=== PATIENT | female | born 1940 | race Caucasian/White ===

== ENCOUNTER 2022-12-31 14:52 | Outpatient (REF) | payer MEDICARE, SELFPAY ==
--- NOTE | ~2022-12-31 | XR_ITS ---
EXAMINATION: XR SHOULDER, RIGHT CLINICAL INFORMATION: Reason for Exam M25.511 - Pain in right shoulder COMPARISON: None TECHNIQUE: Three views of the shoulder. FINDINGS: No acute fracture or dislocation. Loss of subacromial joint space which can be seen in the setting of rotator cuff pathology. Dense nonspecific soft tissue calcifications in the arm measuring up to 1.5 cm. Moderate degenerative changes of the common clavicular and glenohumeral joints with loss of joint space.. A 2 cm calcification in the subacromial joint space may reflect a loose body. XR/XR shoulder RT min 2V IMPRESSION: 1. Loss of subacromial joint space which can be seen in the setting of rotator cuff pathology. 2. Moderate degenerative changes of the shoulder with a 2 cm calcification in the subacromial joint space may reflect a loose body. 3. No acute fracture or dislocation.
[2022-12-31 17:21] LABS: MANUAL DIFF FLAG NO
[2022-12-31 17:59] LABS: Basophils Percent Auto 0.5 % (0-2); Eosinophils Percent Auto 0.5 % (0-4); Hematocrit 40.6 % (37.0-47.0); Hemoglobin 13.2 g/dl (12.0-16.0); Imm Gran Abs Auto 0.02 X10*3/uL (0.00-0.03); Imm Gran Pct Auto 0.3 % (0.0-0.4); Lymphocytes Absolute Auto 0.9 X10*3/uL (1.2-4.9); Lymphocytes Percent Auto 14.4 % (20-40); Mean Corpuscular HGB Conc 32.5 g/dl (31.0-35.0); Mean Corpuscular Hemoglobin 31.7 pg (27.0-33.0); Mean Corpuscular Volume 97.6 fL (80.0-98.0); Mean Platelet Volume 11.6 fL (9.4-12.3); Monocytes Absolute Auto 0.4 X10*3/uL (0.1-1.2); Monocytes Percent Auto 6.7 % (2-11); Neutrophils Percent Auto 77.6 % (45-73); Platelet Count 301 X10*3/uL (160-400); Red Blood Count 4.16 X10*6/uL (4.20-5.50); Red Cell Distribution Width 14.1 % (11.0-16.0); White Blood Count 6.5 X10*3/uL (4.8-10.8)
[2022-12-31 18:34] LABS: Alanine Aminotransferase 27 U/L (0-31); Albumin Level 4.7 g/dL (3.5-5.0); Alkaline Phosphatase 49 U/L (39-117); Anion Gap 15 (12-20); Aspartate Amino Transferase 27 U/L (5-31); Bilirubin Total 0.7 mg/dL (0.0-1.0); Blood Urea Nitrogen 23 mg/dL (9-16); C Reactive Protein < 0.10 mg/dL (< or = 0.50); Calcium 10.2 mg/dL (8.4-10.2); Carbon Dioxide 28 mmol/L (22-29); Chloride 104 mmol/L (96-108); Estimated Glomerular Filt Rate > 60; Glucose Random 91 mg/dL (60-115); Potassium 3.9 mmol/L (3.3-5.1); Sodium 143 mmol/L (135-145); Total Protein 6.8 g/dL (6.5-8.0)
[2022-12-31 18:36] LABS: Erythrocyte Sedimentation Rate 13 MM/HR (0-20)
== END 2022-12-31 14:53 | disposition home or self-care (01) ==
LOC: HO.XRAY 14:52
PROVIDERS: PCP Physician Assistant Medical; Visit Provider Nurse Practitioner Family
DX: M34.9 Systemic sclerosis, unspecified (principal); M25.511 Pain in right shoulder; I73.00 Raynaud's syndrome without gangrene; M25.50 Pain in unspecified joint; M79.10 Myalgia, unspecified site; Z79.899 Other long term (current) drug therapy; Z79.52 Long term (current) use of systemic steroids
CPT/HCPCS: 36415; 73030; 80053; 85025; 85652; 86140; 99202

== ENCOUNTER → 2023-01-24 13:09 | Outpatient (BNVA) | payer MEDICARE, SELFPAY | PROVIDERS: PCP Physician Assistant Medical; Visit Provider Nurse Practitioner Family | DX: M34.9 Systemic sclerosis, unspecified (principal); I73.00 Raynaud's syndrome without gangrene; M25.511 Pain in right shoulder; Z79.52 Long term (current) use of systemic steroids; Z79.899 Other long term (current) drug therapy | CPT/HCPCS: 99212 ==

== ENCOUNTER → 2023-01-25 12:35 | Outpatient (REF) | payer MEDICARE, SELFPAY ==
--- NOTE | 2023-01-25 12:38 | CA_ITS ---
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 The visually estimated ejection fraction is between 65-70%. - Normal right ventricular cavity size and systolic function. - The left atrium is likely dilated. The right atrium is normal in size. - Aortic sclerosis without stenosis. - Tricuspid regurgitation envelope is inadequate for calculation of right ventricular systolic pressure. Normal right atrial pressure. Findings Left Ventricle Normal left ventricular size and systolic function. The visually estimated ejection fraction is between 65-70%. There is no evidence of regional wall motion abnormalities. Diastolic function is indeterminate on the basis of available data. There is mild septal asymmetric hypertrophy. Left ventricular filling pressures are indeterminate. Right Ventricle Normal right ventricular cavity size and systolic function. Atria The left atrium is likely dilated. The right atrium is normal in size. Aortic Valve There is mild calcification of the aortic valve. There is no aortic valve regurgitation. Aortic sclerosis without stenosis. Mitral Valve There is severe mitral annular calcification. There is mild mitral valve regurgitation. There is no mitral valve stenosis. Pulmonic Valve Normal pulmonic valve structure and function. There is trace pulmonic valve regurgitation. Tricuspid Valve Normal tricuspid valve structure and function. There is trace tricuspid valve regurgitation. Tricuspid regurgitation envelope is inadequate for calculation of right ventricular systolic pressure. Normal right atrial pressure. Great Vessels All visible segments of the aorta are normal in size. The visualized portions of the pulmonary artery and branches are normal. Venous The inferior vena cava is normal in size and collapses greater than 50% with inspiration. Pericardium/Pleural There is no evidence of pericardial effusion. Prior Study Comparison No prior study available for comparison. Measurements 2D Linear Measurements IVSd: 1.19 0.6-0.9/0.6-1.0 cm LVIDd: 4.26 3.9-5.3/4.2-5.9 cm LVIDd Index: 2.78 2.4-3.2/2.2-3.1 cm/m2 LVIDs: 2.55 2.0-3.6 cm LVPWd: 0.69 0.7-1.1 cm LA Diam: 3.50 2.7-3.8/3.0-4.0 cm LAIDs Index: 2.29 1.5-2.3 cm/m2 LV Mass: 160.33 67-162/88-224 g LV Mass Index: 104.79 43-95/49-115 g/m2 LVOT Diam: 1.80 3.0+(-)1.3 cm 2D Systolic Function EF 4C: 74.60 >55% EF 2C: 71.70 >55% EF BiP: 72.50 >55% Mitral Valve MV Pk E: 1.11 MV PK A: 1.11 MV Decel Time: 186.00 E/A: 1.00 E'Lateral: 6.31 E'Medial: 6.42 E/E' Med: 17.30 E/E' Lat: 17.60 PHT: 54.00 MVA PHT: 4.07 Decel [place]: 5.99 Aortic Valve AoV Pk Olu: 1.90 AoV Mn Oul: 1.27 AoV VTI: 0.47 AoV Pk Grad: 14.00 Aov Mn Grad: 8.00 PEDRITO Cont.VTI: 1.59 LVOT LVOT Pk Olu: 1.16 LVOT Mn Olu: 0.82 LVOT VTI: 0.30 LVOT Pk Grad: 5.00 LVOT Mn Grad: 3.00 LVOT Diam: 1.80 LVOT Area: 2.54 Diastolic Function MV Pk E: 1.11 MV Pk A: 1.11 E/A: 1.00 E'Medial: 6.42 E/E' Med: 17.30 E' Laterial: 6.31 E/E' Lat: 17.60 Right Ventricle TAPSE (mm): 20.70 TVS' Olu: 8.05 Tricuspid Valve RA Press: 8.00 Great Vessels Aorta Sinus of Valsalva: 2.80 2.0-3.5 cm Ao Asc: 3.10 2.1-3.4 cm Ao Arch: 3.00 Ao Desc: 1.50 Pulmonary Valve PV Pk Olu: 0.84 Peak PV Grad: 3.00 Updated in Other Vendor System with Status of Final Woo Guerrero MD electronically signed on 01/27/2023 11:31:34 AM with status of Final
== END ==
LOC: HO.CARD 12:35
PROVIDERS: PCP Physician Assistant Medical; Visit Provider Nurse Practitioner Family
DX: M34.9 Systemic sclerosis, unspecified (principal)
CPT/HCPCS: 93306

== ENCOUNTER 2023-04-15 13:31 | Outpatient (AMB) | payer MEDICARE, SELFPAY ==
[2023-04-15 13:34] VITALS: BP 122/64; PULSE 68; TEMP 36.7; BMI 25.5
--- NOTE | 2023-04-15 13:34 | A.OFFVIS_ITS ---
Intake Vital Signs 04/15/23 13:34 Height 5 ft Weight 130 lb 8.218 oz BMI 25.5 BP 122/64 Blood Pressure Location Rt brachial Position Sitting Pulse 68 Pulse Source Palpation Temp 98.1 F Temp Source Skin Intake Visit Reasons: Limited Scleroderma Shipping Receiving Clerk Required: No Accompanied by: Self / Same As Patient Allergies itraconazole [From Sporanox] Allergy (Intermediate, Verified 04/15/23 13:37) hives sulfamethoxazole [From Bactrim] Allergy (Unknown, Verified 04/15/23 13:37) Thrush trimethoprim [From Bactrim] Allergy (Unknown, Verified 04/15/23 13:37) Unknown HPI HPI Comments History of Present Illness Details The patient returns for evaluation of her rheumatic disease. This has been called undifferentiated connective tissue disease but recently she has had calcified nodules removed from the tips of fingers in the left hand. This was consistent with cutaneous calcinosis so with the Raynaud's symptoms, sclerodactyly, and positive anticentromere antibody this seems most consistent with CREST syndrome. She complains mostly today of right shoulder, right knee, and bilateral hip pain. She says walking is limited because of hip pain, right greater than left. She has a planned visit with a doctor who does injections, I would presume they are trochanteric bursa injections that might help her with her walking. She also gets pain and injections in the left knee. She recently had an injection in the left knee in March but it is symptomatic again so it did not really work very well. She gets also occasional injections in the right shoulder and thinks she needs another one there as well. She remains on the methotrexate but we had to reduce the dose to 12.5 mg weekly with folic acid 1 mg daily and hydroxychloroquine 300 mg daily. The prednisone has been reduced to 2 mg daily. She is on monthly ibandronate orally for osteopenia. 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 Negative for appetite change, weight change, fever, chills, malaise Eyes Details: Negative for vision change, dry eyes,headaches and dizziness ENT Details: Some oral dryness. Negative for hearing change, tinnitus, oral ulcer, nose bleeds . Card Details: Negative chest pain, edema and syncope Resp Details: Negative for SOB, cough and wheezing GI Details: Negative indigestion/heartburn, nausea, dysphagia, abdominal pain, bowel changes, diarrhea, constipation and bloody stool. Skin/Breast Details: Raynaud's symptoms not all that bothersome. No real change in the tight skin in the fingertips. No cutaneous ulcerations. The removal of the calcified nodules from the left 3rd and 4th finger was uneventful with good healing. Negative for itching, rash, hives, sun sensitivity, and skin cancer Endo Details: Negative for polyuria and polydypsia Pollo/Lymph Details: Negative for excessive bruising or bleeding. Physical Exam Vital Signs: Last Vital Signs Temp 98.1 F 04/15/23 13:34 Pulse 68 04/15/23 13:34 BP 122/64 04/15/23 13:34 BMI result Body Mass Index 25.5 APPEARANCE: Patient in no acute distress EYES no redness, pupils equal and reactive to light, eyelids normal EARS: External ear normal, canal clear and tympanic membrane normal. NOSE/SINUS: Airflow through both nares, no nasal discharge, no bleeding THROAT: Oral mucosa moist, no ulcerations NECK: No thyromegaly or masses, no adenopathy, trachea midline. HEART: Regulrar rhythm, S1-S2 heard, no murmurs, rubs or gallops. LUNG: Clear to percussion and auscultation ABD: Normal bowel sounds, no organomegaly, masses or tenderness. EXTREMITIES: No edema, no calf tenderness, normal peripheral pulses. NEURO: Oriented and alert x3. No focal weakness. Reflexes symmetric. Gait normal. SKIN: No inflammatory or neoplastic lesions. Normal color and turgor JOINT EXAM: ?? NEURO:? Oriented and alert x3.? No focal weakness.? Gait antalgic, uses a cane or a walker. She has difficulty standing up from a chair mostly due to hip and knee pain. SKIN: Many scattered telangectasia on face. Few on fingers.? Some tightness of skin distal to the MCPs but no ulcerations. There is some nodularity in the tip of the 2nd and 3rd fingers of the right hand suggesting some cutaneous ca lcifications. The site on the other hand where the tips of the fingers were operate on seem to have healed well. JOINT EXAM: Cervical Spine: Full range of motion without pain; no tenderness. Thoracic Spine: Kyphotic.? No tenderness on palpation. Lumbar Spine: Alignment normal.? Full range of motion without pain, no tenderness. Hands: LEFT:? left thumb subluxed lateral at the MCP. ? Slight thickening without tenderness at the 1st 3 MCPs and the 2nd and 3rd PIP's.? Mild bony enlargement without tenderness at the 4th and 5th PIP joints. No sensory loss or thenar atrophy. ? RIGHT: Full range of motion. Slight thickening at the thumb MCP without tenderness. There is mild bony enlargement at the 3rd through 5th PIP and the 5th D IP joints without tenderness. Slight flexion deformity at the 5th DIP and in the PIP'is. Wrists:? Normal pain-free range of motion without tenderness, swelling, increased warmth or erythema. Elbows: Normal pain-free range of motion without tenderness, swelling, increased warmth or erythema. Shoulders:??LEFT: Full range of motion without pain. No tenderness, weakness, swelling, increased warmth or erythema. ? RIGHT: Pain with 90 degrees of flexion at 90 degrees of abduction or with more than 20 degrees of rotation. There is slight AC joint tenderness and moderate tenderness anteriorly and posteriorly in the shoulder without swelling. There may be some abductor weakness. No adenopathy. degrees. Hips: Snod-sm-wkyfkzaf buttock and lateral hip pain with extremes of normal internal or external rotation. No groin pain with motion. Hip bursa:? Moderate right and mild left trochanteric tenderness. Knees:?? LEFT: Mild to moderate pain with more than 45 degrees flexion or extension. There is a small effusion evident with mild medial tenderness. There is mild patellofemoral crepitus and some trace popliteal tenderness. No redness or warmth. ? RIGHT: Slight pain with extremes of flexion or extension. There is mild crepitus with mild medial and lateral tenderness but no effusion, redness, or warmth. Ankles: Normal pain-free range of motion without tenderness, swelling, increased warmth or erythema. Feet: No tenderness. Results Reviewed Results Reviewed: Laboratory Tests 12/31/22 12/31/22 12/31/22 17:18 17:18 17:18 WBC 6.5 Hgb 13.2 ESR 13 Creatinine 0.77 AST 27 ALT 27 C-Reactive Protein < 0.10 Labs from [facility] reference labs: 04/02/2023: Hemoglobin 11.7, white count 5.8, ESR 6, creatinine 0.6, SGOT 23, SGPT 23, CRP less than 0.3 [place] [id number] XRay Report Signed Patient: Basilia Miramontes MR#: [id number] : 1940 Acct:[id number] Age/Sex: 82 / F ADM Date: 12/31/[address]: Madiha Barnes NP Ordering Physician: Madiha Barnes NP Date of Service: 12/31/22 Procedure(s): XR shoulder RT min 2V Accession Number(s): [id number] cc: Madiha Barnes NP~ EXAMINATION: XR SHOULDER, RIGHT CLINICAL INFORMATION: Reason for Exam M25.511 - Pain in right shoulder COMPARISON: None? TECHNIQUE: Three views of the shoulder. FINDINGS: No acute fracture or dislocation. Loss of subacromial joint space which can be seen in the setting of rotator cuff pathology. Dense nonspecific soft tissue calcifications in the arm measuring up to 1.5 cm. Moderate degenerative changes of the common clavicular and glenohumeral joints with loss of joint space.. A 2 cm calcification in the subacromial joint space may reflect a loose body. XR/XR shoulder RT min 2V IMPRESSION: 1.? Loss of subacromial joint space which can be seen in the setting of rotator cuff pathology. 2.? Moderate degenerative changes of the shoulder with a 2 cm calcification in the subacromial joint space may reflect a loose body. 3.? No acute fracture or dislocation. ? Dictated By: Conchita Lema MD Assessment & Plan Assessment & Plan (1) FDC use of drug: Code(s): Z79.899 - Other long wall mining machine tender (current) drug therapy (2) Osteopenia: Code(s): M85.80 - Other specified disorders of bone density and structure, unspecified site (3) Limited scleroderma: Code(s): M34.9 - Systemic sclerosis, unspecified (4) Hip pain, bilateral: Code(s): M25.551 - Pain in right hip; M25.552 - Pain in left hip (5) Undifferentiated connective tissue disease: Comment: hx of mild sclerodactyly; Positive DIAMANTE centromere, Rheumatoid factor positive, C CP negative. 01/2023-Cutaneous calcifications removed from the fingertips of the left hand. History of synovitis in hands - methotrexate 7 tabs weekly, 1mg folic acid daily, 3mg prednisone daily and plaquenil 300mg po daily. Previously on leflunomide discontinued around 06/2022 due to weight loss. Code(s): M35.9 - Systemic involvement of connective tissue, unspecified (6) Osteoarthritis of right glenohumeral joint: Code(s): M19.011 - Primary osteoarthritis, right shoulder (7) CREST (calcinosis, Raynaud's phenomenon, esophageal dysfunction, sclerodactyly, telangiectasia): Comment: hx of mild sclerodactyly; Positive DIAMANTE centromere, Rheumatoid factor positive, CCP negative. 01/2023-Cutaneous calcifications removed from the fingertips of the left hand. History of synovitis in hands - methotrexate 7 tabs weekly, 1mg folic acid daily, 3mg prednisone daily and plaquenil 300mg po daily. Previously on leflunomide discontinued around 06/2022 due to weight loss. Code(s): M34.1 - CR(E)ST syndrome Plan The patient has some findings of CREST syndrome: Calcinosis, Raynaud's, sclerodactyly and telangiectasias. The anticentromere antibody is positive. She also has findings mostly of osteoarthritis involving the hands and the left knee. The cause of her hip pain is unclear. It could be from hip joint OA but she has fairly good range of motion in the hips. More likely it is referred pain from the lumbar spine OA or some trochanteric bursitis. We will see how the planned injection works to improve her walking. I will get some hip films to try to clarify whether she might have some hip joint pathology. There is a question as to how much of her disease is reversible and due to active inflammation versus secondary and primary osteoarthritis at this point. We had cut back on her methotrexate because of LFT abnormalities. I am not sure she has enough synovitis here to push for more aggressive treatment with a biologic. If the back pain and hip pain improve with the corticosteroid injection and the left knee remains a problem she may need a knee replacement at this point. She should remain on the ibandronate for the osteoporosis. A follow-up in 2 months is recommended with lab work before that visit. Orders: Orders XR hip LT min 2V Today M25.551 - Pain in right hip, M25.552 - Pain in left hip XR hip RT min 2V Today M25.551 - Pain in right hip, M25.552 - Pain in left hip Alanine Aminotransferase Today M35.9 - Systemic involvement of connective tissue, unspecified, Z79.899 - Other long wall mining machine tender (current) drug therapy Aspartate Amino Transferase Today M35.9 - Systemic involvement of connective tissue, unspecified, Z79.899 - Other long wall mining machine tender (current) drug therapy Creatinine Today M35.9 - Systemic involvement of connective tissue, unspecified, Z79.899 - Other senior living (current) drug therapy C Reactive Protein Today M35.9 - Systemic involvement of connective tissue, unspecified Complete Blood Count Auto Diff Today M35.9 - Systemic involvement of connective tissue, unspecified, Z79.899 - Other senior living (current) drug therapy Erythrocyte Sedimentation Rate Today M35.9 - Systemic involvement of connective tissue, unspecified Coding Level of Care Code Est Pt Level 4 (17689) Diagnoses terminologist use of drug Z79.899 Osteopenia M85.80 Limited scleroderma M34.9 Hip pain, bilateral M25.551; M25.552 Undifferentiated connective tissue disease M35.9 Osteoarthritis of right glenohumeral joint M19.011 CREST (calcinosis, Raynaud's phenomenon, esophageal dysfunction, sclerodactyly, telangiectasia) M34.1
== END 2023-04-15 14:28 | disposition home or self-care (01) ==
PROVIDERS: PCP Physician Assistant Medical; Visit Provider Internal Medicine Rheumatology
DX: M34.9 Systemic sclerosis, unspecified (principal); M34.1 CR(E)ST syndrome; Z79.899 Other long term (current) drug therapy; M85.80 Other specified disorders of bone density and structure, unspecified site; M25.551 Pain in right hip; M25.552 Pain in left hip; M19.011 Primary osteoarthritis, right shoulder; M35.9 Systemic involvement of connective tissue, unspecified
CPT/HCPCS: 99214

== ENCOUNTER 2023-04-15 13:31 | Outpatient (REF) | payer MEDICARE, SELFPAY ==
--- NOTE | ~2023-04-15 | XR_ITS ---
EXAMINATION: XR HIP, RIGHT CLINICAL INFORMATION: Pain. COMPARISON: None available. TECHNIQUE: AP and frog-leg lateral views of the right hip. FINDINGS: There is mild bony demineralization. Bony alignment is normal. The right acetabular joint space is well-maintained. Loose bodies are questioned within the joint space. No fracture or dislocation is seen. The right femoral head is smooth. The right sacroiliac joint and the pubic symphysis are intact. Multiple enthesophytes are noted. There is no foreign body. XR/XR hip LT min 2V IMPRESSION: 1. No unusual degenerative change of the right hip is seen. 2. There is no fracture or dislocation. 3. Loose bodies are questioned within the right hip joint space. EXAMINATION: XR HIP, LEFT CLINICAL INFORMATION: Pain. COMPARISON: None available. TECHNIQUE: AP and frog-leg lateral views of the left hip. FINDINGS: There is mild bony demineralization. Bony alignment is normal. The left acetabular joint space is well-maintained. There is mild subchondral sclerosis and peripheral osteophyte formation of the left acetabular roof. As a contralateral side, a loose body is questioned within the joint space. No fracture or dislocation is seen. The left femoral head is smooth. The left sacroiliac joint is intact. There are enthesophytes of the iliac spine and the greater tuberosity proximal left humerus. No foreign body is seen. IMPRESSION: 1. There is very mild osteoarthritic change of the left hip. 2. There is no fracture or dislocation. 3. A loose body is questioned within the left hip joint space.
--- NOTE | ~2023-04-15 | XR_ITS ---
EXAMINATION: XR HIP, RIGHT CLINICAL INFORMATION: Pain. COMPARISON: None available. TECHNIQUE: AP and frog-leg lateral views of the right hip. FINDINGS: There is mild bony demineralization. Bony alignment is normal. The right acetabular joint space is well-maintained. Loose bodies are questioned within the joint space. No fracture or dislocation is seen. The right femoral head is smooth. The right sacroiliac joint and the pubic symphysis are intact. Multiple enthesophytes are noted. There is no foreign body. XR/XR hip RT min 2V IMPRESSION: 1. No unusual degenerative change of the right hip is seen. 2. There is no fracture or dislocation. 3. Loose bodies are questioned within the right hip joint space. EXAMINATION: XR HIP, LEFT CLINICAL INFORMATION: Pain. COMPARISON: None available. TECHNIQUE: AP and frog-leg lateral views of the left hip. FINDINGS: There is mild bony demineralization. Bony alignment is normal. The left acetabular joint space is well-maintained. There is mild subchondral sclerosis and peripheral osteophyte formation of the left acetabular roof. As a contralateral side, a loose body is questioned within the joint space. No fracture or dislocation is seen. The left femoral head is smooth. The left sacroiliac joint is intact. There are enthesophytes of the iliac spine and the greater tuberosity proximal left humerus. No foreign body is seen. IMPRESSION: 1. There is very mild osteoarthritic change of the left hip. 2. There is no fracture or dislocation. 3. A loose body is questioned within the left hip joint space.
== END 2023-04-15 13:32 | disposition home or self-care (01) ==
LOC: HO.XRAY 13:31
PROVIDERS: Visit Provider Internal Medicine Rheumatology
DX: M85.80 Other specified disorders of bone density and structure, unspecified site (principal); M34.9 Systemic sclerosis, unspecified; M25.551 Pain in right hip; M25.552 Pain in left hip; M35.9 Systemic involvement of connective tissue, unspecified; M19.011 Primary osteoarthritis, right shoulder; Z79.899 Other long term (current) drug therapy
CPT/HCPCS: 73502; 99212

== ENCOUNTER 2023-07-01 14:12 | Outpatient (AMB) | payer MEDICARE, SELFPAY ==
[2023-07-01 14:37] VITALS: BP 110/74; PULSE 60; RESP 14; TEMP 36.3; BMI 25.1
--- NOTE | 2023-07-01 14:37 | MHC.OFFVIS ---
Intake Vital Signs 07/01/23 14:37 Height 5 ft Weight 128 lb 11.999 oz BMI 25.1 BP 110/74 Blood Pressure Location Rt brachial Position Sitting Respiration 14 Pulse 60 Pulse Source Palpation Temp 97.3 F Temp Source Skin Intake Visit Reasons: UCTD Intake Note: Patient presents today to follow up on UCTD. c/o low back pain, muscle soreness, joint pain, leg weakness, feels like she is going to fall, trouble staying asleep due to pain, difficulty standing up [employer] Required: No Accompanied by: Self / Same As Patient Allergies itraconazole [From Sporanox] Allergy (Intermediate, Verified 07/01/23 14:45) hives sulfamethoxazole [From Bactrim] Allergy (Unknown, Verified 07/01/23 14:45) Thrush trimethoprim [From Bactrim] Allergy (Unknown, Verified 07/01/23 14:45) Unknown Medication List - Last Reconciled 07/01/23 by Leoabrdo Ventura MD acetaminophen ER (Tylenol Arthritis Pain) 650 mg PO Q12H PRN amlodipine 5 mg PO DAILY ammonium lactate 12% 1 appl topical DAILY atorvastatin 40 mg PO DAILY calcium carbonate-vitamin D3 600 mg-10 mcg (400 unit) (Calcium 600 + D(3)) 1 tab PO BID cholecalciferol (vitamin D3) 25 mcg PO DAILY fluticasone propionate 50 mcg/actuation (Allergy Relief (fluticasone)) 1 spray intranasal BID folic acid 1 mg PO DAILY gabapentin 100 mg PO BID hydrochlorothiazide 25 mg PO DAILY hydroxychloroquine (Plaquenil) 300 mg PO DAILY ibandronate 150 mg PO .monthly ketoconazole 2% 1 appl topical DAILY latanoprost 0.005% 1 drp ophthalmic (eye) DAILY lisinopril 40 mg PO DAILY methotrexate sodium 17.5 mg PO QWEEK metoprolol succinate ER 12.5 mg PO DAILY omega 2-nud-sbs-fish oil 1,000 mg (120 mg-180 mg) (Fish Oil) 1 cap PO DAILY omega 6-esv-txb-fish oil 1,000 mg (120 mg-180 mg) (Fish Oil) 1 cap PO DAILY omeprazole 20 mg PO DAILY polyethylene glycol 3350 (Miralax) 17 grams PO DAILY prednisone 2 mg PO DAILY vitamin B complex (B Complex-Vitamin B12 tablet) 1 tab PO DAILY HPI HPI Comments History of Present Illness Details 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 She reports some increase in overall muscle pains over the past 2 months. This seems to involve neck, shoulders, hips, lower back and knees. We had reduced her prednisone from 3 mg daily to 2 mg daily at the end of March. She remains on hydroxychloroquine 300 mg daily methotrexate 12.5 mg daily. She had lab work done in [place] on June 17: Transaminases were normal, creatinine 0.6, CRP 0.5, white count 5.6, hemoglobin 11.6, ESR 5. She had an injection in the right shoulder that did not help much. She does not have any headache, jaw claudication or visual disturbance. 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 Negative for appetite change, weight change, fever, chills, malaise Eyes Details: Negative for vision change, dry eyes,headaches and dizziness ENT Details: Negative for hearing change, tinnitus, oral ulcer, nose bleeds and oral dryness. Card Details: Negative chest pain, edema and syncope Resp Details: Negative for SOB, cough and wheezing GI Details: Negative indigestion/heartburn, nausea, abdominal pain, bowel changes, diarrhea, constipation and bloody stool. Endo Details: Negative for polyuria and polydypsia Pollo/Lymph Details: Negative for excessive bruising or bleeding. Physical Exam Vital Signs: Last Vital Signs Temp 97.3 F 07/01/23 14:37 Pulse 60 07/01/23 14:37 Resp 14 07/01/23 14:37 BP 110/74 07/01/23 14:37 BMI result Body Mass Index 25.1 APPEARANCE: Patient in no acute distress EYES no redness, pupils equal and reactive to light, eyelids normal there. No temporal artery tenderness, redness or swelling. EXTREMITIES: No edema, no calf tenderness, normal peripheral pulses. JOINT EXAM: SKIN: Many scattered telangectasia on face. Few on fingers.? Some tightness of skin distal to the MCPs but no ulcerations. There is some nodularity in the tip of the 2nd and 3rd fingers of the right hand suggesting some cutaneous calcifications. The site on the other hand where the tips of the fingers were operate on seem to have healed well. JOINT EXAM: Cervical Spine: Full range of motion without pain; no tenderness. Thoracic Spine: Kyphotic.? No tenderness on palpation. Lumbar Spine: Alignment normal.? Full range of motion without pain, no tenderness. Hands: LEFT:? left thumb subluxed lateral at the MCP. ? Slight thickening without tenderness at the 1st 3 MCPs and the 2nd and 3rd PIP's.? Mild bony enlargement without tenderness at the 4th and 5th PIP joints. No sensory loss or thenar atrophy. ? RIGHT: Full range of motion. Slight thickening at the thumb MCP without tenderness. There is mild bony enlargement at the 3rd through 5th PIP and the 5th D IP joints without tenderness. Slight flexion deformity at the 5th DIP and in the PIP'is. Wrists:? Normal pain-free range of motion without tenderness, swelling, increased warmth or erythema. Elbows: Normal pain-free range of motion without tenderness, swelling, increased warmth or erythema. Shoulders:??LEFT: Full range of motion without pain. No tenderness, weakness, swelling, increased warmth or erythema. ? RIGHT: Pain with 90 degrees of flexion at 90 degrees of abduction or with more than 20 degrees of rotation. There is slight AC joint tenderness and moderate tenderness anteriorly and posteriorly in the shoulder without swelling. There may be some abductor weakness. No adenopathy. degrees. Hips: [id number] buttock and lateral hip pain with extremes of normal internal or external rotation. No groin pain with motion. Hip bursa:? Moderate right and mild left trochanteric tenderness. Knees:?? LEFT: Mild to moderate pain with more than 45 degrees flexion or extension. There is a small effusion evident with mild medial tenderness. There is mild patellofemoral crepitus and some trace popliteal tenderness. No redness or warmth. ? RIGHT: Slight pain with extremes of flexion or extension. There is mild crepitus with mild medial and lateral tenderness but no effusion, redness, or warmth. Ankles: Normal pain-free range of motion without tenderness, swelling, increased warmth or erythema. Feet: No tenderness. ?? Results Reviewed Results Reviewed: [address] [place] [address] XRay Report Signed Patient: Basilia Miramontes #: [id number] : 1940 Acct:[id number] Age/Sex: 82 / F ADM Date: 04/15/[address]: Leobardo Ventura MD Ordering Physician: Leobardo Ventura MD Date of Service: 04/15/23 Procedure(s): XR hip RT min 2V Accession Number(s): [id number] cc: Leobardo Ventura MD~ EXAMINATION: XR HIP, RIGHT CLINICAL INFORMATION: Pain. COMPARISON: None available. TECHNIQUE: AP and frog-leg lateral views of the right hip. FINDINGS: There is mild bony demineralization. Bony alignment is normal. The right acetabular joint space is well-maintained. Loose bodies are questioned within the joint space. No fracture or dislocation is seen. The right femoral head is smooth. The right sacroiliac joint and the pubic symphysis are intact. Multiple enthesophytes are noted. There is no foreign body. XR/XR hip RT min 2V IMPRESSION: 1. No unusual degenerative change of the right hip is seen. 2. There is no fracture or dislocation. 3. Loose bodies are questioned within the right hip joint space. EXAMINATION: XR HIP, LEFT CLINICAL INFORMATION: Pain. COMPARISON: None available. TECHNIQUE: AP and frog-leg lateral views of the left hip. FINDINGS: There is mild bony demineralization. Bony alignment is normal. The left acetabular joint space is well-maintained. There is mild subchondral sclerosis and peripheral osteophyte formation of the left acetabular roof. As a contralateral side, a loose body is questioned within the joint space. No fracture or dislocation is seen. The left femoral head is smooth. The left sacroiliac joint is intact. There are enthesophytes of the iliac spine and the greater tuberosity proximal left humerus. No foreign body is seen. IMPRESSION: 1. There is very mild osteoarthritic change of the left hip. 2. There is no fracture or dislocation. 3. A loose body is questioned within the left hip joint space. Dictated By: Nazario Saab MD Signed By: <Electronically signed by Nazario Saab MD in OV> 04/18/231921 D/ 1544 See recent labs noted in HPI Assessment & Plan Assessment & Plan (1) Osteoarthritis of right glenohumeral joint: Code(s): M19.011 - Primary osteoarthritis, right shoulder (2) continuous churn buttermaker use of drug: Code(s): Z79.899 - Other jail (current) drug therapy (3) CREST (calcinosis, Raynaud's phenomenon, esophageal dysfunction, sclerodactyly, telangiectasia): Comment: hx of mild sclerodactyly; Positive DIAMANTE centromere, Rheumatoid factor positive, CCP negative. 01/2023-Cutaneous calcifications removed from the fingertips of the left hand. History of synovitis in hands - methotrexate 7 tabs weekly, 1mg folic acid daily, 3mg prednisone daily and plaquenil 300mg po daily. Previously on leflunomide discontinued around 06/2022 due to weight loss. Code(s): M34.1 - CR(E)ST syndrome Plan At this point she has had some increase in morning stiffness and muscle pains consistent with PMR. I do not see small joint peripheral synovitis today. The skin findings of crest seems stable. However the CRP and sed rate remain normal. She does recall similar symptoms at the onset of her rheumatic disease so I think it is likely that she has some element of PMR. We will increase her prednisone up to 4 mg b.i.d. for 3 days, 4 mg in the morning and 2 mg in the evening for 3 days, and then cut down to 4 mg daily where she had been comfortable before. She will call us if that does not work out. She will continue with the methotrexate and hydroxychloroquine as above. Lab work is ordered before next visit in about 6 weeks. Medications: Changed From prednisone 2 mg PO DAILY To prednisone 4 tab twice a day for 3 days, 4 tab in AM and 2 tab in PM for 3 days then 4 tab once daily 138 tabs 3RF Coding Level of Care Code Est Pt Level 3 (71738) Diagnoses Osteoarthritis of right glenohumeral joint M19.011 continuous churn buttermaker use of drug Z79.899 CREST (calcinosis, Raynaud's phenomenon, esophageal dysfunction, sclerodactyly, telangiectasia) M34.1
== END 2023-07-01 15:41 | disposition home or self-care (01) ==
PROVIDERS: PCP Physician Assistant Medical; Visit Provider Internal Medicine Rheumatology
DX: M19.011 Primary osteoarthritis, right shoulder (principal); Z79.899 Other long term (current) drug therapy; M34.1 CR(E)ST syndrome
CPT/HCPCS: 99213

== ENCOUNTER → 2023-07-01 14:12 | Outpatient (BNVA) | payer MEDICARE, SELFPAY | PROVIDERS: PCP Physician Assistant Medical; Visit Provider Internal Medicine Rheumatology | DX: M34.1 CR(E)ST syndrome (principal); M19.011 Primary osteoarthritis, right shoulder; Z79.899 Other long term (current) drug therapy | CPT/HCPCS: 99212 ==

== ENCOUNTER 2023-07-31 11:09 | Outpatient (AMB) | payer MEDICARE, SELFPAY ==
--- NOTE | 2023-07-31 11:24 | MHC.OFFVIS ---
Intake Vital Signs 07/31/23 11:25 Height 5 ft Weight 118 lb 6.212 oz BMI 23.1 BP 136/66 Blood Pressure Location Rt brachial Position Sitting Pulse 68 Pulse Source Pulse Oximeter Intake Visit Reasons: crest/pmr Intake Note: Patient presents today to follow up on Crest/PMR. Last seen by Dr. Ventura on 07/01/23. Drafter Electrical Required: No Accompanied by: Spouse Allergies itraconazole [From Sporanox] Allergy (Intermediate, Verified 07/31/23 11:25) hives sulfamethoxazole [From Bactrim] Allergy (Unknown, Verified 07/31/23 11:25) Thrush trimethoprim [From Bactrim] Allergy (Unknown, Verified 07/31/23 11:25) Unknown Medication List - Last Reconciled 07/31/23 by Leobardo Ventura MD acetaminophen ER (Tylenol Arthritis Pain) 650 mg PO Q12H PRN amlodipine 5 mg PO DAILY ammonium lactate 12% 1 appl topical DAILY atorvastatin 40 mg PO DAILY calcium carbonate-vitamin D3 600 mg-10 mcg (400 unit) (Calcium 600 + D(3)) 1 tab PO BID fluticasone propionate 50 mcg/actuation (Allergy Relief (fluticasone)) 1 spray intranasal BID folic acid 1 mg PO DAILY gabapentin 100 mg PO BID hydrochlorothiazide 25 mg PO DAILY hydroxychloroquine (Plaquenil) 300 mg PO DAILY ibandronate 150 mg PO .monthly ketoconazole 2% 1 appl topical DAILY lisinopril 40 mg PO DAILY methotrexate sodium 12.5 mg PO QWEEK metoprolol succinate ER 12.5 mg PO DAILY omega 0-xya-zoj-fish oil 1,000 mg (120 mg-180 mg) (Fish Oil) 1 cap PO DAILY omeprazole 20 mg PO DAILY prednisone 4 mg PO DAILY vitamin B complex (B Complex-Vitamin B12 tablet) 1 tab PO DAILY HPI HPI Comments History of Present Illness Details The patient presents with her nephew. She continues to have pain in the right shoulder, lower back, hips and left knee. We had tried to treat this as a PMR flare up with increased prednisone but there was no improvement. She felt weaker and had more pain and presented to the [facility] ER on the . I was able to look at some of the notes there. They felt she had weakness and pain. They did a lumbar CT scan showing multiple levels of osteoarthritis and DJD. Her sed rate and CRP were normal. LFTs and CBC were normal. She has remained on hydroxychloroquine 300 mg daily, methotrexate 12.5 mg daily, folic acid 1 mg daily and takes folic acid 1 mg daily. She has an appointment next week to get her left knee looked at; she has a machine umbrella tipper who occasionally injects it. However difficulty walking stems not only from knee pain but also some pain in the left buttock and left leg. There is also numbness in both feet, more prominent on the left. She has no headache, jaw claudication or visual disturbance. She also has features of CREST syndrome but those seem to be stable. [facility] Medical History (Updated 07/31/23 @ 12:09 by Leobardo Ventura MD) Constipation Cataract Vitamin D deficiency Anxiety Varicose veins of bilateral lower extremities with other complications Carpal tunnel syndrome Glaucoma snf systemic steroid user DJD (degenerative joint disease) Undifferentiated connective tissue disease Atrophic vulva Allergic rhinitis Essential hypertension Hypercholesteremia Colonic polyp Surgical History H/O hernia repair H/O total hysterectomy History of colonoscopy History of carpal tunnel surgery Family History Mother Hypertension Diabetes Malignant lymphoma Father Myocardial infarct Hypertension Brother Hypertension Alcohol intake: never Patient Tobacco Use Status: Never used Tobacco Review of Systems Const Details: Low stamina with walking. Negative for appetite change, weight change, fever, chills, malaise Eyes Details: Negative for vision change, dry eyes,headaches and dizziness ENT Details: Negative for hearing change, tinnitus, oral ulcer, nose bleeds and oral dryness. Card Details: Negative chest pain, edema and syncope Resp Details: Negative for SOB, cough and wheezing GI Details: Negative indigestion/heartburn, nausea, abdominal pain, bowel changes, diarrhea, constipation and bloody stool. Details: Occasional leakage of urine. Negative for dysuria, hematuria, nocturia, decreased force/flow and genital discharge Skin/Breast Details: Negative for itching, rash, hives, Raynaud's symptoms, sun sensitivity, and skin cancer Neuro Details: Left leg weakness, numbness in the feet, more prominent on the left. Negative for epilepsy, palsy, stroke, changes in speech, Psych Details: Negative for anxiety, depression and stress Endo Details: Negative for polyuria and polydypsia Pollo/Lymph Details: Negative for excessive bruising or bleeding. Physical Exam Vital Signs: Last Vital Signs Pulse 68 07/31/23 11:25 BP 136/66 07/31/23 11:25 BMI result Body Mass Index 23.1 APPEARANCE: Patient in no acute distress EYES no redness, pupils equal and reactive to light, eyelids normal there. No temporal artery tenderness, redness or swelling. EXTREMITIES: No edema, no calf tenderness, normal peripheral pulses. NEURO: Oriented and alert. She does have some weakness in the left hip flexors, knee extension, and plantar flexion. There is decreased ankle jerk on the left. Other reflexes are 2+ in the knee and the right ankle. There is decreased sensation over the left foot in the distal tibial region on the left. There is slight decreased sensation in the toes of the right foot. She can barely walk but requires assistance in weight-bearing. JOINT EXAM: SKIN: Many scattered telangectasia on face. Few on fingers.? Some tightness of skin distal to the MCPs but no ulcerations. There is some nodularity in the tip of the 2nd and 3rd fingers of the right hand suggesting some cutaneous calcifications. The site on the other hand where the tips of the fingers were operate on seem to have healed well. JOINT EXAM: Cervical Spine: Full range of motion without pain; no tenderness. Thoracic Spine: Kyphotic.? No tenderness on palpation. Lumbar Spine: Alignment normal.? Full range of motion without pain, no tenderness. Hands: LEFT:? left thumb subluxed lateral at the MCP. ? Slight thickening without tenderness at the 1st 3 MCPs and the 2nd and 3rd PIP's.? Mild bony enlargement without tenderness at the 4th and 5th PIP joints. No sensory loss or thenar atrophy. ? RIGHT: Full range of motion. Slight thickening at the thumb MCP without tenderness. There is mild bony enlargement at the 3rd through 5th PIP and the 5th D IP joints without tenderness. Slight flexion deformity at the 5th DIP and in the PIP'is. Wrists:? Normal pain-free range of motion without tenderness, swelling, increased warmth or erythema. Elbows: Normal pain-free range of motion without tenderness, swelling, increased warmth or erythema. Shoulders:??LEFT: Full range of motion without pain. No tenderness, weakness, swelling, increased warmth or erythema. ? RIGHT: Pain with 90 degrees of flexion at 90 degrees of abduction or with more than 20 degrees of rotation. There is slight AC joint tenderness and moderate tenderness anteriorly and posteriorly in the shoulder without swelling. There may be some abductor weakness. No adenopathy. degrees. Hips: Mvja-qz-amadnvcw buttock and lateral hip pain with extremes of normal internal or external rotation. No groin pain with motion. Hip bursa:? Moderate right and mild left trochanteric tenderness. Knees:?? LEFT: Mild to moderate pain with more than 45 degrees flexion or extension. There is a small effusion evident with mild lateral and medial tenderness. There is mild patellofemoral crepitus and some trace popliteal tenderness. No redness or warmth. ? RIGHT: Slight pain with extremes of flexion or extension. There is mild crepitus with mild medial and lateral tenderness but no effusion, redness, or warmth. Ankles: Normal pain-free range of motion without tenderness, swelling, increased warmth or erythema. Feet: No tenderness. ?? Results Reviewed Results Reviewed: Data from July 26 visit to [facility] ER: White count 5.8, hemoglobin 11.7, ESR 12, CRP less than 0.3, alkaline phosphatase 59, AST 24, ALT 25, 07/26/23 RESULT: CT Lumbar Spine W/O Contrast CT Lumbar Spine W/O Contrast Hx of Present Illness: bilat leg pain and numbness x few months, getting worse, joint pain in hips and knees; Reason: Other:; Spine fracture, lumbar, traumatic; Clinical Question(s): Fracture Dislocation CLINICAL QUESTION: Fracture/Dislocation TECHNIQUE: Thin section axial images were acquired through the lumbar spine. Bone and soft tissue algorithms were reconstructed along with coronal and sagittal reformats. Weight-based protocol using automatic tube modulation was used to optimize exposure parameters. CTDIvol Body: 16.70 mGy, DLP Body: 494 mGy*cm. COMPARISON: None FINDINGS: Cut And Print Machine Operator View Findings, Lines and Tubes: None. Spine: There is diffuse osteopenia. There is no acute fracture. There is rotary scoliotic curvature of the lumbar spine which is apex levoconvex at the L3-L4 level. There are calcifications at the lower thoracic spine in the canal, T11-T12. This results in severe canal narrowing at this level. Degenerative changes result in severe left foraminal narrowing at L2-L3. Broad-based posterior disc bulge at L4-L5 results in moderate canal narrowing at this level. In combination with disc osteophyte complex there is also mild bilateral neural foraminal narrowing at this level. Soft tissues: Partially seen soft tissue show cholelithiasis. Moderate colonic stool burden. Distal colonic diverticula. Imaged small bowel loops are nondistended. There is severe calcified eccentric aortoiliac atherosclerosis. IMPRESSION: No acute fracture of the lumbar spine. Osteophytes and calcifications result in severe canal narrowing at T11-T12. This is above the level of the conus. Please correlate for symptoms - and acuity or chronicity of symptoms and consider further evaluation with MR. Incidentally seen cholelithiasis. WSN: [id number] Ordering Physician: Adela Servin Reason For Exam Spine fracture, lumbar, traumatic;Other: Signature Line Dictated By: Raquel Allison MD Dictated Date/Time: 07/27/23 2:11 pm [place] [id number] XRay Report Signed Patient: Basilia Miramontes MR#: [id number] : 1940 Acct:[id number] Age/Sex: 82 / F ADM Date: 12/31/[address]: Madiha Barnes NP Ordering Physician: Madiha Barnes NP Date of Service: 12/31/22 Procedure(s): XR shoulder RT min 2V Accession Number(s): [id number] cc: Madiha Barnes NP~ EXAMINATION: XR SHOULDER, RIGHT CLINICAL INFORMATION: Reason for Exam M25.511 - Pain in right shoulder COMPARISON: None TECHNIQUE: Three views of the shoulder. FINDINGS: No acute fracture or dislocation. Loss of subacromial joint space which can be seen in the setting of rotator cuff pathology. Dense nonspecific soft tissue calcifications in the arm measuring up to 1.5 cm. Moderate degenerative changes of the common clavicular and glenohumeral joints with loss of joint space.. A 2 cm calcification in the subacromial joint space may reflect a loose body. XR/XR shoulder RT min 2V IMPRESSION: 1. Loss of subacromial joint space which can be seen in the setting of rotator cuff pathology. 2. Moderate degenerative changes of the shoulder with a 2 cm calcification in the subacromial joint space may reflect a loose body. 3. No acute fracture or dislocation. Dictated By: Conchita Lema MD Signed By: <Electronically signed by Conchita Lema MD in [place]> 01/11/23 1541 Assessment & Plan Assessment & Plan (1) Osteoarthritis of right glenohumeral joint: Code(s): M19.011 - Primary osteoarthritis, right shoulder (2) CREST (calcinosis, Raynaud's phenomenon, esophageal dysfunction, sclerodactyly, telangiectasia): Comment: hx of mild sclerodactyly; Positive DIAMANTE centromere, Rheumatoid factor positive, CCP negative. 01/2023-Cutaneous calcifications removed from the fingertips of the left hand. History of synovitis in hands - methotrexate 7 tabs weekly, 1mg folic acid daily, 3mg prednisone daily and plaquenil 300mg po daily. Previously on leflunomide discontinued around 06/2022 due to weight loss. Code(s): M34.1 - CR(E)ST syndrome (3) snf use of drug: Code(s): Z79.899 - Other candle making supervisor (current) drug therapy (4) Lumbar radiculopathy: Code(s): M54.16 - Radiculopathy, lumbar region Plan The course of the increased prednisone did not result in any improvement in her weakness or pain. The acute phase reactants before and after were normal. This suggests that her problem is not at this point due to inflammatory arthritis such as PMR. The leg weakness suggests nerve damage from the entrapment or radiculopathy. The recent CT scan did indicate significant osteoarthritis. I think we need to get MRI to see if there is a reversible problem here that could improve her strength in her leg. She may require a neurosurgical evaluation but we need to get an MRI first. She lives in [facility] so doing the MRI here would be difficult. We will see if we can get it scheduled at [facility] in [place]. I told her to go ahead and get the left knee injected for the OA when she sees the machine umbrella tipper next week. He may be able to facilitate the MRI up in [place]. The right shoulder pain with motion is consistent with documented glenohumeral osteoarthritis. Her CREST syndrome seems stable for now. So for now she will stay with the hydroxychloroquine, methotrexate and 4 mg daily prednisone. Apparently she was taking 200 mg b.i.d. on the hydroxychloroquine. I told her the dose should be lower given her weight. We will taper to 300 mg daily for now. Follow-up in 2 months is recommended but hopefully by then we will get more data from her MRI. Orders: Orders MR lumbar spine wo con Today M54.16 - Radiculopathy, lumbar region, R29.898 - Other symptoms and signs involving the musculoskeletal system Medications: New prednisone 4 mg (4 x 1 mg) PO DAILY 120 tabs 2RF Coding Level of Care Code Est Pt Level 4 (92565) Diagnoses Osteoarthritis of right glenohumeral joint M19.011 CREST (calcinosis, Raynaud's phenomenon, esophageal dysfunction, sclerodactyly, telangiectasia) M34.1 manager portable use of drug Z79.899 Lumbar radiculopathy M54.16
[2023-07-31 11:25] VITALS: BP 136/66; PULSE 68; BMI 23.1
== END 2023-07-31 12:17 | disposition home or self-care (01) ==
LOC: HO.RHE 11:09
PROVIDERS: PCP Physician Assistant Medical; Visit Provider Internal Medicine Rheumatology
DX: M19.011 Primary osteoarthritis, right shoulder (principal); M34.1 CR(E)ST syndrome; Z79.899 Other long term (current) drug therapy; M54.16 Radiculopathy, lumbar region
CPT/HCPCS: 99214

== ENCOUNTER → 2023-07-31 11:09 | Outpatient (BNVA) | payer MEDICARE, SELFPAY | PROVIDERS: PCP Physician Assistant Medical; Visit Provider Internal Medicine Rheumatology | DX: M19.011 Primary osteoarthritis, right shoulder (principal); M34.1 CR(E)ST syndrome; M54.16 Radiculopathy, lumbar region; R29.898 Other symptoms and signs involving the musculoskeletal system; Z79.899 Other long term (current) drug therapy | CPT/HCPCS: 99212 ==

== ENCOUNTER 2023-08-09 14:20 | Outpatient (AMB) | payer MEDICARE, SELFPAY ==
--- NOTE | 2023-08-09 15:00 | HO.SPINEOV ---
Intake Intake Visit Reasons: left leg weakness & numbness Intake Note: Ms. Miramontes is here today c/o left leg weakness/numbness. 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 Ventura Thank you for referring Mrs Miramontes to our office today. She is a very nice 82-year-old female who has a history of crest syndrome, who has had four months of progressive numbness from her lower abdomen down to her toes with weakness of her legs and gait imbalance. She has also had urinary urgency with urgency incontinence. The symptoms began rather subtle but have steadily progressed now to her every week or 2 that goes by she is getting noticeably worse. She was in the emergency room a few weeks back and had a CT scan showing stenosis at T11-12 with calcifications. She underwent an MRI ultimately showing severe spinal cord compression at T11-12 with degenerative spondylolisthesis. She was sent to us for an urgent referral. 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 She has been on long-term prednisone, hydroxychloroquine and methotrexate for this. History of osteoporosis, hypertension, high cholesterol, hysterectomy, hernia repair, breast cyst removal, carpal tunnel surgery in her left hand twice Social hx: She does not smoke or use any significant alcohol Medications: Amlodipine, atorvastatin, folic acid, gabapentin, hydrochlorothiazide, hydroxychloroquine, ibandronate, lisinopril, methotrexate, metoprolol, omeprazole, prednisone Allergies: Bactrim, Itraconazole Physical exam: She is in a wheelchair here in the office today, she is able to stand up of the wheelchair with assistance but is very slow and unsteady to take more than a stepper 2. Cranial nerves are grossly intact. Her upper extremity strength is limited by a torn rotator cuff on her right arm so there is some limited strength there, left upper extremity strength is normal. Lower extremity strength testing reveals she has 2/5 strength in the left iliopsoas, 4-5 strength in the left quadriceps, 5/5 strength distally. She has 4/5 strength in the right iliopsoas. The right quadriceps and distal right lower extremity are full strength. There is sensory loss to the T12 dermatome. She has hyperreflexia in the lower extremities. Upper extremities have 3+ reflexes, no Rebolledo's sign. Imaging review: Patient has lumbar MRI done at [place] July 2023 showing multilevel degenerative disc disease of the lumbar spine, at T11-T12 there is a a degenerative listhesis with posterior ligamentous hypertrophy causing severe spinal cord compression. Impression: 82-year-old female with history of crest syndrome, scleroderma, long-term prednisone and osteoporosis presents with progressive paraparesis worse on the left with sensory changes and loss of sensation to light touch from T12 down to her feet. She has spinal cord compression at T11-12 with what appears to be degenerative listhesis and some ligamentous hypertrophy or possibly calcification in the posterior elements. I reviewed her case with Dr. Faustin, likely she is going to need instrumented fusion and stabilization with an interbody cage. I am going to get a stat thoracic spine CT and thoracic spine MRI and see her back early next week for definitive surgical planning, and have her meet with Dr. Faustin. I reviewed the patient's imaging with her and her son, they understand the urgency to the situation and I expect we will with booking her surgery sometime in the next few weeks as she has had significant progressive worsening over the last month or so. I asked her to hold off taking her methotrexate in light of upcoming surgeries. Thank you for allowing us to care for your patient. 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
== END 2023-08-09 15:55 | disposition home or self-care (01) ==
PROVIDERS: PCP Physician Assistant Medical; Referring Provider Internal Medicine Rheumatology; Visit Provider Physician Assistant
DX: M47.10 Other spondylosis with myelopathy, site unspecified (principal)
CPT/HCPCS: 99205

== ENCOUNTER → 2023-08-09 14:20 | Outpatient (BNVA) | payer MEDICARE, SELFPAY | PROVIDERS: PCP Physician Assistant Medical; Visit Provider Physician Assistant | DX: M47.10 Other spondylosis with myelopathy, site unspecified (principal) | CPT/HCPCS: 99202 ==

== ENCOUNTER 2023-08-13 14:29 | Outpatient (AMB) | payer MEDICARE, SELFPAY ==
--- NOTE | 2023-08-13 14:50 | HO.SPINEOV ---
Intake Intake Visit Reasons: Discuss surgery Intake Note: Ms. Miramontes is here today to discuss the results of her MRI and surgical options. 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 It confirms what we thought, that she has the severe spinal cord compression at T11-12 as seen on the [place] MRI of her lumbar spine. The CT shows that there is the spondylolisthesis and severely calcified masslike collections coming from the posterior elements extending into the spinal canal causing severe compression. We think because of her overlapping diagnosis of CREST that this may be related to the possible calcinosis component of that disorder. She does have some of it higher up in the midthoracic levels but there was nothing compressing the spinal cord. Dr. Faustin and I met with her and discussed at length the option of a T11-12 trans Kambin oblique lateral lumbar interbody fusion, with T11-12 pedicle screws and posterior fusion. We will reserve the right during surgery to extend the fusion up to the T10 level and down to the L1 level if we feel that the purchase of the screws in the T11-12 bone area is not adequate. At the time of surgery we will also address the large calcified collections that are compressing spinal cord by doing a left sided T11-12 approach to decompress the spinal cord. The patient will hold off on taking her methotrexate this week to give us some time to let her immune system come cloth bleaching range back tender to baseline. She will continue her prednisone but we have told her to double her dose up to 8 mg daily to see if it will help decrease the swelling around spinal cord slightly. The patient understands that the goal of surgery is not to bring her back to her premorbid independent function, but to prevent her from becoming wheelchair bound. We do expect to see some improvement but it is very difficult to determine exactly how much that will be. Only time will tell. Pt was given risk and benefits of surgery including but not limited to infection, hematoma , nerve injury,durotomy, weakness,bowel/bladder injury, persistent pain, hardware failure and persistent neurological deficits as well as the option to continue with conservative treatment and patient wishes to proceed with surgery. Pt is aware they should stop their motrin, aspirin 7 days prior to surgery. All questions were answered to the best of our ability. If there is anything about this patients medical history that we have overlooked or concerns you have about us proceeding with surgery we would appreciate any input you can offer. 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
== END 2023-08-13 15:57 | disposition home or self-care (01) ==
PROVIDERS: PCP Physician Assistant Medical; Visit Provider Physician Assistant
DX: M47.10 Other spondylosis with myelopathy, site unspecified (principal)
CPT/HCPCS: 99213

== ENCOUNTER → 2023-08-13 14:29 | Outpatient (BNVA) | payer MEDICARE, SELFPAY | PROVIDERS: PCP Physician Assistant Medical; Visit Provider Physician Assistant | DX: M47.10 Other spondylosis with myelopathy, site unspecified (principal) | CPT/HCPCS: 99212 ==

== ENCOUNTER 2023-08-20 06:08 | Inpatient (IN) | payer MEDICARE, SELFPAY ==
[2023-08-15 14:19] VITALS: BMI 23.0
--- NOTE | ~2023-08-20 | FL_ITS ---
EXAMINATION: XR FLUOROSCOPY WITH IMAGES CLINICAL INFORMATION: T11-T12 Trans-Kambin lumbar interbody fusion. COMPARISON: None available. TECHNIQUE: Fluoroscopy Supervised By: Dr. Christopher Faustin. Fluoroscopy Time: 1.9 minutes. Cumulative Dose: 62.6 mGy. DAP: 10.19207 Gycm2. Images: 13. FINDINGS: Fluoroscopy guidance provided T11-T12 interbody fusion. There are bilateral posterior rods and transpedicular screws and interbody fusion hardware at T11-T12. FL/FL guidance in OR IMPRESSION: Fluoroscopic guidance for T11-T12 intervertebral body fusion.
[2023-08-20 07:18] VITALS: BP 149/61; PULSE 63; RESP 18; TEMP 37; O2SAT 97
--- NOTE | 2023-08-20 07:23 | MHC.SHP ---
Pre-Procedural Eval Section A Date of Service: 08/21/23 Section B Chief Complaint: s/p T11-T12 transkambin with possible expansion Allergies: Allergies Allergy/AdvReac Type Severity Reaction Status Date / Time itraconazole [From Sporanox] Allergy Intermediate hives Verified 08/20/23 07:21 sulfamethoxazole Allergy Intermediate Thrush Verified 08/20/23 07:21 [From Bactrim] trimethoprim [From Bactrim] Allergy Intermediate thrush Verified 08/20/23 07:21 Review of Systems Sugical H&P ROS: Negative: Constitution, Cardiovascular, Respiratory, Neurological, Psychiatric, Hem-Onc, Allergic/Immunologic, Gastrointestinal, Genitourinary, Musculoskeletal, Integumentary, Endocrine and Eyes/Ears/Nose/Throat Exam Surgical H&P Exam: Not Evaluated: HEENT, Not Evaluated: Heart, Not Evaluated: Lungs, Not Evaluated: Extremities, Not Evaluated: Abdomen, Not Evaluated: Skin and Not Evaluated: Neurological Plan Diagnosis/Plan: Unchanged I have reviewed the history and physical and performed a pertinent physical examination on my patient. No changes have occurred unless specified. plan remains the same, T11-12 transkambin left-sided with posterior instrumentation Time Spent With Patient Time: Total time managing care of this patient today __10__ minutes.
--- NOTE | 2023-08-20 08:00 | HO.NEURO.PN ---
Neurosurgery Operative Note Date of Service: 08/20/23 Narrative: Neurosurgery H/P: HPI: This is an 82-year-old female who presented to the office a few weeks back with rapidly progressing numbness of her legs with primarily left-sided weakness. She had been diagnosed by Dr. Ventura with spinal cord compression at T11-12 seen on lumbar MRI. When we saw her she was barely able to stand up out of a chair and was starting to lose function of her legs and to some degree her bladder. We ordered new imaging in terms of a thoracic CT and a dedicated thoracic MRI, confirmed spinal cord compression at the T11-12 area and booked her for surgery with an extensive interbody fusion as well as posterior pedicle screws and decompression of the affected T11-12 area. We had her tentatively on the schedule for surgery today, but due to unforeseen circumstances with neuro monitor were unable to operate. The patient over the last week has been experiencing increased weakness and increased bladder dysfunction. We have coordinated with neuro monitoring to be able to do the surgery tomorrow, but we do not feel comfortable sending her home in light of her fall risk with her weakness and her rapidly progressing neurological deficits. We are going to admit her to the hospital in anticipation of surgery tomorrow, she will be NPO, we will start her on IV steroids to help with some of the swelling in her spinal cord. 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 She has been on long-term prednisone, hydroxychloroquine and methotrexate for this. History of osteoporosis, hypertension, high cholesterol, hysterectomy, hernia repair, breast cyst removal, carpal tunnel surgery in her left hand twice Social hx: She does not smoke or use any significant alcohol Medications: Amlodipine, atorvastatin, folic acid, gabapentin, hydrochlorothiazide, hydroxychloroquine, ibandronate, lisinopril, methotrexate, metoprolol, omeprazole, prednisone Allergies: Bactrim, Itraconazole Physical exam: She is able to stand up of the wheelchair with assistance but is very slow and unsteady to take more than a step. Cranial nerves are grossly intact. Her upper extremity strength is limited by a torn rotator cuff on her right arm so there is some limited strength there, left upper extremity strength is normal. Lower extremity strength testing reveals she has 2/5 strength in the left iliopsoas, 2/5 strength in the left quadriceps, 4/5 strength in left tibialis and 5/5 left gastrocnemis. She has 4/5 strength in the right iliopsoas. The right quadriceps and distal right lower extremity are full strength. There is sensory loss to the T12 dermatome. She has hyperreflexia in the lower extremities. Upper extremities have 3+ reflexes, no Rebolledo's sign. Imaging review: The patient has MRI done at [facility] last week showing severe spinal cord compression at T11-12 with degenerative spondylolisthesis and what looks like calcifications along the edges of the facets all causing severe central canal stenosis. Assessment/plan: This is an 82-year-old with rapidly progressing paraparesis and bladder dysfunction in the setting of severe spinal cord compression at T11-12 with cord signal change and edema. The patient was supposed to have surgery today, but due to unforeseen circumstances with neural monitoring we were unable to operate on her. Because of her rapidly progressing deficits, we do not feel comfortable sending her home as she has a significant fall risk, and we would like to start her on IV steroids to help with some of the spinal cord swelling in anticipation of surgery tomorrow. Dr. Faustin has seen the patient at bedside in the holding area with me and agrees with the plan as outlined above.
--- NOTE | 2023-08-20 08:55 | PC.NURSE ---
IV inserted by Marisol Peña RN
--- NOTE | 2023-08-20 09:22 | PC.NURSE ---
Read physician's documentation regarding postponement of today's procedure. Patient transported to floor. report given to keiko waldron.
[2023-08-20 09:48] VITALS: BMI 24.8
[2023-08-20 09:59] LABS: Glucose, Whole Blood 102 mg/dL (60-115)
[2023-08-20] MEDS: dexAMETHasone sod phosphate 4 MG/ML VIAL 2 MG IVPUSH ×2 (10:20→20:53)
[2023-08-20] MEDS: Famotidine 20 MG TABLET PO ×2 (10:20→20:53)
--- NOTE | 2023-08-20 10:28 | PHA.MEDREC ---
Pharmacy Consult ? Medication Reconciliation Pharmacy has completed the medication reconciliation. Spoke to patient and confirmed medication list.
[2023-08-20 10:59] VITALS: BP 160/70; PULSE 61; RESP 18; TEMP 36.6; O2SAT 98
[2023-08-20] MEDS: Hydroxychloroquine Sulfate 200 MG TABLET 300 MG PO (11:48)
[2023-08-20] MEDS: lisinopriL 40 MG TABLET PO (11:48)
[2023-08-20] MEDS: Folic Acid 1 MG TABLET PO (11:49)
[2023-08-20] MEDS: hydroCHLOROthiazide 25 MG TABLET PO (11:49)
[2023-08-20] MEDS: Multivitamin TABLET 1 TAB PO (11:50)
[2023-08-20] MEDS: Gabapentin 100 MG CAPSULE PO ×2 (11:50→20:53)
[2023-08-20] MEDS: Atorvastatin Calcium 40 MG TABLET PO (11:50)
[2023-08-20 15:12] VITALS: BP 134/66; PULSE 64; RESP 17; TEMP 36.2; O2SAT 97
[2023-08-20 19:25] VITALS: BP 139/65; PULSE 71; RESP 19; TEMP 36.6; O2SAT 97
[2023-08-20] MEDS: Calcium + Vitamin D 250 MG TABLET PO (21:05)
[2023-08-20] MEDS: Fluticasone Propionate Nasal 16 GM SPRAY 1 SPRAY NOSTRIL-B (21:07)
[2023-08-20 21:44] LABS: Glucose, Whole Blood 129 mg/dL (60-115)
[2023-08-20] MEDS: Melatonin 3 MG TABLET 2 MG PO (22:11)
[2023-08-21] VITALS (15 sets, daily range): BP systolic 102–160; BP diastolic 50–76; PULSE 55–73; RESP 14–20; TEMP 36–36.7; O2SAT 93–100
[2023-08-21] MEDS: 0.9 % Sodium Chloride 1,000 ML 75 ML IVCONT ×2 (00:50→17:31)
[2023-08-21 07:34] LABS: Glucose, Whole Blood 115 mg/dL (60-115)
[2023-08-21] MEDS: dexAMETHasone sod phosphate 4 MG/ML VIAL 2 MG IVPUSH (08:55)
[2023-08-21] MEDS: Omeprazole 20 MG CAPSULE.DR PO (08:56)
[2023-08-21] MEDS: amLODIPine Besylate 5 MG TABLET PO (08:56)
[2023-08-21] MEDS: Metoprolol Succinate ER 12.5 MG HALFTAB.ER.24H PO (08:56)
[2023-08-21] MEDS: Fluticasone Propionate Nasal 16 GM SPRAY 1 SPRAY NOSTRIL-B (08:56)
--- NOTE | 2023-08-21 09:35 | P.CONAN_ITS ---
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 (Acute) Raynauds disease (Acute) Limited scleroderma (Acute) Osteopenia (Acute) Past Medical History Medical History Constipation Cataract Vitamin D deficiency Anxiety Varicose veins of bilateral lower extremities with other complications Carpal tunnel syndrome Glaucoma care 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 DJD (degenerative joint disease) Undifferentiated connective tissue disease Atrophic vulva Allergic rhinitis Essential hypertension Hypercholesteremia Colonic polyp Family History Family History Mother Hypertension Diabetes Malignant lymphoma Father Myocardial infarct Hypertension Brother Hypertension Family history of problems with anesthesia: No Surgical History Surgical History H/O hernia repair H/O total hysterectomy History of colonoscopy History of carpal tunnel surgery History of Problems with Anesthesia: No Social History Social History Household Members: None Housing: House Are you a primary field care coordinator to a significant other at home: No Do you presently have visiting nurse or other home services: No Alcohol intake: never Patient Tobacco Use Status: Never used Tobacco Use of substances other than those prescribed or required for medical reasons: No Currently Displaying Signs/Symptoms of Drug Intoxication Withdrawal: No Any prior treatment program specific to substance use: No Have you been hit, kicked, punched, or otherwise hurt by someone within the past year? If so, by whom?: No Do you feel safe in your current relationship?: No Current Relationship Is there a partner from a previous relationship who is making you feel unsafe now?: No Are you made to feel afraid or neglected: No Are you DNR?: Yes Advance Directives Information Provided: No (as above noted) Advance Directives on File: No Do you have thoughts of harming others: None Do you have a plan to hurt others: No Plan Recently lost weight without trying: No Eating poorly because of decreased appetite: No Nutrition Risks: No Nutritional Risk Patient : No : No Poor oral hygiene: No Meds Allergies Allergy/AdvReac Type Severity Reaction Status Date / Time itraconazole [From Sporanox] Allergy Intermediate hives Verified 08/20/23 07:21 sulfamethoxazole Allergy Intermediate Thrush Verified 08/20/23 07:21 [From Bactrim] trimethoprim [From Bactrim] Allergy Intermediate thrush Verified 08/20/23 07:21 Active Medications: Current Medications Acetaminophen (Acetaminophen 325 Mg Tablet) 650 mg PO Q12H PRN PRN Reason: Pain Amlodipine Besylate (Amlodipine Besylate 5 Mg Tablet) 5 mg PO DAILY [facility]; Protocol Last Admin: 08/21/23 08:56 Dose: 5 mg Atorvastatin Calcium (Atorvastatin Calcium 40 Mg Tablet) 40 mg PO DAILY [facility] Last Admin: 08/21/23 08:45 Dose: Not Given Calcium Carbonate/Cholecalciferol (Calcium + Vitamin D 250 Mg Tablet) 250 mg PO BID [facility] Last Admin: 08/21/23 08:49 Dose: Not Given Dexamethasone Sodium Phosphate (Dexamethasone Sod Phosphate 4 Mg/Ml Vial) 2 mg IVPUSH BID [facility] Last Admin: 08/21/23 08:55 Dose: 2 mg Famotidine (Famotidine 20 Mg Tablet) 20 mg PO BID [facility] Last Admin: 08/21/23 08:56 Dose: Not Given Fluticasone Propionate (Fluticasone Propionate Nasal 16 Gm [place]) 1 spray NOSTRIL-B BID [facility] Last Admin: 08/21/23 08:56 Dose: 1 spray Folic Acid (Folic Acid 1 Mg Tablet) 1 mg PO DAILY [facility] Last Admin: 08/21/23 08:49 Dose: Not Given Gabapentin (Gabapentin 100 Mg Capsule) 100 mg PO BID [facility] Last Admin: 08/21/23 08:49 Dose: Not Given Gabapentin (Gabapentin 300 Mg Capsule) 300 mg PO PREOP ONE Stop: 08/21/23 09:46 Hydrochlorothiazide (Hydrochlorothiazide 25 Mg Tablet) 25 mg PO DAILY [facility]; Protocol Last Admin: 08/21/23 08:49 Dose: Not Given Hydroxychloroquine Sulfate (Hydroxychloroquine Sulfate 200 Mg Tablet) 300 mg PO DAILY [facility] Last Admin: 08/21/23 08:50 Dose: Not Given Sodium Chloride (Ns) 1,000 mls @ 75 mls/hr IVCONT .[id number] [facility] Last Admin: 08/21/23 00:50 Dose: 75 mls/hr Cefazolin Sodium/Dextrose (Ancef) 2 gm in 50 mls @ 100 mls/hr IV PREOP ONE Stop: 08/21/23 10:29 Acetaminophen (Ofirmev) 1,000 mg in 100 mls @ 400 mls/hr IV PREOP ONE Stop: 08/21/23 09:59 Lisinopril (Lisinopril 40 Mg Tablet) 40 mg PO DAILY [facility]; Protocol Last Admin: 08/21/23 08:50 Dose: Not Given Methocarbamol (Methocarbamol 750 Mg Tablet) 750 mg PO PREOP ONE Stop: 08/21/23 09:46 Metoprolol Succinate (Metoprolol Succinate Er 12.5 Mg Halftab.Er.24h) 12.5 mg PO DAILY [facility]; Protocol Last Admin: 08/21/23 08:56 Dose: 12.5 mg Multivitamins/Vitamin C (Multivitamin Tablet) 1 tab PO DAILY [facility] Last Admin: 08/21/23 08:50 Dose: Not Given Omeprazole (Omeprazole 20 Mg Capsule.Dr) 20 mg PO DAILY@0630 [facility] Last Admin: 08/21/23 08:56 Dose: 20 mg Ondansetron HCl (Ondansetron Hcl 4 Mg/2 Ml Vial) 4 mg IVPUSH Q6H PRN PRN Reason: Nausea and Vomiting Home Medications Medication Instructions Recorded Confirmed Last Taken Type acetaminophen 650 mg 650 mg PO Q12H PRN Pain 08/20/22 08/15/23 Unknown History tablet,extended release (Tylenol Arthritis Pain) atorvastatin 40 mg tablet 40 mg PO DAILY 08/20/22 08/20/23 08/19/23 History calcium carbonate 600 mg-vitamin 1 tab PO BID 08/20/22 08/20/23 08/19/23 History D3 10 mcg (400 unit) tablet (Calcium 600 + D(3)) fluticasone propionate 50 1 spray intranasal BID 08/20/22 08/20/23 08/19/23 History mcg/actuation nasal spray,suspension (Allergy Relief (fluticasone)) folic acid 1 mg tablet 1 mg PO DAILY 08/20/22 08/20/23 08/19/23 History gabapentin 100 mg capsule 100 mg PO BID 08/20/22 08/20/23 08/19/23 History hydrochlorothiazide 25 mg tablet 25 mg PO DAILY 08/20/22 08/20/23 08/19/23 History ibandronate 150 mg tablet 150 mg PO .monthly 08/20/22 08/15/23 Unknown History lisinopril 40 mg tablet 40 mg PO DAILY 08/20/22 08/20/23 08/19/23 History omeprazole 20 mg capsule,delayed 20 mg PO DAILY 08/20/22 08/15/23 08/20/23 History release vitamin B complex (B 1 tab PO DAILY 08/20/22 08/20/23 08/19/23 History Complex-Vitamin B12 tablet) metoprolol succinate 25 mg 12.5 mg PO DAILY 12/31/22 08/15/23 08/20/23 History tablet,extended release 24 hr hydroxychloroquine 200 mg tablet 300 mg PO DAILY 01/24/23 08/20/23 08/19/23 History (Plaquenil) amlodipine 5 mg tablet 5 mg PO DAILY 04/15/23 08/15/23 08/20/23 History omega 5-yhp-vbp-fish oil 1,000 mg 1 cap PO DAILY 07/01/23 08/20/23 08/19/23 History (120 mg-180 mg) capsule (Fish Oil) methotrexate sodium 2.5 mg tablet 12.5 mg PO QWEEK 07/31/23 08/20/23 Unknown History prednisone 1 mg tablet 8 mg PO QAM 08/15/23 08/15/23 08/20/23 History Exam Height,Weight and Vital Signs: Height 5 ft Weight 57.5 kg Last Vital Signs Temp 96.8 F 08/21/23 07:55 Pulse 58 08/21/23 07:55 Resp 18 08/21/23 07:55 BP 128/60 08/21/23 07:55 Pulse Ox 97 08/21/23 07:55 O2 Del Method Room Air 08/21/23 07:55 Pertinent Lab Results Pertinent Lab Results: Laboratory Tests 08/20/23 08/20/23 08/21/23 09:53 21:41 07:14 POC Glucose 102 129 H 115 Airway Mallampati Class: II TM Dist: >3cm Neck ROM: Full Loose/Missing/Broken Teeth: No Heart: [id number] Lungs: cta b/l Assessment and Plan Assessment Anesthesia Assessment: Anesthesia Plan Discussed and Chart Reviewed Final Anesthetic Review Family History of Problems with Anesthesia: No History of Problems with Anesthesia: No NPO: Yes ASA Class: III Final Preanesthetic Review: No Changes in Pt Med Stat, Meds/Allgs Chart Reviewed, Consent Obtained/Reviewed and Anes Risks/Benef Reviewed Patient Risk: Intermediate Procedure Risk: Intermediate Assessment/Block/Sedation in SS: Assess/Block/Sedation-SS Anesthetic Plan Anesthetic Plan: GA and Agree w/ Assess. and Plan Disposition: Standard PACU
[2023-08-21 09:58] LABS: Glucose, Whole Blood 89 mg/dL (60-115)
--- NOTE | 2023-08-21 10:40 | PC.NURSE ---
Per Morro Singleton, do not give preop methocarbamol, gabapentin, or acetaminophen.
--- NOTE | 2023-08-21 14:56 | P.OP_ITS ---
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; T11-T12 anterolisthesis; para paresis Postprocedure diagnosis: 1) same as above Procedure: 1) T11-T12 oblique lateral thoracic interbody fusion with discectomy, preparation of the endplates and placement of a titanium bullet cage packed with allograft, anterior to the transverse process in modified prone position, with intraoperative biplanar fluoroscopy imaging and electrophysiological monitoring 2) T11-T12 bilateral laminotomy with removal of T11-T12 intraspinal extradural mass with use of microscope 3) T11-T12 posterior minimally invasive pedicle screw placement and posterior lateral instrumentation and fusion with intraoperative biplanar fluoroscopic imaging and electrophysiological monitoring 3 [] injection of 0.75 Marcaine in paravertebral tissue for postop management Consent Informed Consent was obtained for this operation. I have explained the nature, purpose and benefits of the operation. I have discussed the risks and benefit of the operation including possible complications or adverse events with patient/family. Alternative(s) were discussed with the patient with their relative benefits and risks as well as the consequences of not accepting the operation were included in obtaining consent. Surgeon: ADILENE DURAN MD, PHD Procedure Assisted By: PRECIOUS Son Description of Procedure: This is a complex surgery on the lumbar spine and an economist research assistant as needed for safety of the surgery for setup of instrumentation, retraction and closing. History: this 82-year-old female presented with progressive paraparesis. Imaging shows a large intraspinal, extradural mass compressing the spinal cord and in associated T11-T12 anterolisthesis. The patient was offered an oblique thoracic lateral interbody fusion followed by removal of in intraspinal extra dural mass and a posterior lateral instrumented fusion T11-T12. The procedure and complications were explained and the patient was consented. Procedure: The patient was brought to the operating room and endotracheally intubated. The patient was positioned on the Sonido spine table in a modified prone position for ease of access from the right side.. 2C arms were installed for fluoroscopy. Prepping and draping was done followed by timeout. The landmarks, including spinal processes, transverse processes, disc space, endplates and pedicles are identified and marked. The following steps are taken for each specified level: T11-T12 level: Cage size 9 mm high and 27mm long titanium . The patient was turned using the rotation of the surgical table so a near direct anterior lateral approach to the thoracic spine could be achieved. A small incision was then made between the 11 and 12 rib and then using biplanar fluoro scopy visualization, under electrophysiological monitoring and stimulation, we introduced an electrophysiological probe through the retro thoracic space into the desired disc anterior to the transverse process and then passed it into the disc space after finding a silent window. The sleeve was retained and the probe was removed, then the K wire was passed sequentially into the disc space. A dilating tube was then passed along the same route. Following this, a working channel, a working channel was then passed sequentially into the disc space. The working channel was manually held in position while a series of disc cleaning tools were passed through the channel to remove the affected disc under clear and direct biplanar fluoroscopic visualization, decompress the nerve roots and equal corticated vertebral endplates at this segment. Arthrodesis of the intervertebral space via a retrothoracic exposure was achieved through Kambin's [place]by and lateral extraforaminal space. Allograft was added into the anterior disc space. The working channel was then removed. A titanium interbody cage tightly packed with allograft was then inserted into the midportion of the intervertebral disc space over a K-wire under biplanar fluoroscopic visualization and intraoperative neuro monitoring. The inter pedicular and intradiscal space was significantly enlarged and disc height was restored to worked normal anatomy there for releasing pressure on the nerve roots visual largely the spinal canal and lateral recess as well as foramen were bilateral decompressed and all bones were confined to the borders of the disc space . Then attention was turned to the removal of the intraspinal extradural mass. A 1 inch midline incision was made followed by release of the paravertebral muscles to expose the T 11 T12 laminae. a retractor was inserted. The interspinous ligament between 1 T11 and T12 was removed followed by partial removal of the the 11 and T12 spinous processi. A bilateral T11 and T12 laminotomy was done. The flavum ligament was opened inferior from the mass and the normal dura was exposed. immediately superiorly from the dura an indentation started due to a compressive white colored mass. I extended the laminotomy until normal dura was seen superiorly from the mass. Then I peeled it away until a small layer of tissue was still present compressing the dura. The mass was firmly attached to the dura. Carefully, I created a plane between the dura and the mass after which with piecemeal resection I was able to remove the majority of the mass to decompress the spinal cord. Unfortunately, a small durotomy occurred on the left side, which was treated with DuraGen and Duraseal. Several pieces of tumor were sent for pathology. The final part of the procedure was insertion of the pedicle screws.The following steps are then taken for each specified level: T11-T12 levels: Four screws with a diameter of 6.5 x 40 mm. The posterolateral fusion is initiated after the patient is rotated to a true prone position. The entry point to the pedicle is identified in the AP and lateral views and then the skin incision is injected with local anesthetic. We entered the pedicle with the pediguard tap after which a K-wire was introduced into the vertebral body. Additionally, I used a small periosteal decorticator along the screws to refresh the surface of the bone and facet and I put some amount of allograft for additional stability for the posterolateral fusion. Over the K-wire we insert pedicle screws bilaterally. After the screws were placed, we put the senait in place and under fluoroscopic imaging, we locked the senait in place and removed the screw tops. in the midline and paramedian incisions were closed with a in 0 Vicryl for the fascia and subcutaneous and 3-0 nylon running stitch for the skin. The incision on the lateral part of the thorax was closed with 3-0 Vicryl and Steri-Strips. . All sponge and needle counts were correct. The patient was extubated and transported in a stable condition to the recovery room. 2-0 Vicryl This procedure was done with the aid of a physician economist research assistant as a qualified resident was not available. Anesthesia: General Estimated Blood Loss (ml): 15 mL Specimen: None Duration of Surgery: 3 hours Postoperative Plan: Admit to inpatient
--- NOTE | 2023-08-21 15:12 | HO.NEUROPN_ITS ---
Neurosurgery Operative Note Date of Service: 08/21/23 Narrative: POD: 0 Procedure: T11-12 Transkambin with left side approach laminotomy and intraspinus extradural tumor resection Basilia is a pleasant 82-year-old female who had a T11-12 transkabin fusion completed today with posterior pedicle screw fixation and extradural tumor section. She tolerated the procedure well. She had an incidental durotomy while resecting the tumor found at T11-12. She was already slated to remain in the hospital today post fusion, but will be transferred to telemetry instead due to her age, incidental durotomy and concurrent CREST syndrome. She has a sloan in, diet orders changed to regular. Afebrile, vital signs stable. Patient is alert and oriented. No new neurological deficits noticed postoperatively. Patient has full movement of LEs seen pre-operatively. Plan: At this time we believe she requires additional monitoring via telemetry rather than simply returning to 3-S tonight. This was discussed with attending neurosurgeon and anesthesiologist who are in agreement with this plan. Morro Faustin MD,PhD [facility]
[2023-08-21] MEDS: fentaNYL citrate/PF 100 MCG/2 ML VIAL 50 MCG IVPUSH ×2 (15:25→16:15)
[2023-08-21 17:12] LABS: Glucose, Whole Blood 90 mg/dL (60-115)
[2023-08-21] MEDS: HYDROmorphone HCl 1 MG/ML SYRINGE IVPUSH ×3 (17:28→23:40)
[2023-08-21] MEDS: ceFAZolin Sodium/Dextrose,Iso 2 GM/50 ML PIGGYBACK IV ×2 (17:41→23:36)
--- NOTE | 2023-08-21 18:15 | PC.NURSE ---
Patient arrived to unit in bed via PACU approximately 1700. Oriented to room, call goins and staff. A&Ox4 speech clear. Pt reports 10/10 pain on arrival to back laying on left side in bed. Dressings to back larger dressing almost nearly saturated with sanguineous drainage, smaller dressing with small amount staining. Pt assisted to lay on back repositioned for comfort. Denies headache, dizziness or vision changes pupils PERRL 2B. KERN to command 4/5, except LLE 3/5. Pt reports numbness/tingling to bilat legs ongoing baseline although sensation weaker to left lower. Strong plantar/dorsi flexion to right, left weak. LSCTA denies SOB or CP arrives on 2L oxygen via nasal cannula satting high 90's. NSR on tele. BS+X4 abdomen soft non-tender denies nausea/vomiting. Hyde cath in place with cath secure with clear yellow urine. Medicated with prn Dilaudid 1mg IV push for pain on arrival refusing oral meds at this time d/t pain. Pt offered food unable to eat d/t pain at this time. IV fluids infusing per order, IV cefazolin given per order. Compression boots in place. IS at bedside. Bed in lowest locked position alarm for safety call goins within reach. Will continue to monitor and report changes
[2023-08-21] MEDS: ondansetron HCL 4 MG/2 ML VIAL IVPUSH (19:42)
[2023-08-21 20:06] LABS: Glucose, Whole Blood 112 mg/dL (60-115)
--- NOTE | 2023-08-21 21:39 | PC.NURSE ---
At approx 2130 patients dressings to the mid back changed. Large dressing saturated in serous sangeous fluid, small dressing with minimal drainage. Cleansed with NS, patted dry. Sutures in place to the 3 large incisions, serous sangeous fluids leaking from sutures. . Dry sterile gauze with tegaderm placed. Pt laying flat per orders. Hyde cath in place. CyU draining. PRN Dilaudid as ordered. Nausea with vomiting x1. PRN Zofran with effect.
[2023-08-21] MEDS: Acetaminophen 325 MG TABLET 975 MG PO (23:38)
[2023-08-22] VITALS (7 sets, daily range): BP systolic 119–139; BP diastolic 52–88; PULSE 57–64; RESP 15–24; TEMP 36.4–37.2; O2SAT 92–98
[2023-08-22] MEDS: HYDROmorphone HCl 1 MG/ML SYRINGE IVPUSH ×4 (03:36→20:19)
[2023-08-22] MEDS: ceFAZolin Sodium/Dextrose,Iso 2 GM/50 ML PIGGYBACK IV (03:36)
[2023-08-22] MEDS: 0.9 % Sodium Chloride 1,000 ML 75 ML IVCONT ×2 (03:40→17:38)
[2023-08-22] MEDS: Acetaminophen 325 MG TABLET 975 MG PO ×3 (05:41→17:36)
[2023-08-22] MEDS: Omeprazole 20 MG CAPSULE.DR PO (05:41)
[2023-08-22] MEDS: oxyCODONE HCl Immed Release 5 MG TABLET PO (05:46)
[2023-08-22 08:01] LABS: Glucose, Whole Blood 82 mg/dL (60-115)
[2023-08-22] MEDS: Fluticasone Propionate Nasal 16 GM SPRAY 1 SPRAY NOSTRIL-B ×2 (08:48→20:21)
[2023-08-22] MEDS: Atorvastatin Calcium 40 MG TABLET PO (08:50)
[2023-08-22] MEDS: amLODIPine Besylate 5 MG TABLET PO (08:50)
[2023-08-22] MEDS: Metoprolol Succinate ER 12.5 MG HALFTAB.ER.24H PO (08:50)
[2023-08-22] MEDS: Docusate Sodium 100 MG CAPSULE PO ×2 (08:50→20:20)
[2023-08-22] MEDS: Calcium + Vitamin D 250 MG TABLET PO ×2 (08:50→20:20)
[2023-08-22] MEDS: predniSONE 1 MG TABLET 4 MG PO (08:50)
[2023-08-22] MEDS: Gabapentin 300 MG CAPSULE PO ×3 (08:50→20:20)
[2023-08-22] MEDS: Hydroxychloroquine Sulfate 200 MG TABLET 300 MG PO (08:51)
[2023-08-22] MEDS: Famotidine 20 MG TABLET PO ×2 (08:51→20:20)
[2023-08-22] MEDS: Folic Acid 1 MG TABLET PO (08:52)
[2023-08-22] MEDS: lisinopriL 40 MG TABLET PO (08:52)
--- NOTE | 2023-08-22 09:43 | MHC.CM.PN ---
IMM 08/22/23 Pt lives alone and does not have home healths services, CM asked if she wanted a referral for senior services (to [facility] in [place]), she declined. Her nephew lives next door, and helps her with whatever she needs. She said that she thinks she will go to outpt PT when at home, she has been there before to [facility] in [place]. Nephew will transport her home upon DC. She completed a HCP here, naming her brother, awaiting his phone # to complete form. CM will follow and assist with DC planning.
--- NOTE | 2023-08-22 09:51 | HO.NEURO.PN ---
Neurosurgery Operative Note Date of Service: 08/22/23 Narrative: Postop day 1. Status post T11-12 interbody fusion with pedicle screws and decompression of T11-12 calcified ligament, incidental durotomy Patient reports significant back pain, her legs still feel numb but otherwise no significant changes. She has not been out of bed, she has been on flat bed rest overnight. She has not eaten, she did try some liquids. She vomited this morning once. No abdominal pain otherwise. She has a Hyde catheter in place. Afebrile, vital signs stable Physical exam: The patient is lying in bed, no acute distress, she has some pain related to movement, strength in the right leg appears to be full, still has some mild strength loss in the tibialis, quadriceps and iliopsoas on the left, I would rate these as 4-5 which is a significant improvement compared to her preop. Back dressing is clean and dry with no signs of CSF leak. Impression: Postop day 1. Status post T11-12 interbody fusion with pedicle screws and decompression of T11-12 calcified ligament, incidental durotomy. She has back pain, her legs are still numb however on exam she appears to be stronger. She has no headache in her wound is dry. We will let her sit up and get out of bed with physical therapy. If she develops headache or any leakage from her wound we will put her flat in bed again. We will DC her Hyde catheter. We will transfer her to the floor she has been hemodynamically stable. Continue prednisone 4 mg p.o. daily and we can start to decrease this over the next few days. Patient seen at bedside with Dr. Faustin who agrees with the plan as outlined above.
--- NOTE | 2023-08-22 11:48 | HO.POSTANES ---
Post Anesthesia Evaluation Post Anesthesia Evaluation Date of Service: 08/22/23 Vital Signs: Vital Signs Temp Pulse Resp BP Pulse Ox O2 Del Method O2 Flow Rate 08/22/23 11:43 97.5 F 64 20 119/70 98 Nasal Cannula 3 08/22/23 07:51 98.8 F 60 18 122/52 L 98 Nasal Cannula 2 08/22/23 03:46 96 Nasal Cannula 1 08/22/23 03:31 98.2 F 57 18 139/62 98 Nasal Cannula 1 Anesthesia: General Endotracheal-GETA Mental Status: Awake Pain Control: Satisfactory (Difficult to control) Nausea/Vomiting: Mild Hydration: Adequate Anesthesia-Related Issues: No Anes. Related Issues
[2023-08-22 11:53] LABS: Glucose, Whole Blood 92 mg/dL (60-115)
[2023-08-22 15:57] LABS: Glucose, Whole Blood 95 mg/dL (60-115)
[2023-08-22 20:29] LABS: Glucose, Whole Blood 122 mg/dL (60-115)
[2023-08-23] MEDS: Acetaminophen 325 MG TABLET 975 MG PO ×3 (01:18→14:44)
[2023-08-23] MEDS: HYDROmorphone HCl 1 MG/ML SYRINGE IVPUSH ×2 (01:33→08:37)
[2023-08-23 04:00] VITALS: BP 115/58; PULSE 62; RESP 17; TEMP 37.2; O2SAT 93
[2023-08-23] MEDS: Omeprazole 20 MG CAPSULE.DR PO (05:25)
[2023-08-23] MEDS: 0.9 % Sodium Chloride 1,000 ML 75 ML IVCONT (05:27)
[2023-08-23 07:50] VITALS: BP 163/89; PULSE 92; RESP 60; TEMP 36.4; O2SAT 96
[2023-08-23 07:58] LABS: Glucose, Whole Blood 83 mg/dL (60-115)
[2023-08-23] MEDS: ondansetron HCL 4 MG/2 ML VIAL IVPUSH (08:36)
[2023-08-23] MEDS: Folic Acid 1 MG TABLET PO (08:37)
[2023-08-23] MEDS: Calcium + Vitamin D 250 MG TABLET PO (08:37)
[2023-08-23] MEDS: amLODIPine Besylate 5 MG TABLET PO (08:37)
[2023-08-23] MEDS: Famotidine 20 MG TABLET PO (08:38)
[2023-08-23] MEDS: Atorvastatin Calcium 40 MG TABLET PO (08:38)
[2023-08-23] MEDS: Metoprolol Succinate ER 12.5 MG HALFTAB.ER.24H PO (08:38)
[2023-08-23] MEDS: Fluticasone Propionate Nasal 16 GM SPRAY 1 SPRAY NOSTRIL-B (08:38)
[2023-08-23] MEDS: Gabapentin 300 MG CAPSULE PO ×2 (08:38→14:44)
[2023-08-23] MEDS: lisinopriL 40 MG TABLET PO (08:38)
[2023-08-23] MEDS: Hydroxychloroquine Sulfate 200 MG TABLET 300 MG PO (08:38)
[2023-08-23] MEDS: predniSONE 1 MG TABLET 4 MG PO (08:38)
[2023-08-23] MEDS: Docusate Sodium 100 MG CAPSULE PO (08:38)
--- NOTE | 2023-08-23 09:01 | HO.NEURO.PN ---
Neurosurgery Operative Note Date of Service: 08/23/23 Narrative: POD: 2 Procedure: Status post T11-12 interbody fusion with pedicle screws and decompression of T11-12 calcified ligament, incidental durotomy Basilia was seen this morning sitting upright in bed on telemetry 4. Patient reports continued moderate back pain, her legs still feel intermittently numb but otherwise no other significant changes. She has not been out of bed. She has been eating and tolerating p.o. fluids. Her Hyde catheter has remained in. Afebrile, vital signs stable Physical exam: The patient is lying in bed, no acute distress. She has full / equal strength of bilateral lower extremities, which is significant improvement from our previous exam with her. Some sensational deficits continue to be elicited lower extremities. Back dressing is clean and dry with no signs of CSF leak. Impression / Plan: Postop day 2. Status post T11-12 interbody fusion with pedicle screws and decompression of T11-12 calcified ligament, incidental durotomy. She has back pain, her legs are still intermittently numb however on exam she appears to be stronger, most notably her left lower extremity appeared to be as strong as her right today. She has no headache or lightheadedness and her wound is dry. She will be seen by physical therapy today, and her head of bed restrictions are removed. All of her IV medications were DC'd as she is tolerating p.o. fine. Her Hyde catheter is also been discontinued, if she is unable to ambulate to the bathroom with the assistance of her nurse than a bedside commode is sufficient for the time being. We would like her transferred to rehab [facility] today pending PT evaluation. I will fill out a paper prescription for oxycodone 5 mg and provided to her nurse to be given to her upon transfer. The attending neurosurgeon Dr. Faustin understands and agrees to this plan. Morro Faustin MD,PhD [facility]
--- NOTE | 2023-08-23 09:20 | PM.DS ---
DS: Providers Provider Date of Service: 08/23/23 Date of admission: 08/20/23 06:08 Primary care physician: Tristian Cerda MD DS: Summary Time Attestation Discharge coordination time: Less than 30 minutes Quality: Safe Use of Opioids Does Pt have an Active Cancer Diagnosis on the Problem List?: No Quality: Stroke Does the patient have a stroke diagnosis?: No Physical Exam Vital Signs: Vital Signs: Last Vital Signs Temp 97.5 F 08/23/23 07:50 Pulse 92 08/23/23 07:50 Resp 60 H 08/23/23 07:50 BP 163/89 H 08/23/23 07:50 Pulse Ox 96 08/23/23 07:50 O2 Del Method Nasal Cannula 08/23/23 07:50 O2 Flow Rate 2 08/23/23 07:50 BMI result Body Mass Index 24.8 DS: Data Data Completed and Pending Pending studies at discharge: Pending at discharge 08/21/23 13:17 Surgical [PTH] Routine Labs on day of discharge: Laboratory Results - last 24 hr 08/22/23 08/22/23 08/22/23 11:48 15:48 20:23 POC Glucose 92 95 122 H 08/23/23 07:54 POC Glucose 83 Discharge Plan Discharge Anticipated Discharge Date/Time: 08/23/23 09:20 Patient Disposition: Xfer Inpatient Rehab Fac Discharge Diagnosis: s/p T11-12 fusion Referrals: Tristian Cerda MD [Primary Care Provider] - 1 Week Discharge Medications: Continued vitamin B complex [B Complex-Vitamin B12] Tablet 1 tab PO DAILY atorvastatin 40 mg tablet 40 mg PO DAILY calcium carbonate-vitamin D3 [Calcium 600 + D(3)] 600 mg-10 mcg (400 unit) tablet 1 tab PO BID fluticasone propionate [Allergy Relief (fluticasone)] 50 mcg/actuation spray,suspension 1 spray intranasal BID Rx Instructions: administer into each nostril folic acid 1 mg tablet 1 mg PO DAILY gabapentin 100 mg capsule 100 mg PO BID hydrochlorothiazide 25 mg tablet 25 mg PO DAILY ibandronate 150 mg tablet 150 mg PO .monthly lisinopril 40 mg tablet 40 mg PO DAILY omeprazole 20 mg capsule,delayed release(DR/EC) 20 mg PO DAILY acetaminophen [Tylenol Arthritis Pain] 650 mg tablet extended release 650 mg PO Q12H PRN (Reason: Pain) metoprolol succinate 25 mg tablet extended release 24 hr 12.5 mg PO DAILY prednisone 1 mg tablet 8 mg PO QAM amlodipine 5 mg tablet 5 mg PO DAILY Held methotrexate sodium 2.5 mg tablet 12.5 mg PO QWEEK Hold Instructions: Resume on 09/23/23. discuss at postop appt hydroxychloroquine [Plaquenil] 200 mg tablet 300 mg PO DAILY Hold Instructions: Resume on 09/23/23. discuss at postop appt omega 9-[id number]-fish oil [Fish Oil] 1,000 mg (120 mg-180 mg) capsule 1 cap PO DAILY Hold Instructions: Resume on 09/23/23. discuss at postop appt Discharge Orders: Discharge Order (Routine); Ordered 08/23/23 Ordered By: Morro Singleton Diet: Advance to usual diet Activity on Discharge: As tolerated Stand Alone Forms: Patient Portal Discharge page Activity Restrictions/Additional Instructions: After your spinal surgery we ask you to observe the following restrictions/guidelines: Activity: With lumbar fusion surgery it is normal to have days in the first couple of weeks where you have increased leg pain. This usually lasts 1-2 days and self resolves with the continuation of medication. Attempt to stay mobile and continue activity as tolerated. It is normal to feel some discomfort as you increase your activity, but that will improve with time. We ask you avoid heavy lifting or activities that cause pain. As a general rule, 8lbs is a safe limit for lifting right after surgery. Walk as much as you feel comfortable but not to exhaustion. You will feel extra tired the first few days after surgery. Stay well hydrated. It is OK to walk up and down stairs You may return to driving when you are off narcotics (such as vicodin, oxycodone, dilaudid, etc), and you are back to normal functional capacity. If you have any concerns please check with office before driving. Return to work is specific to each patient and each surgery, so please speak with your doctor/PA at first follow up. Please bring paperwork such as FMLA at that time if you need it filled out. Medications: It is recommended that you take Tylenol 500 mg every 4 hours for the 1st week postoperatively, alongside ibuprofen 600 mg every 8 hours. We will give you a short supply of narcotics after surgery (usually one weeks worth). Please use this for breakthrough pain that is refractory to the Tylenol / ibuprofen. If you need more please call the office but do not use more than prescribed. You will need to give our office 48 hours notice if you need narcotics refilled and we do not fill narcotics on weekends or evenings. If you are on a narcotic, it is a good idea to take a stool softener such as colace or senna to avoid constipation If you take blood thinner such as aspirin, Plavix, Coumadin, Effient, Eliquis etc for conditions such as Afib, DVT, Pulmonary embolus, coronary disease, stents etc please speak with your surgeon about specific details as to when you can resume these medications. You can resume NSAIDs on post op day 1 (eg: Motrin, Naproxen, etc). Follow up: Please call the office, , after surgery to arrange a 3 week follow up for wound check. Wound Care: You may remove your dressing on the first day after surgery. You may leave open to air. Please do not remove the steri strips underneath. they will fall off on their own in one week. IT IS NORMAL FOR THE WOUND TO OOZE OR BE BLOODY FOR A FEW DAYS AFTER SURGERY. IF THIS HAPPENS JUST PLACE NEW DRESSING OVER IT TO AVOID STAINING CLOTHES. You may shower on post op day # 1 We ask that you do not let the water soak the wound. If it does get wet, just towel dry lightly. Please do not scrub your incision or place any type of chemical/ointment on the wound. No tub baths, pools or jacuzzis for one month. If you have any leaking or redness from your wound, or fevers, please call office Care Plan Goals: Return to normal activity as tolerated. Health Concerns: Follow-up with outpatient provider regarding CREST Plan of Treatment: Follow-up in clinic in 7-10 days for suture removal. Assessment: POD: 2 Procedure: Status post T11-12 interbody fusion with pedicle screws and decompression of T11-12 calcified ligament, incidental durotomy Basilia was seen this morning sitting upright in bed on telemetry 4. Patient reports continued moderate back pain, her legs still feel intermittently numb but otherwise no other significant changes. She has not been out of bed. She has been eating and tolerating p.o. fluids. Her Hyde catheter has remained in. Afebrile, vital signs stable Physical exam: The patient is lying in bed, no acute distress. She has full / equal strength of bilateral lower extremities, which is significant improvement from our previous exam with her. Some sensational deficits continue to be elicited lower extremities. Back dressing is clean and dry with no signs of CSF leak. Impression / Plan: Postop day 2. Status post T11-12 interbody fusion with pedicle screws and decompression of T11-12 calcified ligament, incidental durotomy. She has back pain, her legs are still intermittently numb however on exam she appears to be stronger, most notably her left lower extremity appeared to be as strong as her right today. She has no headache or lightheadedness and her wound is dry. She will be seen by physical therapy today, and her head of bed restrictions are removed. All of her IV medications were DC'd as she is tolerating p.o. fine. Her Hyde catheter is also been discontinued, if she is unable to ambulate to the bathroom with the assistance of her nurse than a bedside commode is sufficient for the time being. We would like her transferred to rehab [facility] today pending PT evaluation. I will fill out a paper prescription for oxycodone 5 mg and provided to her nurse to be given to her upon transfer. The attending neurosurgeon Dr. Faustin understands and agrees to this plan. Morro Faustin MD,PhD [facility]
[2023-08-23 10:44] VITALS: BP 163/89; PULSE 92; O2SAT 96
[2023-08-23 11:27] VITALS: BP 110/55; PULSE 61; RESP 20; TEMP 36.3; O2SAT 95
[2023-08-23 11:36] LABS: Glucose, Whole Blood 104 mg/dL (60-115)
--- NOTE | 2023-08-23 12:39 | MHC.CM.PN ---
Pt has been medically cleared for DC, she will transfer to [facility] for acute rehab today via ambulance, family informed.
== END 2023-08-23 15:14 | DRG 30 ==
LOC: HO.SSSA 06:13 → HO.S3 08:37 → HO.IMC 08-21 16:06
PROVIDERS: Admitting Provider Neurological Surgery; PCP Internal Medicine Nephrology; Visit Provider Neurological Surgery
PROC: 0RG60A0 Fusion of Thoracic Vertebral Joint with Interbody Fusion Device, Anterior Approach, Anterior Column, Open Approach (ICD-10-PCS; principal; 2023-08-21 10:30)
PROC: 0RG60A0 Fusion of Thoracic Vertebral Joint with Interbody Fusion Device, Anterior Approach, Anterior Column, Open Approach (ICD-10-PCS; 2023-08-21 10:30)
DX: G95.29 Other cord compression (principal); G82.20 Paraplegia, unspecified; M35.9 Systemic involvement of connective tissue, unspecified; Z79.51 Long term (current) use of inhaled steroids; Z79.52 Long term (current) use of systemic steroids; Z79.631 Long term (current) use of antimetabolite agent; Z79.899 Other long term (current) drug therapy
CPT/HCPCS: 82947; 88305; 97162; 99024; C1713; C1758; J0131; J0690; J1100; J1170; J2250; J2405; J2704; J3010; L8699; Q4100

== ENCOUNTER → 2023-08-20 06:08 | Outpatient (BNV) | payer MEDICARE, SELFPAY | PROVIDERS: Admitting Provider Neurological Surgery; PCP Internal Medicine Nephrology; Visit Provider Physician Assistant | DX: M43.14 Spondylolisthesis, thoracic region (principal); G95.20 Unspecified cord compression | CPT/HCPCS: 20930; 22556; 22612; 22614; 22840; 22853; 63064; 63266; 99499 ==

== ENCOUNTER 2023-09-11 13:38 | Outpatient (AMB) | payer MEDICARE, SELFPAY ==
--- NOTE | 2023-09-11 13:50 | MHC.OFFVIS ---
Intake Intake Visit Reasons: Suture Removal Intake Note: Ms. Miramontes is here today for her 1st post-op visit. 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 DJD (degenerative joint disease) Undifferentiated connective tissue disease Atrophic vulva Allergic rhinitis Essential hypertension Hypercholesteremia Colonic polyp Surgical History H/O breast surgery H/O hernia repair H/O total hysterectomy History of colonoscopy History of carpal tunnel surgery Family History Mother Hypertension Diabetes Malignant lymphoma Father Myocardial infarct Hypertension Brother Hypertension Social History Household Members: None Housing: House Are you a primary career manager to a significant other at home: No Do you presently have visiting nurse or other home services: No Alcohol intake: never Patient Tobacco Use Status: Never used Tobacco Assessment & Plan Assessment & Plan (1) 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 Basilia comes in today for her 1st postoperative visit. She reports she is very satisfied with the surgery and feels much better than she did preoperatively. The patient reports she is up walking around with the assistance of her walker and is completing the majority of her ADLs. She has returned home, and is no longer at the acute inpatient rehab center. She is still having at-home physical therapy. She continues to report similar numbness/tingling in her thighs that she had prior to surgery, however feels that her weakness is somewhat improved. She will need additional time to heal before she can be properly reassessed. No new neurological deficits. Patient is able to ambulate well, rises from a seated position without difficulty. Incision sites are closed, well healing, with no signs of drainage. Bandage placed over them was removed, and the patient was advised to keep the area open air. We will follow-up with the patient in 6 weeks for her 2nd postoperative visit. At that time we will get x-rays to review with the patient. 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
== END 2023-09-11 14:17 | disposition home or self-care (01) ==
PROVIDERS: PCP Internal Medicine Nephrology; Visit Provider Physician Assistant
DX: M47.10 Other spondylosis with myelopathy, site unspecified (principal)
CPT/HCPCS: 99024

== ENCOUNTER → 2023-09-11 13:38 | Outpatient (BNVA) | payer MEDICARE, SELFPAY | PROVIDERS: PCP Internal Medicine Nephrology; Visit Provider Physician Assistant | DX: M47.10 Other spondylosis with myelopathy, site unspecified (principal) | CPT/HCPCS: 99212 ==

== ENCOUNTER 2023-10-24 13:55 | Outpatient (AMB) | payer MEDICARE, SELFPAY ==
--- NOTE | 2023-10-24 14:24 | MHC.OFFVIS ---
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 DJD (degenerative joint disease) Undifferentiated connective tissue disease Atrophic vulva Allergic rhinitis Essential hypertension Hypercholesteremia Colonic polyp Surgical History H/O breast surgery H/O hernia repair H/O total hysterectomy History of colonoscopy History of carpal tunnel surgery Family History Mother Hypertension Diabetes Malignant lymphoma Father Myocardial infarct Hypertension Brother Hypertension Social History Household Members: None Housing: House Are you a primary critical care specialist to a significant other at home: No Do you presently have visiting nurse or other home services: No Alcohol intake: never Patient Tobacco Use Status: Never used Tobacco Assessment & Plan Assessment & Plan (1) 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 She has noticed improvement in her walking and in her ability to mobilize at home. She is still dealing with proximal leg weakness and numbness but it is better than before surgery. Her bladder is working better than it was before surgery. She continues to work with therapy. On my exam she is still demonstrating about a 3/5 left iliopsoas weakness with some mild quadriceps weakness as well. Diminished sensation along the upper thighs well. Her wounds are well healed in her x-rays look great today. I encouraged her to continue with therapy, and to be patient as we know it can take 1-2 years for complete healing of a spinal cord injury. I would like to see her back in a few months with a set of x-rays. 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
== END 2023-10-24 15:06 | disposition home or self-care (01) ==
PROVIDERS: PCP Internal Medicine Nephrology; Visit Provider Physician Assistant
DX: M47.10 Other spondylosis with myelopathy, site unspecified (principal)
CPT/HCPCS: 99024

== ENCOUNTER 2023-10-24 13:55 | Outpatient (REF) | payer MEDICARE, SELFPAY ==
--- NOTE | ~2023-10-24 | XR_ITS ---
EXAMINATION: XR THORACIC SPINE XR LUMBAR SPINE CLINICAL INFORMATION: T11-T12 Trans-Kambin lumbar interbody fusion. Spondylosis with myelopathy please include T11-T12. COMPARISON: Bilateral hip images of 04/15/2023. Fluoroscopy images of 08/21/2023. TECHNIQUE: 2 views of the thoracic spine. 2 views of the lumbar spine. FINDINGS: THORACIC SPINE: Advanced degenerative changes and calcifications on very limited images of the upper cervical spine should be evaluated with dedicated views of the cervical spine. The bones are diffusely demineralized. Mild S-shaped thoracolumbar scoliosis. Redemonstration of bilateral posterior rods and transpedicular screws with interbody fusion hardware at T11-T12. Advanced multilevel degenerative changes in the thoracic spine. Hardware appears intact. LUMBAR SPINE: Degenerative changes in the bilateral sacroiliac joints. The bones are diffusely demineralized. Levoscoliosis of the lumbar spine. Advanced multilevel degenerative changes in the lumbar spine with loss of disc space height most notable at L2-L3. Grade 1 retrolisthesis of L3 on L4 with moderate loss of disc space height. Grade 1 anterolisthesis of L4 on L5. Facet arthritis in lower lumbar spine. Advanced atherosclerotic aortoiliac calcifications. XR/XR lumbar spine 4V min IMPRESSION: 1. Redemonstration of bilateral posterior rods and transpedicular screws with interbody fusion hardware at T11-T12. Hardware appears intact. 2. Advanced multilevel degenerative changes in the thoracic and lumbar spine. 3. Advanced degenerative changes and calcifications on very limited images of the lumbar cervical spine should be evaluated with dedicated views of the cervical spine.
--- NOTE | ~2023-10-24 | XR_ITS ---
EXAMINATION: XR THORACIC SPINE XR LUMBAR SPINE CLINICAL INFORMATION: T11-T12 Trans-Kambin lumbar interbody fusion. Spondylosis with myelopathy please include T11-T12. COMPARISON: Bilateral hip images of 04/15/2023. Fluoroscopy images of 08/21/2023. TECHNIQUE: 2 views of the thoracic spine. 2 views of the lumbar spine. FINDINGS: THORACIC SPINE: Advanced degenerative changes and calcifications on very limited images of the upper cervical spine should be evaluated with dedicated views of the cervical spine. The bones are diffusely demineralized. Mild S-shaped thoracolumbar scoliosis. Redemonstration of bilateral posterior rods and transpedicular screws with interbody fusion hardware at T11-T12. Advanced multilevel degenerative changes in the thoracic spine. Hardware appears intact. LUMBAR SPINE: Degenerative changes in the bilateral sacroiliac joints. The bones are diffusely demineralized. Levoscoliosis of the lumbar spine. Advanced multilevel degenerative changes in the lumbar spine with loss of disc space height most notable at L2-L3. Grade 1 retrolisthesis of L3 on L4 with moderate loss of disc space height. Grade 1 anterolisthesis of L4 on L5. Facet arthritis in lower lumbar spine. Advanced atherosclerotic aortoiliac calcifications. XR/XR thoracic spine 3V IMPRESSION: 1. Redemonstration of bilateral posterior rods and transpedicular screws with interbody fusion hardware at T11-T12. Hardware appears intact. 2. Advanced multilevel degenerative changes in the thoracic and lumbar spine. 3. Advanced degenerative changes and calcifications on very limited images of the lumbar cervical spine should be evaluated with dedicated views of the cervical spine.
== END 2023-10-24 13:56 | disposition home or self-care (01) ==
LOC: HO.HOSX 13:55
PROVIDERS: PCP Internal Medicine Nephrology; Visit Provider Physician Assistant
DX: M47.14 Other spondylosis with myelopathy, thoracic region (principal)
CPT/HCPCS: 72072; 72110; 99212

== ENCOUNTER 2023-11-21 14:54 | Outpatient (AMB) | payer MEDICARE, SELFPAY ==
--- NOTE | 2023-11-21 15:05 | MHC.OFFVIS ---
Intake Vital Signs 11/21/23 15:22 Height 5 ft Weight 127 lb 3.307 oz BMI 24.8 BP 122/68 Blood Pressure Location Lt brachial Position Sitting Intake Visit Reasons: crest/lumbar DDD/OA with Dr. Downey Intake Note: Patient last seen 07/31/23 presents today for follow up and MRI results. Has been holding MTX since back surgery [facility] Dr Faustin, would like to discuss further. Can Filler Required: No Accompanied by: Nephew Allergies itraconazole [From Sporanox] Allergy (Intermediate, Verified 11/21/23 15:26) hives sulfamethoxazole [From Bactrim] Allergy (Intermediate, Verified 11/21/23 15:26) Thrush trimethoprim [From Bactrim] Allergy (Intermediate, Verified 11/21/23 15:26) thrush Medication List - Last Reconciled 11/21/23 by Martha Downey MD acetaminophen ER (Tylenol Arthritis Pain) 650 mg PO Q12H PRN amlodipine 5 mg PO DAILY atorvastatin 40 mg PO DAILY calcium carbonate-vitamin D3 600 mg-10 mcg (400 unit) (Calcium 600 + D(3)) 1 tab PO BID fluticasone propionate 50 mcg/actuation (Allergy Relief (fluticasone)) 1 spray intranasal BID folic acid 1 mg PO DAILY gabapentin 100 mg PO BID hydrochlorothiazide 25 mg PO DAILY hydroxychloroquine (Plaquenil) 300 mg PO DAILY ibandronate 150 mg PO .monthly lisinopril 40 mg PO DAILY metoprolol succinate ER 12.5 mg PO DAILY omega 2-jpg-mts-fish oil 1,000 mg (120 mg-180 mg) (Fish Oil) 1 cap PO DAILY omeprazole 20 mg PO DAILY prednisone 3 mg PO QAM vitamin B complex (B Complex-Vitamin B12 tablet) 1 tab PO DAILY HPI HPI Comments History of Present Illness Details 82-year-old female with crest returns for follow-up. She is s/p thoracic spine surgery by Dr. Faustin in August. She states that she has some improvement with regards to her leg strength. However she continues to have bilateral hip flexor weakness and bilateral lower extremity tingling and numbness. She continues to work with home PT. she can stand but can not walk. She denies any swollen joint except for her known left knee arthritis. She is going to see her service attendant soon for a steroid injection. She denies any skin rashes. She denies any weight loss. She remains on hydroxychloroquine 400 mg daily remains on prednisone 4 mg daily. She has not been on methotrexate since the surgery back in August. most recent history by Dr. Ventura 07/2023 The patient presents with her nephew. She continues to have pain in the right shoulder, lower back, hips and left knee. We had tried to treat this as a PMR flare up with increased prednisone but there was no improvement. She felt weaker and had more pain and presented to the [facility] ER on the . I was able to look at some of the notes there. They felt she had weakness and pain. They did a lumbar CT scan showing multiple levels of osteoarthritis and DJD. Her sed rate and CRP were normal. LFTs and CBC were normal. She has remained on hydroxychloroquine 300 mg daily, methotrexate 12.5 mg daily, folic acid 1 mg daily and takes folic acid 1 mg daily. She has an appointment next week to get her left knee looked at; she has a service attendant who occasionally injects it. However difficulty walking stems not only from knee pain but also some pain in the left buttock and left leg. There is also numbness in both feet, more prominent on the left. She has no headache, jaw claudication or visual disturbance. She also has features of CREST syndrome but those seem to be stable. 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 DJD (degenerative joint disease) Undifferentiated connective tissue disease Atrophic vulva Allergic rhinitis Essential hypertension Hypercholesteremia Colonic polyp Surgical History H/O breast surgery H/O hernia repair H/O total hysterectomy History of colonoscopy History of carpal tunnel surgery Family History Mother Hypertension Diabetes Malignant lymphoma Father Myocardial infarct Hypertension Brother Hypertension Social History Household Members: None Housing: House Are you a primary assistant child care teacher to a significant other at home: No Do you presently have visiting nurse or other home services: No Alcohol intake: never Patient Tobacco Use Status: Never used Tobacco Review of Systems Const Reports weakness Musc Reports joint swelling, Reports muscle weakness and Reports numbness Skin/Breast Denies rash Neuro Reports numbness and Reports weakness Physical Exam Vital Signs: Last Vital Signs BP 122/68 11/21/23 15:22 BMI result Body Mass Index 24.8 Const General: cooperative, healthy appearing and comfortable Nutritional Appearance: average body habitus Orientation/consciousness: patient oriented x3 Limitations: ambulation with walker HEENT Head: Yes normocephalic and Yes atraumatic Mouth: moist mucous membranes Resp Effort & Inspection: normal respiratory effort and able to speak in complete sentences Auscultation: clear to auscultation bilaterally Cardio Rate: regular rate Rhythm: regular rhythm Skin Other: Multiple telangiectasia Neuro General: patient oriented x3 Extrem Other: Bilateral sclerodactyly Very minimal skin thickening Normal nailfold capillaroscopy No active synovitis Right foot bunion Deformity of left knee and mild warmth and swelling Significantly reduced right shoulder abduction due to (known significant rotator cuff tendinopathy and muscle atrophy) Proximal Muscle strength left upper extremity 5/5 Neck flexion and extension normal Right hip flexors 4+ / 5, left hip flexors 4/5 Normal dorsiflexion and plantar flexion of both feet Bilateral reduced sensation from the thighs down Assessment & Plan Assessment & Plan (1) CREST (calcinosis, Raynaud's phenomenon, esophageal dysfunction, sclerodactyly, telangiectasia): Comment: hx of mild sclerodactyly; Positive DIAMANTE centromere, Rheumatoid factor positive, CCP negative. 01/2023-Raynaud's, telangiectasias, esophageal dysmotility, Cutaneous calcifications removed from the fingertips of the left hand. History of synovitis in hands - methotrexate 7 tabs weekly, 1mg folic acid daily, 3mg prednisone daily and plaquenil 400mg po daily. Previously on leflunomide discontinued around 06/2022 due to weight loss. Code(s): M34.1 - CR(E)ST syndrome Plan: This is an 82-year-old female with crest syndrome who presents as a new patient for me. She used to follow-up with Dr. Ventura. I do not see any active synovitis on exam. She has been off her methotrexate for 3-4 months now. Can discontinue methotrexate now. Reduce hydroxychloroquine to 300 mg daily. Reduce prednisone to 3 mg daily. Will continue to monitor patient clinically. It seems her main problem at this point is bilateral lower extremity weakness and numbness. According to patient she did not have much improvement since after her thoracic spine surgery. According to patient's nephew however she seems to have a little more strength. Will check bilateral lower extremity EMG/NCV. Check muscle enzymes and inflammatory markers. 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 Will check bilateral lower extremity EMG/NCV Plan I spent 66 minutes reviewing patient's chart, evaluating patient, ordering diagnostic workup, counseling patient and documenting in the chart Orders: Orders Comprehensive Met. Panel Today M34.1 - CR(E)ST syndrome C Reactive Protein Today M34.1 - CR(E)ST syndrome Aldolase Today M34.1 - CR(E)ST syndrome Lactate Dehydrogenase Today M34.1 - CR(E)ST syndrome Complete Blood Count Auto Diff Today M34.1 - CR(E)ST syndrome Creatine Kinase Total Today M34.1 - CR(E)ST syndrome Erythrocyte Sedimentation Rate Today M34.1 - CR(E)ST syndrome Gamma Glutamyl Transpeptidase Today R79.89 - Other specified abnormal findings of blood chemistry NE electromyogram (EMG) Today M6.81 - Muscle weakness (generalized) Medications: Changed From prednisone 4 mg (4 x 1 mg) PO QAM 120 tabs 1RF To prednisone 3 mg PO QAM Coding Level of Care Code Est Pt Level 5 (70777) Diagnoses CREST (calcinosis, Raynaud's phenomenon, esophageal dysfunction, sclerodactyly, telangiectasia) M34.1 custodial use of drug Z79.899 Muscle weakness of lower extremity M62.81
[2023-11-21 15:22] VITALS: BP 122/68; BMI 24.8
== END 2023-11-21 16:24 | disposition home or self-care (01) ==
PROVIDERS: PCP Physician Assistant Medical; Visit Provider Student in an Organized Health Care Education/Training Program
DX: M34.1 CR(E)ST syndrome (principal); Z79.899 Other long term (current) drug therapy
CPT/HCPCS: 99215

== ENCOUNTER → 2023-11-21 14:54 | Outpatient (BNVA) | payer MEDICARE, SELFPAY | PROVIDERS: PCP Physician Assistant Medical; Visit Provider Student in an Organized Health Care Education/Training Program | DX: M34.1 CR(E)ST syndrome (principal); M51.36 Other intervertebral disc degeneration, lumbar region; Z79.899 Other long term (current) drug therapy | CPT/HCPCS: 99212 ==

== ENCOUNTER 2023-12-13 13:27 | Outpatient (REF) | payer MEDICARE, SELFPAY ==
--- NOTE | 2023-12-13 13:32 | EMG_ITS ---
Chief complaint: 81-year-old. Status post T11-12 minimally invasive interbody fusion with decompression for removal of calcified deposits in the posterior elements causing severe spinal cord compression and paraparesis 08/21/2023. History of crest. Hip/leg weakness noted prior to surgery and unfortunately has not improved since. Left hip flexors noted to be worse than the right. No footdrop. No atrophy noted. Reason for referral: Evaluate for myopathy, radiculopathy, neuropathy Referred by: Dr. Downey Procedure done: Bilateral lower extremity NCS/EMG Precautions and/or limitations: Advanced age The limb temperature was monitored continuously and remained between 32-36 degrees C during the performance of the NCS. Nerve Conduction Studies Anti Sensory Summary Table ?Stim Site NR Onset (ms) Norm Onset (ms) Peak (ms) Norm Peak (ms) O-P Amp (?V) Norm O-P Amp Site1 Site2 Delta-0 (ms) Dist (cm) Olu (m/s) Norm Olu (m/s) Left Sural Anti Sensory (Lat Mall) Calf ? 2.4 3.3 <4.0 0.3 >5.0 Calf Lat Mall 2.4 14.0 58 Right Sural Anti Sensory (Lat Mall) Calf ? 1.9 2.2 <4.0 2.6 >5.0 Calf Lat Mall 1.9 14.0 74 Motor Summary Table ?Stim Site NR Onset (ms) Norm Onset (ms) O-P Amp (mV) Norm O-P Amp iAmp (mV) Amp (1st) (%) Site1 Site2 Delta-0 (ms) Dist (cm) Olu (m/s) Norm Olu (m/s) Left Peroneal Motor (Ext Dig Brev) Ankle ? 6.6 <4.0 2.3 >2.5 3.0 100.0 Ankle Ext Dig Brev 6.6 0.0 B Fib ? 13.5 1.9 2.5 82.6 B Fib Ankle 6.9 28.0 41 >40 Poplt ? 15.0 2.1 2.8 91.3 Poplt B Fib 1.5 4.5 30 >40 Right Peroneal Motor (Ext Dig Brev) Ankle ? 5.9 <4.0 3.8 >2.5 4.9 100.0 Ankle Ext Dig Brev 5.9 0.0 B Fib ? 11.9 3.2 4.3 84.2 B Fib Ankle 6.0 28.0 47 >40 Poplt ? 13.1 3.0 3.6 78.9 Poplt B Fib 1.2 5.0 42 >40 Left Tibial Motor (Abd Manzo Brev) Ankle ? 7.7 <5 3.8 >2.5 4.9 100.0 Ankle Abd Manzo Brev 7.7 0.0 Knee ? 16.9 2.4 3.2 63.2 Knee Ankle 9.2 34.0 37 >40 Right Tibial Motor (Abd Manzo Brev) Ankle ? 5.7 <5 2.8 >2.5 4.1 100.0 Ankle Abd Manzo Brev 5.7 0.0 Knee ? 15.6 2.1 3.1 75.0 Knee Ankle 9.9 36.0 36 >40 EMG ?Side Muscle Nerve Root Ins Act Fibs Psw Amp Dur Poly Recrt Int Pat Comment Right AbdHallucis MedPlantar S1-2 Nml Nml Nml Nml Nml 0 Nml Complete Right AntTibialis Dp Br Peron L4-5 Nml Nml Nml Incr Incr 1+ Nml Complete Right PostTibialis Tibial L5, S1 Nml Nml Nml Nml Nml 0 Nml Complete Right MedGastroc Tibial S1-2 Nml Nml Nml Incr Incr 1+ Nml Complete Right VastusMed Femoral L2-4 Nml Nml Nml Nml Nml 0 Nml Complete Left AbdHallucis MedPlantar S1-2 Nml Nml Nml Nml Nml 0 Nml Complete Left AntTibialis Dp Br Peron L4-5 Nml Nml Nml Incr Incr 1+ Nml Complete Left PostTibialis Tibial L5, S1 Nml Nml Nml Nml Nml 0 Nml Complete Left MedGastroc Tibial S1-2 Nml Nml Nml Nml Nml 0 Nml Complete Left VastusMed Femoral L2-4 Nml Nml Nml Nml Nml 0 Nml Complete Paraspinal EMG ?Side Muscle Nerve Root Ins Act Fibs Psw Comment Right Lumbar Upper Rami Nml Nml Nml Right Lumbar Mid Rami Incr 1+ 1+ Right Lumbar Lower Rami Nml Nml Nml Left Lumbar Upper Rami Nml Nml Nml Left Lumbar Mid Rami Nml Nml Nml Left Lumbar Lower Rami Nml Nml Nml FINDINGS: Right peroneal nerve showed prolonged distal latency, normal amplitude and normal conduction velocity. Left peroneal nerve showed prolonged distal latency, small amplitude and slow conduction velocity across fibular neck. Bilateral tibial nerves showed prolonged distal latency, small amplitude and normal conduction velocity. Bilateral sural nerves were present, normal peak latencies, but small amplitudes. All other nerves tested were within normal. Concentric needle EMG was performed in selected muscles of the bilateral lower extremities and lumbar paraspinals. Study revealed signs of electric abnormalities as shown in the table below. Right medial gastrocnemius, right tibialis anterior, left tibialis anterior showed increased amplitude, duration and polyphasia. Right mid lumbar paraspinals showed increased insertional activity, PSWs and fibrillations. No myopathic looking units seen. IMPRESSION: 1. This is an abnormal study. 2. There is electrodiagnostic findings suggestive for bilateral L4-5 chronic radiculopathy. 3. Small sural amplitudes could be attributed to advanced age. Therefore there was no electrodiagnostic evidence for peripheral neuropathy or lumbar plexopathy. Thank you for your kind referral. Niya Herrera MD, CARMINE Board Certified, [place] Board [employer] and Rehabilitation (ABPMR) Board Certified, [place] Board of Electrodiagnostic Medicine (ABEM) CODIN [id number] x 2 MTDD
[2023-12-13 14:07] LABS: MANUAL DIFF FLAG NO
[2023-12-13 14:59] LABS: Basophils Percent Auto 0.2 % (0-2); Eosinophils Percent Auto 0.5 % (0-4); Hematocrit 39.1 % (37.0-47.0); Hemoglobin 12.9 g/dl (12.0-16.0); Imm Gran Abs Auto 0.01 X10*3/uL (0.00-0.03); Imm Gran Pct Auto 0.2 % (0.0-0.4); Lymphocytes Absolute Auto 0.9 X10*3/uL (1.2-4.9); Mean Corpuscular Hemoglobin 31.1 pg (27.0-33.0); Mean Corpuscular Volume 94.2 fL (80.0-98.0); Mean Platelet Volume 11.2 fL (9.4-12.3); Monocytes Absolute Auto 0.4 X10*3/uL (0.1-1.2); Monocytes Percent Auto 5.9 % (2-11); Neutrophils Absolute Auto 4.6 x10*3/uL (2.0-8.3); Neutrophils Percent Auto 78.2 % (45-73); Platelet Count 203 X10*3/uL (160-400); Red Blood Count 4.15 X10*6/uL (4.20-5.50); Red Cell Distribution Width 13.9 % (11.0-16.0); White Blood Count 5.9 X10*3/uL (4.8-10.8)
[2023-12-13 15:44] LABS: Alanine Aminotransferase 19 U/L (0-31); Albumin Level 4.2 g/dL (3.5-5.0); Alkaline Phosphatase 66 U/L (39-117); Anion Gap 11 (12-20); Aspartate Amino Transferase 20 U/L (5-31); Bilirubin Total 0.4 mg/dL (0.0-1.0); Blood Urea Nitrogen 15 mg/dL (9-16); C Reactive Protein < 0.10 mg/dL (< or = 0.50); Carbon Dioxide 29 mmol/L (22-29); Chloride 105 mmol/L (96-108); Estimated Glomerular Filt Rate > 60; Gamma Glutamyl Transpeptidase 26 U/L (7-33); Glucose Random 87 mg/dL (60-115); Lactate Dehydrogenase 196 U/L (122-220); Potassium 4.2 mmol/L (3.3-5.1); Sodium 141 mmol/L (135-145); Total Protein 6.8 g/dL (6.5-8.0)
[2023-12-13 16:12] LABS: Erythrocyte Sedimentation Rate 17 MM/HR (0-20)
[2023-12-19 14:25] LABS: Aldolase 4.1 U/L (<=8.1)
== END 2023-12-13 13:28 | disposition home or self-care (01) ==
LOC: HO.NEURO 13:27
PROVIDERS: Visit Provider Student in an Organized Health Care Education/Training Program
DX: M34.1 CR(E)ST syndrome (principal); R79.89 Other specified abnormal findings of blood chemistry; M62.81 Muscle weakness (generalized)
CPT/HCPCS: 36415; 80053; 82085; 82550; 82977; 83615; 85025; 85652; 86140; 95886; 95909

== ENCOUNTER → 2023-12-13 13:32 | Outpatient (BNV) | payer MEDICARE, SELFPAY | PROVIDERS: Visit Provider Physical Medicine & Rehabilitation | DX: M54.16 Radiculopathy, lumbar region (principal) | CPT/HCPCS: 95886; 95909 ==

== ENCOUNTER 2023-12-20 06:22 | Outpatient (REF) | payer MEDICARE, SELFPAY | END 2023-12-20 06:23 | disposition home or self-care (01) | LOC: HO.HOSX 06:22 | PROVIDERS: Visit Provider Physician Assistant | DX: Z13.89 Encounter for screening for other disorder (principal) ==

== ENCOUNTER 2023-12-25 12:04 | Outpatient (REF) | payer MEDICARE, SELFPAY | END 2023-12-25 12:05 | disposition home or self-care (01) | LOC: HO.HOSX 12:04 | PROVIDERS: Visit Provider Physician Assistant | DX: Z13.89 Encounter for screening for other disorder (principal) ==

== ENCOUNTER 2023-12-26 13:48 | Outpatient (AMB) | payer MEDICARE, SELFPAY ==
--- NOTE | 2023-12-26 14:27 | A.SPINEOV_ITS ---
Intake Visit Reasons: 2 months f/up with xrays Intake Note: Ms. Miramontes is here today for a 2 month f/u with x-rays Photographic Printer Required: No Allergies itraconazole [From Sporanox] Allergy (Intermediate, Verified 11/21/23 15:26) hives sulfamethoxazole [From Bactrim] Allergy (Intermediate, Verified 11/21/23 15:26) Thrush trimethoprim [From Bactrim] Allergy (Intermediate, Verified 11/21/23 15:26) thrush Assessment & Plan Assessment & Plan (1) S/P spinal fusion: Code(s): Z98.1 - Arthrodesis status Category: Surgical Plan Mrs. Miramontes is 5 months out from her T11-12 minimally invasive interbody fusion with decompression for removal of calcified deposits in the posterior elements causing severe spinal cord compression and paraparesis. She continues to no gradual improvement at home with both mobility and balance. She states she is able to stand up and prepare food in the kitchen with the support of her counter tops. Unfortunately, her bladder control has remained large this same as when she was previously evaluated by [facility]. She does feel as though she has some increase in strength in her left lower extremity, but states it is modest at best. On exam she has what I would call 4/5 strength in her left iliopsoas which is a notable improvement from her 3/5 strength that was recorded by [facility] during their last visit. I reviewed her x-ray imaging which show stable placement of fusion construct at T11-12, and did unchanged scoliotic curvature noted in the lumbar spine when compared to previous imaging. Overall I believe she is healing very well, given her functional status preoperatively. I think the tincture of times the best remedy for continued healing at this time. I would like to see her back in 6 months to evaluate her continued progress. Morro Faustin MD,PhD [facility] Orders: Orders XR thoracic spine 3V 12/25/23 Z98.1 - Arthrodesis status
== END 2023-12-26 14:51 | disposition home or self-care (01) ==
PROVIDERS: PCP Physician Assistant Medical; Visit Provider Physician Assistant
DX: Z98.1 Arthrodesis status (principal)
CPT/HCPCS: 99212

== ENCOUNTER → 2023-12-26 13:48 | Outpatient (BNVA) | payer MEDICARE, SELFPAY | PROVIDERS: PCP Physician Assistant Medical; Visit Provider Physician Assistant | DX: Z98.1 Arthrodesis status (principal) ==

== ENCOUNTER 2023-12-26 13:49 | Outpatient (REF) | payer MEDICARE, SELFPAY ==
--- NOTE | ~2023-12-26 | XR_ITS ---
EXAMINATION: XR LUMBOSACRAL SPINE CLINICAL INFORMATION: Arthrodesis status COMPARISON: Lumbar spine 10/24/2023 TECHNIQUE: AP and lateral standing views of the lumbar spine FINDINGS: The AP view is slightly degraded by motion. The bones are diffusely demineralized. There is levoscoliosis of the lumbar spine. There are 5 nonrib-bearing lumbar-type vertebral bodies. The height of lumbar vertebral bodies is well-maintained there is mild anterior wedge compression of the T12 vertebral body. Advanced multilevel degenerative changes in the lower spine with loss of disc space height is most notable at L2-L3. Grade 1 retrolisthesis of L3 on L4 with moderate loss of disc space height. Grade 1 anterolisthesis of L4 on L5. There is multilevel degenerative facet joint disease. Again seen is bilateral posterior rods and transpedicular screws with interbody fusion hardware at T11-T12. There is no evidence of hardware complication. XR/XR lumbar spine 4V min IMPRESSION: 1. Again seen is bilateral posterior rods and transpedicular screws with interbody fusion at T11-T12. No evidence of hardware complication. 2. Multilevel degenerative disc and degenerative facet joint disease.
== END 2023-12-26 13:50 | disposition home or self-care (01) ==
LOC: HO.HOSX 13:49
PROVIDERS: Visit Provider Physician Assistant
DX: Z13.89 Encounter for screening for other disorder (principal)
CPT/HCPCS: 72110

== ENCOUNTER 2023-12-26 13:52 | Outpatient (REF) | payer MEDICARE, SELFPAY ==
--- NOTE | ~2023-12-26 | XR_ITS ---
EXAMINATION: XR THORACOLUMBAR SPINE CLINICAL INFORMATION: Arthrodesis status COMPARISON: Thoracic spine 10/24/2023 TECHNIQUE: AP and lateral views of the thoracic spine. FINDINGS: The bones are diffusely demineralized. There is mild S-shaped scoliosis of the thoracolumbar spine. Redemonstration of bilateral posterior rods and transpedicular screws with interbody fusion hardware at T11-T12. Advanced multilevel degenerative changes in the thoracic spine. Hardware appears intact. XR/XR thoracic spine 2V IMPRESSION: Redemonstration of bilateral posterior rods and transpedicular screws with interbody fusion hardware at T11-T12. Hardware appears intact.
== END 2023-12-26 13:53 | disposition home or self-care (01) ==
LOC: HO.HOSX 13:52
PROVIDERS: Visit Provider Physician Assistant
DX: Z98.1 Arthrodesis status (principal)
CPT/HCPCS: 72070; 72110; 99212

== ENCOUNTER 2024-01-22 12:51 | Outpatient (AMB) | payer MEDICARE, SELFPAY ==
--- NOTE | 2024-01-22 13:00 | A.OFFVIS_ITS ---
Vital Signs 01/22/24 13:01 Height 5 ft Intake Visit Reasons: CREST Intake Note: Patient last seen 11/21/23 presents today for follow up and test results. Export Specialist Required: No Accompanied by: Nephew Allergies itraconazole [From Sporanox] Allergy (Intermediate, Verified 01/22/24 13:12) hives sulfamethoxazole [From Bactrim] Allergy (Intermediate, Verified 01/22/24 13:12) Thrush trimethoprim [From Bactrim] Allergy (Intermediate, Verified 01/22/24 13:12) thrush Medication List - Last Reconciled 01/22/24 by Martha Downey MD acetaminophen ER (Tylenol Arthritis Pain) 650 mg PO Q12H PRN amlodipine 5 mg PO DAILY calcium carbonate-vitamin D3 600 mg-10 mcg (400 unit) (Calcium 600 + D(3)) 1 tab PO BID fluticasone propionate 50 mcg/actuation (Allergy Relief (fluticasone)) 1 spray intranasal BID gabapentin 100 mg PO BID hydrochlorothiazide 25 mg PO DAILY hydroxychloroquine (Plaquenil) 300 mg PO DAILY ibandronate 150 mg PO .monthly lisinopril 40 mg PO DAILY omega 3-rzt-mqa-fish oil 1,000 mg (120 mg-180 mg) (Fish Oil) 1 cap PO DAILY omeprazole 20 mg PO DAILY prednisone 3 mg PO QAM HPI Comments Details: 82-year-old female with crest returns for follow-up. She is s/p thoracic spine surgery by Dr. Faustin in August. She states that she has some improvement with regards to her leg strength. However she continues to have bilateral hip flexor weakness and bilateral lower extremity tingling and numbness. She continues to work with home PT. she can stand but can not walk. She denies any swollen joint except for her known left knee arthritis. She is going to see her sanitary napkin machine tender soon for a steroid injection. She denies any skin rashes. She denies any weight loss. She remains on hydroxychloroquine 400 mg daily remains on prednisone 4 mg daily. She has not been on methotrexate since the surgery back in August. most recent history by Dr. Ventura 07/2023 The patient presents with her nephew. She continues to have pain in the right shoulder, lower back, hips and left knee. We had tried to treat this as a PMR flare up with increased prednisone but there was no improvement. She felt weaker and had more pain and presented to the [facility] ER on the . I was able to look at some of the notes there. They felt she had weakness and pain. They did a lumbar CT scan showing multiple levels of osteoarthritis and DJD. Her sed rate and CRP were normal. LFTs and CBC were normal. She has remained on hydroxychloroquine 300 mg daily, methotrexate 12.5 mg daily, folic acid 1 mg daily and takes folic acid 1 mg daily. She has an appointment next week to get her left knee looked at; she has a sanitary napkin machine tender who occasionally injects it. However difficulty walking stems not only from knee pain but also some pain in the left buttock and left leg. There is also numbness in both feet, more prominent on the left. She has no headache, jaw claudication or visual disturbance. She also has features of CREST syndrome but those seem to be stable. 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 DJD (degenerative joint disease) Undifferentiated connective tissue disease Atrophic vulva Allergic rhinitis Essential hypertension Hypercholesteremia Colonic polyp Surgical History H/O breast surgery H/O hernia repair H/O total hysterectomy History of colonoscopy History of carpal tunnel surgery Family History Mother Hypertension Diabetes Malignant lymphoma Father Myocardial infarct Hypertension Brother Hypertension Social History Household Members: None Housing: House Are you a primary care specialist to a significant other at home: No Do you presently have visiting nurse or other home services: No Alcohol intake: never Patient Tobacco Use Status: Never used Tobacco Physical Exam Const General: cooperative, healthy appearing and comfortable Nutritional Appearance: average body habitus Orientation/consciousness: patient oriented x3 Limitations: ambulation with walker HEENT Head: Yes normocephalic and Yes atraumatic Mouth: moist mucous membranes Resp Effort & Inspection: normal respiratory effort and able to speak in complete sentences Auscultation: clear to auscultation bilaterally Cardio Rate: regular rate Rhythm: regular rhythm Skin Other: Multiple telangiectasia Neuro General: patient oriented x3 Extrem Other: Bilateral sclerodactyly Very minimal skin thickening Normal nailfold capillaroscopy No active synovitis Right foot bunion Significantly reduced right shoulder abduction due to (known significant rotator cuff tendinopathy and muscle atrophy) Very unsteady gait Proximal Muscle strength left upper extremity 5/5 Neck flexion and extension normal Right hip flexors 5 / 5, left hip flexors 4+/5 Normal dorsiflexion and plantar flexion of both feet Bilateral reduced sensation from the thighs down Assessment & Plan Assessment & Plan (1) CREST (calcinosis, Raynaud's phenomenon, esophageal dysfunction, sclerodactyly, telangiectasia): Comment: hx of mild sclerodactyly; Positive DIAMANTE centromere, Rheumatoid factor positive, CCP negative. 01/2023-Raynaud's, telangiectasias, esophageal dysmotility, Cutaneous calcifications removed from the fingertips of the left hand. History of synovitis in hands - methotrexate 7 tabs weekly, 1mg folic acid daily, 3mg prednisone daily and plaquenil 400mg po daily. Previously on leflunomide discontinued around 06/2022 due to weight loss. Code(s): M34.1 - CR(E)ST syndrome Category: Medical Plan: This is an 82-year-old female with crest syndrome who presents for follow-up. Doing reasonably well overall. On hydroxychloroquine 300 mg daily and prednisone 3 mg daily Continue current meds Will consider reducing prednisone to 2 mg daily next visit We discussed screening for ILD and pulmonary hypertension. Patient stated that she had PFTs done before and they were a terrible experience, she does not want to repeated. 2D echo done 01/2023 was unremarkable. 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
== END 2024-01-22 13:46 | disposition home or self-care (01) ==
PROVIDERS: PCP Physician Assistant Medical; Visit Provider Student in an Organized Health Care Education/Training Program
DX: M34.1 CR(E)ST syndrome (principal); Z79.899 Other long term (current) drug therapy
CPT/HCPCS: 99214

== ENCOUNTER → 2024-01-22 12:51 | Outpatient (BNVA) | payer MEDICARE, SELFPAY | PROVIDERS: PCP Physician Assistant Medical; Visit Provider Student in an Organized Health Care Education/Training Program | DX: M34.1 CR(E)ST syndrome (principal); Z79.899 Other long term (current) drug therapy | CPT/HCPCS: 99212 ==

== ENCOUNTER 2024-05-25 13:53 | Outpatient (AMB) | payer MEDICARE, SELFPAY ==
[2024-05-25 14:03] VITALS: BP 120/66; PULSE 83; O2SAT 94; BMI 25.8
--- NOTE | 2024-05-25 14:03 | MHC.OFFVIS ---
Vital Signs 05/25/24 14:03 Height 5 ft Weight 132 lb BMI 25.8 BP 120/66 Blood Pressure Location Lt brachial Position Sitting Pulse 83 Pulse Source Pulse Oximeter Pulse Oximetry (%) 94 Oxygen Delivery Method Room Air Intake Visit Reasons: [facility] Intake Note: Patient presents today for follow up on CREST, she was last seen on 01/22/2024. Accompanied by: Nephew or Niece Allergies itraconazole [From Sporanox] Allergy (Intermediate, Verified 05/25/24 14:15) hives sulfamethoxazole [From Bactrim] Allergy (Intermediate, Verified 05/25/24 14:15) Thrush trimethoprim [From Bactrim] Allergy (Intermediate, Verified 05/25/24 14:15) thrush Medication List - Last Reconciled 05/25/24 by Martha Downey MD acetaminophen ER (Tylenol Arthritis Pain) 650 mg PO Q12H PRN amlodipine 5 mg PO DAILY calcium carbonate-vitamin D3 600 mg-10 mcg (400 unit) (Calcium 600 + D(3)) 1 tab PO BID fluticasone propionate 50 mcg/actuation (Allergy Relief (fluticasone)) 1 spray intranasal BID gabapentin 300 mg PO BID hydrochlorothiazide 25 mg PO DAILY hydroxychloroquine (Plaquenil) 300 mg PO DAILY ibandronate 150 mg PO .monthly lisinopril 40 mg PO DAILY omega [id number]-fish oil 1,000 mg (120 mg-180 mg) (Fish Oil) 1 cap PO DAILY omeprazole 20 mg PO DAILY prednisone 3 mg (3 x 1 mg) PO QAM HPI Comments Details: 83-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 She states that she pulled a nail on her right middle finger about a week ago, it got red and infected, she was evaluated and prescribed mupirocin screen, she has been wrapping her right finger. It has improved but has not completely healed. She states that she continues to have of her legs. She can not walk without a walker. She gets intermittent left knee pain. She gets evaluated by a sports marketing internship and gets an ultrasound guided arthrocentesis and injections periodically. She states that the injections provide some relief. She denies any cough or shortness of breath. 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 DJD (degenerative joint disease) Atrophic vulva Allergic rhinitis Essential hypertension Hypercholesteremia Colonic polyp Surgical History H/O breast surgery H/O hernia repair H/O total hysterectomy History of colonoscopy History of carpal tunnel surgery Family History Mother Hypertension Diabetes Malignant lymphoma Father Myocardial infarct Hypertension Brother Hypertension Social History Household Members: None Housing: House Are you a primary patient care assistant to a significant other at home: No Do you presently have visiting nurse or other home services: No Alcohol intake: never Patient Tobacco Use Status: Never used Tobacco Review of Systems Const Reports weakness Skin/Breast Denies rash, Reports skin ulcer and Reports wounds Neuro Reports weakness Physical Exam Vital Signs: Last Vital Signs Pulse 83 05/25/24 14:03 BP 120/66 05/25/24 14:03 Pulse Ox 94 05/25/24 14:03 Oxygen Delivery Method Room Air 05/25/24 14:03 BMI result Body Mass Index 25.8 Const General: cooperative, healthy appearing and comfortable Nutritional Appearance: average body habitus Orientation/consciousness: patient oriented x3 Limitations: ambulation with walker HEENT Head: Yes normocephalic and Yes atraumatic Mouth: moist mucous membranes Resp Effort & Inspection: normal respiratory effort and able to speak in complete sentences Auscultation: clear to auscultation bilaterally Cardio Rate: regular rate Rhythm: regular rhythm Skin Other: Multiple telangiectasias Neuro General: patient oriented x3 Extrem Other: Bilateral sclerodactyly Very minimal skin thickening on fingers Normal nailfold capillaroscopy No active synovitis Wound on right 3rd digital tip, it has closed with a scab. Right foot bunion Significantly reduced right shoulder abduction due to (known significant rotator cuff tendinopathy and muscle atrophy) Assessment & Plan Assessment & Plan (1) CREST (calcinosis, Raynaud's phenomenon, esophageal dysfunction, sclerodactyly, telangiectasia): Comment: mild sclerodactyly; ++ DIAMANTE centromere++RF , CCP negative. 01/2023-Raynaud's, telangiectasias, esophageal dysmotility, Cutaneous calcifications removed from the fingertips of the left hand. History of synovitis in hands - methotrexate 7 tabs weekly, 1mg folic acid daily, 3mg prednisone daily and plaquenil 400mg po daily. Previously on leflunomide discontinued around 06/2022 due to weight loss. Code(s): M34.1 - CR(E)ST syndrome Category: Medical Plan: This is an 83-year-old female with crest syndrome who presents for follow-up. On hydroxychloroquine 300 mg daily and prednisone 3 mg daily. She cut her finger and had a wound on the right 3rd digital tip it is improving. Continue with amlodipine 5 mg daily. Start aspirin 81 mg daily for 1 month, may improve blood flow and speed up healing Reduce prednisone to 2 mg daily Continue hydroxychloroquine 200 mg daily We discussed screening for ILD and pulmonary hypertension. 2D echo done 01/2023 was unremarkable. Patient could not tolerate PFTs in the past. Ordered HRCT chest to screen for ILD Labs before next visit in 3 months (2) care home use of drug: Code(s): Z79.899 - Other snf (current) drug therapy Category: Medical Plan: Patient aware of risk of retinopathy associated with hydroxychloroquine. She follows up regularly with senior treasury consultant. She states that she was recently evaluated by Dr. Beck and cleared to continue hydroxychloroquine. I will attempt to request records (3) Osteopenia: Code(s): M85.80 - Other specified disorders of bone density and structure, unspecified site Category: Medical Qualifiers: Osteopenia location: multiple sites Qualified Code(s): M85.89 - Other specified disorders of bone density and structure, multiple sites Plan: Per patient has been on ibandronate for a few years. I do not have record of her bone density scans. I will attempt to retrieve DEXA scans Plan I spent 20 minutes reviewing patient's chart, evaluating patient, counseling patient and documenting in the chart Orders: Orders CT chest wo con - High Res Today M34.1 - CR(E)ST syndrome, R06.02 - Shortness of breath Complete Blood Count Auto Diff 3 Months M34.9 - Systemic sclerosis, unspecified Comprehensive Met. Panel 3 Months M34.9 - Systemic sclerosis, unspecified Immunofixation Pnl, Serum 3 Months M34.9 - Systemic sclerosis, unspecified T Spot TB 3 Months Z11.7 - Encounter for testing for latent tuberculosis infection Collagen Type I C-Telopeptide 3 Months Z13.820 - Encounter for screening for osteoporosis Vitamin D 25-OH Total 3 Months E55.9 - Vitamin D deficiency, unspecified C Reactive Protein 3 Months M34.9 - Systemic sclerosis, unspecified Erythrocyte Sedimentation Rate 3 Months M34.9 - Systemic sclerosis, unspecified Hepatitis A,B,C Profile 3 Months Z11.59 - Encounter for screening for other viral diseases Protein Electrophoresis, Serum 3 Months M34.9 - Systemic sclerosis, unspecified Anti-Centromere B Antibodies 3 Months M34.9 - Systemic sclerosis, unspecified Medications: New hydroxychloroquine 300 mg (1.5 x 200 mg) PO DAILY 135 tabs 1RF aspirin 81 mg PO DAILY 30 tabs 0RF Coding Level of Care Code Est Pt Level 4 (46071) Diagnoses CREST (calcinosis, Raynaud's phenomenon, esophageal dysfunction, sclerodactyly, telangiectasia) M34.1 care home use of drug Z79.899 Osteopenia of multiple sites M85.89 Osteopenia location: multiple sites
== END 2024-05-25 14:52 | disposition home or self-care (01) ==
PROVIDERS: PCP Physician Assistant Medical; Visit Provider Student in an Organized Health Care Education/Training Program
DX: M34.1 CR(E)ST syndrome (principal); Z79.899 Other long term (current) drug therapy; M85.89 Other specified disorders of bone density and structure, multiple sites
CPT/HCPCS: 99214

== ENCOUNTER → 2024-05-25 13:53 | Outpatient (BNVA) | payer MEDICARE, SELFPAY | PROVIDERS: PCP Physician Assistant Medical; Visit Provider Student in an Organized Health Care Education/Training Program | DX: M34.1 CR(E)ST syndrome (principal); M85.89 Other specified disorders of bone density and structure, multiple sites; Z79.899 Other long term (current) drug therapy | CPT/HCPCS: 99212 ==

== ENCOUNTER 2024-06-15 13:51 | Outpatient (REF) | payer MEDICARE, SELFPAY ==
--- NOTE | ~2024-06-15 | CT_ITS ---
EXAMINATION: CT CHEST WITHOUT IV CONTRAST. CLINICAL INFORMATION: Crest syndrome. COMPARISON: No priors. TECHNIQUE: Contiguous axial images through the thorax/chest using 1.5 and 5.0 mm collimation with soft tissue and lung algorithm. Sagittal and coronal reformatted images acquired. Axial MIPS. Total of 123 mGy- centimeters. FINDINGS: Submitted for interpretation on August 18, 2024. There are multifocal, scattered, randomly distributed less than 2 mm calcified pulmonary nodules, both lungs. No consolidation, pleural effusion or pneumothorax. No bronchiectasis. No honeycombing. Respiratory airways is patent. Calcified plaques throughout the thoracic aorta its main branches and the coronary arteries. Calcified plaques in the mitral valve. No lymphadenopathy, mediastinum. Small trace pericardial effusion. Fluid-filled and gas-filled esophagus without gross wall thickening or distention. There is a 5 cm lobulated and likely septated fluid density lesion, right hepatic lobe. Calcified plaques in the splenic artery. Calcified plaques in the included abdominal aorta and origin of the renal arteries. Soft tissue fullness with dystrophic calcification in the left breast. Multilevel spondylosis. Status post transpedicle screws fusion T11 and T12 bilaterally with a grade 1 anterolisthesis T11-12. Status post intervertebral body disc spacer placement, T11-T12. Grade 1 anterolisthesis, T1-2 and T2-3 and the 3 4 levels. Multilevel central spinal canal stenosis on a degenerative basis with multilevel posterior marginal osteophyte formation. CT/CT chest wo con - High Res IMPRESSION: Prior granulomatous disease process. Histoplasmosis cannot be excluded. No acute airspace disease. Coronary artery disease and atherosclerosis disease. Delayed emptying suggesting esophageal dysmotility versus gastroesophageal reflux. Multilevel spondylosis resulting in multilevel grade 1 anterolisthesis. Status post posterior fusion T11-T12 with grade 1 anterolisthesis. 5 cm septated cystic lesion, right hepatic lobe. Electronically signed by: Soren Draper MD 08/18/2024 09:00 AM EST
== END 2024-06-15 13:52 | disposition home or self-care (01) ==
LOC: HO.CT 13:51
PROVIDERS: PCP Physician Assistant Medical; Visit Provider Student in an Organized Health Care Education/Training Program
DX: M34.1 CR(E)ST syndrome (principal); R06.02 Shortness of breath
CPT/HCPCS: 71250

== ENCOUNTER → 2024-06-15 13:54 | Outpatient (BNV) | payer MEDICARE, SELFPAY | PROVIDERS: PCP Physician Assistant Medical; Visit Provider Radiology Diagnostic Radiology | DX: M34.1 CR(E)ST syndrome (principal) | CPT/HCPCS: 71250 ==

== ENCOUNTER 2024-06-29 13:53 | Outpatient (AMB) | payer MEDICARE, SELFPAY ==
--- NOTE | 2024-06-29 14:08 | HO.SPINEOV ---
Intake Visit Reasons: 6 month follow up Intake Note: Mrs. 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 About 10 months ago we did a minimally invasive T11-12 interbody fusion and decompression for severe compression of the spinal cord secondary to calcifications and overgrowth of the posterior elements. She has seen significant improvements in her mobility, but still has to use a wheelchair for longer distances and walker at home because of balance. She still has some spasticity in the left leg. I went back and looked at all of her imaging again. I do not see anything that was suggests there is a problem in the lumbar spine or above the operation. I suspect what she is dealing with a just residual affects of myelopathy. Unfortunately this may be her baseline moving forward. Usually I tell patients about 1 year to 1-1/2 years is the time for healing. She understands that at her age there maybe some limitations but she is more than willing to accept the fact that she is still mobile and can get around her house okay and she is very pleased about that. That is a significant improvement compared to where she was before surgery. At this point I do not think she needs any further follow-up but I told her she develops any new symptoms to call me I would happily get a new MRI. 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
== END 2024-06-29 14:46 | disposition home or self-care (01) ==
PROVIDERS: PCP Physician Assistant Medical; Visit Provider Physician Assistant
DX: M47.10 Other spondylosis with myelopathy, site unspecified (principal)
CPT/HCPCS: 99213

== ENCOUNTER → 2024-06-29 13:53 | Outpatient (BNVA) | payer MEDICARE, SELFPAY | PROVIDERS: PCP Physician Assistant Medical; Visit Provider Physician Assistant | DX: M47.10 Other spondylosis with myelopathy, site unspecified (principal) | CPT/HCPCS: 99212 ==

== ENCOUNTER 2024-09-10 13:43 | Outpatient (AMB) | payer MEDICARE, SELFPAY ==
--- NOTE | 2024-09-10 13:44 | A.OFFVIS_ITS ---
Vital Signs 09/10/24 13:57 Height 5 ft Weight 136 lb 7.458 oz BMI 26.6 BP 142/7 H Blood Pressure Location Lt brachial Position Sitting Intake Visit Reasons: [facility] Intake Note: Patient presents for [facility]. Allergies itraconazole [From Sporanox] Allergy (Intermediate, Verified 09/10/24 13:49) hives sulfamethoxazole [From Bactrim] Allergy (Intermediate, Verified 09/10/24 13:49) Thrush trimethoprim [From Bactrim] Allergy (Intermediate, Verified 09/10/24 13:49) thrush Medication List - Last Reconciled 09/10/24 by Martha Downey MD acetaminophen ER (Tylenol Arthritis Pain) 650 mg PO Q12H PRN amlodipine 5 mg PO DAILY calcium carbonate-vitamin D3 600 mg-10 mcg (400 unit) (Calcium 600 + D(3)) 1 tab PO BID fluticasone propionate 50 mcg/actuation (Allergy Relief (fluticasone)) 1 spray intranasal BID gabapentin 300 mg PO BID hydrochlorothiazide 12.5 mg PO DAILY hydroxychloroquine 300 mg (1.5 x 200 mg) PO DAILY lisinopril 40 mg PO DAILY mirabegron ER (Myrbetriq) 25 mg PO DAILY omeprazole 40 mg PO DAILY prednisone 2 mg (2 x 1 mg) PO QAM HPI Comments Details: 83-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 She states that she has been doing reasonably well overall. She continues to have minimal episodes of reflux. She takes omeprazole 20 mg daily. Her bilateral thigh achiness and weakness is about the same. Recently she has been having left knee pain and swelling. Has not had any significant Raynaud's episodes [facility] Medical History Constipation Cataract Vitamin D deficiency Anxiety Varicose veins of bilateral lower extremities with other complications Carpal tunnel syndrome Glaucoma [facility] systemic steroid user DJD (degenerative joint disease) Atrophic vulva Allergic rhinitis Essential hypertension Hypercholesteremia Colonic polyp Surgical History H/O breast surgery H/O hernia repair H/O total hysterectomy History of colonoscopy History of carpal tunnel surgery Family History Mother Hypertension Diabetes Malignant lymphoma Father Myocardial infarct Hypertension Brother Hypertension Social History Household Members: None Housing: House Are you a primary caregiver assisted living to a significant other at home: No Do you presently have visiting nurse or other home services: No Alcohol intake: never Patient Tobacco Use Status: Never used Tobacco Review of Systems Musc Reports myalgias, Reports arthralgias and Reports joint swelling Physical Exam Vital Signs: Last Vital Signs BP 142/7 H 09/10/24 13:57 BMI result Body Mass Index 26.6 Const General: cooperative, healthy appearing and comfortable Nutritional Appearance: average body habitus Orientation/consciousness: patient oriented x3 Limitations: ambulation with walker HEENT Head: Yes normocephalic and Yes atraumatic Mouth: moist mucous membranes Resp Effort & Inspection: normal respiratory effort and able to speak in complete sentences Auscultation: clear to auscultation bilaterally Cardio Rate: regular rate Rhythm: regular rhythm Skin Other: Multiple telangiectasias Neuro General: patient oriented x3 Extrem Other: Bilateral sclerodactyly Very minimal skin thickening on fingers Normal nailfold capillaroscopy No active synovitis No digital ulcers today Significantly reduced right shoulder abduction due to (known significant rotator cuff tendinopathy and muscle atrophy) Left knee warmth and swelling Assessment & Plan Assessment & Plan (1) CREST (calcinosis, Raynaud's phenomenon, esophageal dysfunction, sclerodactyly, telangiectasia): Comment: mild sclerodactyly; ++ DIAMANTE centromere++RF , CCP negative. 01/2023-Raynaud's, telangiectasias, esophageal dysmotility, Cutaneous calcifications removed from t he fingertips of the left hand. History of synovitis in hands - methotrexate 7 tabs weekly, 1mg folic acid daily, 3mg prednisone daily and plaquenil 400mg po daily. Previously on leflunomide discontinued around 06/2022 due to weight loss. Code(s): M34.1 - CR(E)ST syndrome Category: Medical Plan: This is an 83-year-old female with crest syndrome who presents for follow-up. On hydroxychloroquine 300 mg daily and prednisone 3 mg daily. She cut her finger and had a wound on the right 3rd digital tip it is improving. Continue with amlodipine 5 mg daily. Start aspirin 81 mg daily for 1 month, may improve blood flow and speed up healing Reduce prednisone to 1 mg daily Continue hydroxychloroquine 300 mg daily Discussed esophageal dysmotility and GERD. Advised patient to increase her omeprazole to 40 mg a day and take it 30 minutes before breakfast. Sleep elevated and consider buying a wedge pillow We discussed screening for ILD and pulmonary hypertension. 2D echo done 01/2023 was unremarkable. Patient could not tolerate PFTs in the past. HRCT chest did not show ILD Follow-up in 4 months (2) [facility] use of drug: Code(s): Z79.899 - Other intermodal dispatcher (current) drug therapy Category: Medical Plan: Patient aware of risk of retinopathy associated with hydroxychloroquine. She follows up regularly with designer. She states that she was evaluated by Dr. Beck and cleared to continue hydroxychloroquine. (3) Osteopenia: Code(s): M85.80 - Other specified disorders of bone density and structure, unspecified site Category: Medical Qualifiers: Osteopenia location: multiple sites Qualified Code(s): M85.89 - Other specified disorders of bone density and structure, multiple sites Plan: Per notes. Patient has been on ibandronate since 2017. She remains on ibandronate. Advised patient to discontinue alendronate. Repeat DEXA 12/2024 (4) Hepatic cyst: Code(s): K76.89 - Other specified diseases of liver Category: Medical Plan: CT chest showed a septated hepatic cysts. Ordered MRCP no better characterize the lesion Plan I spent 30 minutes reviewing patient's chart, evaluating patient, ordering diagnostic workup, counseling patient and documenting in the chart Orders: Orders MR MRCP Today K76.89 - Other specified diseases of liver XR DEXA axial skeleton 12/08/24 M81.0 - Age-related osteoporosis without current pathological fracture Medications: Changed From omeprazole 20 mg PO DAILY To omeprazole take 30 minutes before breakfast 40 mg PO DAILY 90 caps 1RF Coding Level of Care Code Est Pt Level 4 (90015) Complex EM visit Add On G2211 Diagnoses CREST (calcinosis, Raynaud's phenomenon, esophageal dysfunction, sclerodactyly, telangiectasia) M34.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
[2024-09-10 13:57] VITALS: BP 142/7; BMI 26.6
== END 2024-09-10 14:32 | disposition home or self-care (01) ==
PROVIDERS: PCP Physician Assistant Medical; Visit Provider Student in an Organized Health Care Education/Training Program
DX: M34.1 CR(E)ST syndrome (principal); Z79.899 Other long term (current) drug therapy; M85.89 Other specified disorders of bone density and structure, multiple sites; K76.89 Other specified diseases of liver
CPT/HCPCS: 99214; G2211

== ENCOUNTER → 2024-09-10 13:43 | Outpatient (BNVA) | payer MEDICARE, SELFPAY | PROVIDERS: PCP Physician Assistant Medical; Visit Provider Student in an Organized Health Care Education/Training Program | DX: M34.1 CR(E)ST syndrome (principal); M85.89 Other specified disorders of bone density and structure, multiple sites; K76.89 Other specified diseases of liver; Z79.899 Other long term (current) drug therapy | CPT/HCPCS: 99212 ==

== ENCOUNTER → 2024-09-18 13:50 | Outpatient (BNV) | payer MEDICARE, SELFPAY | PROVIDERS: PCP Family Medicine; Visit Provider Radiology Diagnostic Radiology | DX: K76.89 Other specified diseases of liver (principal) | CPT/HCPCS: 74183 ==

== ENCOUNTER 2024-09-18 13:51 | Outpatient (REF) | payer MEDICARE, SELFPAY ==
--- NOTE | ~2024-09-18 | MR_ITS ---
EXAMINATION: MRI Abdomen without and with contrast HISTORY: K76.89 - Other specified diseases of liver COMPARISON: None TECHNIQUE: Axial in and out of phase T1-weighted gradient echo, axial diffusion weighted, and axial and coronal haste T2 with fat saturation images were obtained through the abdomen. Subsequently, fat suppressed axial and coronal T1-weighted images were obtained after the intravenous administration of 6 mL Gadavist. FINDINGS: There is no significant signal loss within the liver on opposed phase imaging to suggest steatosis. There is a 5.2 x 4.8 x 4.6 cm septated cyst in the segment VIII of the liver. There may be additional punctate cysts. There is no enhancing mass. The hepatic and portal veins are patent. There is no intra or extrahepatic biliary ductal dilatation. There is cholelithiasis. The pancreas, spleen, and adrenals are unremarkable. There is a 2.6 cm cyst at the upper pole of the right kidney. Additional subcentimeter cysts are noted bilaterally. No retroperitoneal lymphadenopathy or ascites is identified in the upper abdomen. The patient is status post T11-12 fusion with pedicle screws. 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 Cholelithiasis. Electronically signed by: Carlos Neal MD 09/18/2024 03:39 PM [facility] [place], [place]
--- OUTSIDE RECORDS SUMMARY | 2024-09-18 14:00 | XMS_ITS | Clinical Summary ---
Author Organization Unknown Care Team Providers Care Director Fixed Income Name Role Phone JONAS DO, DANIA Unavailable Unavailable PENDALVAROS LUBE WORKER, GUNNAR Unavailable Unavailable STARSIAK OT, ALEXEI Unavailable Unavailabl pablo LETEMONICA ALLERGIST/PEDIATRIC PULMONOLOGIST, CHRISTIANO Unavailable Unavailable BART RN, PEG Unavailable Unavailable EDSON PT, JALEEL Unavailable Unavailable Payers Payer Name Policy Type Policy Number Effective Date Expira tion Date MEDICARE.NGS.PDGM [id number] Problems Condition Name Condition Details Condition Category Status Onset Date Resolution Date Last Treatment Date Treating Clinician Comments ENCOUNTER FOR OTHER ORTHOPEDIC AFTERCARE Active 11-04 00:00: 00 OTHER CHRONIC PAIN Active 2022-09 00:00: 00 SPINAL STENOSIS, 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 Active 2022-09 00:00: 00 RADICULOPATH Y, THORACOLUMBA R REGION Active 10-18 00:00: 00 AGE-RELATED OSTEOPOROSIS 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 FRACTURE Active 2022-09 00:00: 00 ESSENTIAL (PRIMARY) HYPERTENSION Active 2022-09 00:00: 00 PRIMARY OSTEOARTHRIT IS, RIGHT SHOULDER Active 2022-09 00:00: 00 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 Active 2022-09 00:00: 00 OTHER SYSTEMIC SCLEROSIS Active 2022-09 00:00: 00 ANXIETY DISORDER, UNSPECIFIED Active 2022-09 00:00: 00 RHEUMATOID ARTHRITIS, UNSPECIFIED Active 2022-09 00:00: 00 HYPERLIPIDEM IA, UNSPECIFIED Active 2022-09 00:00: 00 UNSPECIFIED GLAUCOMA Active 2022-09 00:00: 00 UNSPECIFIED CATARACT Active 2022-09 00:00: 00 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 Active 2022-09 00:00: 00 CARPAL TUNNEL SYNDROME, UNSPECIFIED UPPER LIMB Active 2022-09 00:00: 00 VITAMIN D DEFICIENCY, UNSPECIFIED Active 2022-09 00:00: 00 ATROPHY OF VULVA Active 2022-09 00:00: 00 CONSTIPATION , UNSPECIFIED Active 2022-09 00:00: 00 ALLERGIC RHINITIS, UNSPECIFIED Active 2022-09 00:00: 00 GASTRO-ESOPH AGEAL REFLUX DISEASE WITHOUT ESOPHAGITIS Active 2022-09 00:00: 00 PURE HYPERCHOLEST EROLEMIA, UNSPECIFIED Active 2022-09 00:00: 00 ARTHRODESIS STATUS Active 2022-09 00:00: 00 HISTORY OF FALLING Active 2022-09 00:00: 00 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 Active 2022-09 00:00: 00 RETIREMENT (CURRENT) USE OF OPIATE ANALGESIC Active 2022-09 00:00: 00 PERSONAL HISTORY OF COLONIC POLYPS Active 2022-09 00:00: 00 Allergies, Adverse Reactions, Alerts Allergy Name Allergy Type Status Severity Reaction(s) Onset Date Inactive Date Treating Clinician Comments ITRACONAZOLE Propensity to adverse reactions Active 2022-09 13:38: 01 TRIMETHOPRIM Propensity to adverse reactions Active 2022-09 13:38: 08 BACTRIM Propensity to adverse reactions Active 11-04 13:36: 11 SPORNAX Propensity to adverse reactions Active 11-05 12:47: 31 Medications Ordered Medication Name Filled Medication Name Start Date Stop Date Current Medication? Ordering Clinician Indication Dosage Frequency Signature (SIG) Comments Components prednisone 1 mg tablet 2022-09 00:00: 00 12-04 23:59 :00 No [id number] STEROID 4 mg DAILY 4 mg DAILY (route: oral) Med Classific ation: Endocrine amlodipine 5 mg tablet 2022-09 00:00: 00 Yes [id number] HTN 5 mg DAILY 5 mg YULIA Y (route: oral) Med Classific ation: Cardiovas cular Therapy Agents gabapentin 100 mg capsule 2022-09 00:00: 00 09-30 23:59 :00 No [id number] NERVE PAIN 100 mg 2 TIMES DAILY 100 mg 2 TIMES DAILY (route: oral) Med Classific ation: Central Nervous System Agents ibandronate 150 mg tablet 2022-09 00:00: 00 09-07 00:00 :00 No [id number] Per instruc tions Per instructio ns (route: oral) Med Classific ation: Endocrine methotrexat e sodium 2.5 mg tablet 2022-09 00:00: 00 09-07 00:00 :00 No [id number] Per instruc tions Per instructio ns (route: oral) Med Classific ation: Antineopl astics Colace 100 mg capsule 2022-09 00:00: 00 Yes [id number] STOOL SOFTNER 100 mg 2 TIMES DAILY 100 mg 2 TIMES DAILY (route: oral) Med Classific ation: Gastroint estinal Therapy Agents Flonase Allergy Relief 50 mcg/actuati on nasal spray,suspe nsion 2022-09 00:00: 00 Yes [id number] ALLERGYS 2 spray 2 TIMES DAILY 2 spray 2 TIMES DAILY (route: nasal) Med Classific ation: Respirato ry Therapy Agents folic acid 1 mg tablet 2022-09 00:00: 00 12-04 23:59 :00 No [id number] SUPPLEMENT 1 mg DAILY 1 mg DAILY (route: oral) Med Classific ation: Electroly te Balance-N utritiona l Products Lipitor 40 mg tablet 2022-09 00:00: 00 12-04 23:59 :00 No [id number] HIGH CHOLESTEROL 40 mg BEDTIME 40 mg BEDTIME (route: oral) Med Classific ation: Cardiovas cular Therapy Agents lisinopril 40 mg tablet 2022-09 00:00: 00 Yes [id number] HTN 40 mg DAILY 40 mg DAILY (route: oral) Med Classific ation: Cardiovas cular Therapy Agents metoprolol tartrate 25 mg tablet 2022-09 00:00: 00 10-07 23:59 :00 No [id number] HTN 12.5 mg 2 TIMES DAILY 12.5 mg 2 TIMES DAILY (route: oral) Med Classific ation: Cardiovas cular Therapy Agents Miralax 17 gram/dose oral powder 2022-09 00:00: 00 Yes [id number] CONSTIPATIO N 17 gram DAILY 17 gram DAILY (route: oral) Med Classific ation: Gastroint estinal Therapy Agents omeprazole 40 mg capsule,del ayed release 2022-09 00:00: 00 12-04 23:59 :00 No [id number] GERD 40 mg DAILY 40 mg DAILY (route: oral) Med Classific ation: Gastroint estinal Therapy Agents Tylenol 325 mg capsule 2022-09 00:00: 00 Yes [id number] PAIN MED 975 mg 3 TIMES DAILY 975 mg 3 TIMES DAILY (route: oral) Med Classific ation: Analgesic , Anti-infl ammatory or Antipyret ic Vitamin B-12 1,000 mcg tablet 2022-09 00:00: 00 12-04 23:59 :00 No [id number] SUPPLEMENT 1000 mcg DAILY 1000 mcg DAILY (route: oral) Med Classific ation: Electroly te Balance-N utritiona l Products gabapentin 100 mg capsule 09-27 00:00: 00 Yes [id number] NERVE PAIN 2 capsule 2 TIMES DAILY 2 capsule 2 TIMES DAILY (route: oral) Alternate Route: BY MOUTH. Med Classific ation: Central Nervous System Agents metoprolol succinate ER 25 mg tablet,exte nded release 24 hr 10-07 00:00: 00 12-04 23:59 :00 No [id number] LOWERS BLOOD PRESSURE 0.5 tablet DAILY 0.5 tablet DAILY (route: oral) Med Classific ation: Cardiovas cular Therapy Agents hydroxychlo roquine 200 mg tablet - 00:00: 00 Yes [id number] ARTHRITIS 1 tablet 2 TIMES DAILY 1 tablet 2 TIMES DAILY (route: oral) Med Classific ation: Anti-Infe ctive Agents ibandronate 150 mg tablet 3- 00:00: 00 Yes [id number] OSTEOPOROSI S 1 tablet MONTHLY 1 tablet MONTHLY (route: oral) Med Classific ation: Endocrine hydrochloro thiazide 25 mg tablet 2-15 00:00: 00 Yes [id number] BP 1 tablet DAILY 1 tablet DAILY (route: oral) Alternate Route: BY MOUTH. Med Classific ation: Cardiovas cular Therapy Agents omeprazole 20 mg capsule,del ayed release 12-04 00:00: 00 Yes [id number] GERD 1 capsule DAILY 1 capsule DAILY (route: oral) Med Classific ation: Gastroint estinal Therapy Agents prednisone 1 mg tablet 12-04 00:00: 00 Yes [id number] STEROID 3 tablet DAILY 3 tablet DAILY (route: oral) Med Classific ation: Endocrine Immunizations Ordered Immunization Name Filled Immunization Name Date Status Comments Refusal Reason INFLUENZA, TIV (INACTIVATED) 2023-06-14 00:00:00 BOOSTER -COVID-19 VACCINE, COVID-19 VACCINE 2021-08-02 00:00:00 DOSE #2, COVID-19 VACCINE 2020-12-29 00:00:00 DOSE #1, COVID-19 VACCINE 2020-12-08 00:00:00 Vital Signs Vital Name Observation Time Observation Value Commen ts Temperature 2024-01-02 20:01:00.000 97.6 [degF] Temperature 2023-12-31 10:44:00.000 97.1 [degF] Temperature 2023 11:53:00.000 97.6 [degF] Temperature 2023-12-20 15:01:00.000 96.9 [degF] Temperature 2023-12-17 11:16:00.000 97.2 [degF] Temperature 2023-12-12 11:15:00.000 97.8 [degF] Temperature 2023-12-06 14:49:00.000 97.2 [degF] Temperature 2023-12-03 12:18:00.000 96.9 [degF] Temperature 2023-12-03 10:45:00.000 97.7 [degF] Temperature 2023-11-29 11:14:00.000 97.6 [degF] Temperature 2023-11-26 11:00:00.000 97.7 [degF] Temperature 2023-11-22 14:21:00.000 97 [degF] Temperature 2023-11-22 11:31:00.000 97.7 [degF] Temperature 2023-11-18 11:20:00.000 96.7 [degF] Temperature 2023-11-14 21:08:00.000 97.4 [degF] Temperature 2023-11-14 15:21:00.000 97.1 [degF] Temperature 2023-11-12 10:29:00.000 98.1 [degF] Temperature 2023-11-08 14:20:00.000 97.3 [degF] Temperature 2023-11-06 11:25:00.000 97.1 [degF] Pulse 2024-01-02 20:01:00.000 72 /min Pulse 2023-12-31 10:44:00.000 76 /min Pulse 2023 11:53:00.000 61 /min Pulse 2023-12-20 15:02:00.000 70 /min Pulse 2023-12-17 11:16:00.000 63 /min Pulse 2023-12-12 11:15:00.000 73 /min Pulse 2023-12-06 14:49:00.000 78 /min Pulse 2023-12-03 12:18:00.000 60 /min Pulse 2023-12-03 10:45:00.000 62 /min Pulse 2023-11-29 11:14:00.000 78 /min Pulse 2023-11-26 11:00:00.000 81 /min Pulse 2023-11-22 14:21:00.000 76 /min Pulse 2023-11-22 11:31:00.000 60 /min Pulse 2023-11-18 11:20:00.000 76 /min Pulse 2023-11-14 21:08:00.000 85 /min Pulse 2023-11-14 15:21:00.000 78 /min Pulse 2023-11-12 10:29:00.000 78 /min Pulse 2023-11-08 14:20:00.000 74 /min Pulse 2023-11-06 11:25:00.000 76 /min O2 Saturation (%) 2024-01-02 20:01:00.000 97 % O2 Saturation (%) 2023 11:53:00.000 99 % O2 Saturation (%) 2023-12-17 11:16:00.000 97 % O2 Saturation (%) 2023-12-12 11:15:00.000 98 % O2 Saturation (%) 2023-12-03 10:45:00.000 99 % O2 Saturation (%) 2023-11-26 11:00:00.000 98 % O2 Saturation (%) 2023-11-22 11:31:00.000 96 % O2 Saturation (%) 2023-11-18 11:20:00.000 98 % O2 Saturation (%) 2023-11-14 21:08:00.000 97 % O2 Saturation (%) 2023-11-12 10:29:00.000 97 % O2 Saturation (%) 2023-11-06 11:25:00.000 98 % Respirations 2024-01-02 20:01:00.000 18 /min Respirations 2023-12-31 10:44:00.000 16 /min Respirations 2023 11:53:00.000 18 /min Respirations 2023-12-20 15:01:00.000 18 /min Respirations 2023-12-17 11:16:00.000 18 /min Respirations 2023-12-12 11:15:00.000 18 /min Respirations 2023-12-06 14:49:00.000 18 /min Respirations 2023-12-03 12:18:00.000 16 /min Respirations 2023-12-03 10:45:00.000 18 /min Respirations 2023-11-29 11:14:00.000 18 /min Respirations 2023-11-26 11:00:00.000 18 /min Respirations 2023-11-22 14:21:00.000 18 /min Respirations 2023-11-22 11:31:00.000 18 /min Respirations 2023-11-18 11:20:00.000 18 /min Respirations 2023-11-14 21:08:00.000 18 /min Respirations 2023-11-14 15:21:00.000 18 /min Respirations 2023-11-12 10:29:00.000 18 /min Respirations 2023-11-08 14:20:00.000 18 /min Respirations 2023-11-06 11:25:00.000 18 /min Systolic Blood Pressure 2024-01-02 20:01:00.000 118 mm [Hg] Systolic Blood Pressure 2023-12-31 10:44:00.000 116 mm [Hg] Systolic Blood Pressure 2023 11:53:00.000 112 mm [Hg] Systolic Blood Pressure 2023-12-20 15:01:00.000 116 mm [Hg] Systolic Blood Pressure 2023-12-17 11:16:00.000 130 mm [Hg] Systolic Blood Pressure 2023-12-12 11:15:00.000 114 mm [Hg] Systolic Blood Pressure 2023-12-06 14:49:00.000 122 mm [Hg] Systolic Blood Pressure 2023-12-03 12:18:00.000 138 mm [Hg] Systolic Blood Pressure 2023-12-03 10:45:00.000 124 mm [Hg] Systolic Blood Pressure 2023-11-29 11:14:00.000 126 mm [Hg] Systolic Blood Pressure 2023-11-26 11:00:00.000 124 mm [Hg] Systolic Blood Pressure 2023-11-22 14:21:00.000 102 mm [Hg] Systolic Blood Pressure 2023-11-22 11:31:00.000 122 mm [Hg] Systolic Blood Pressure 2023-11-18 11:20:00.000 116 mm [Hg] Systolic Blood Pressure 2023-11-14 21:08:00.000 114 mm [Hg] Systolic Blood Pressure 2023-11-14 15:21:00.000 122 mm [Hg] Systolic Blood Pressure 2023-11-12 10:29:00.000 110 mm [Hg] Systolic Blood Pressure 2023-11-08 14:20:00.000 122 mm [Hg] Systolic Blood Pressure 2023-11-06 11:25:00.000 124 mm [Hg] Diastolic Blood Pressure 2024-01-02 20:01:00.000 74 mm [Hg] Diastolic Blood Pressure 2023-12-31 10:44:00.000 64 mm [Hg] Diastolic Blood Pressure 2023 11:53:00.000 76 mm [Hg] Diastolic Blood Pressure 2023-12-20 15:01:00.000 68 mm [Hg] Diastolic Blood Pressure 2023-12-17 11:16:00.000 62 mm [Hg] Diastolic Blood Pressure 2023-12-12 11:15:00.000 68 mm [Hg] Diastolic Blood Pressure 2023-12-06 14:49:00.000 70 mm [Hg] Diastolic Blood Pressure 2023-12-03 12:18:00.000 68 mm [Hg] Diastolic Blood Pressure 2023-12-03 10:45:00.000 70 mm [Hg] Diastolic Blood Pressure 2023-11-29 11:14:00.000 72 mm [Hg] Diastolic Blood Pressure 2023-11-26 11:00:00.000 82 mm [Hg] Diastolic Blood Pressure 2023-11-22 14:21:00.000 70 mm [Hg] Diastolic Blood Pressure 2023-11-22 11:31:00.000 60 mm [Hg] Diastolic Blood Pressure 2023-11-18 11:20:00.000 74 mm [Hg] Diastolic Blood Pressure 2023-11-14 21:08:00.000 68 mm [Hg] Diastolic Blood Pressure 2023-11-14 15:21:00.000 60 mm [Hg] Diastolic Blood Pressure 2023-11-12 10:29:00.000 60 mm [Hg] Diastolic Blood Pressure 2023-11-08 14:20:00.000 78 mm [Hg] Diastolic Blood Pressure 2023-11-06 11:25:00.000 70 mm [Hg] Plan of Treatment Planned Activity Planned Date Details Comments Future Scheduled Test RN TO OBSE RVE, ASSESS, EVALUATE, AND DEVELOP AN INDIVIDUALIZED PLAN OF CARE. AGENCY MAY ACCEPT ORDERS FROM CONSULTING PHYSICIANS. REGISTERED NURSETO OBSERVE AND ASSESS/LICENSED PRACTICAL NURSE TO OBSERVE FOR RISK FOR FALLS AND INSTRUCT IN FALL PREVENTION, HOME SAFETY, MEDICATION MANAGEMENT, INFECTION PREVENTION, AND NUTRITION MANAGEMENT. REGISTERED NURSE/LICENSED PRACTICAL NURSE MAY PERFORM O2 SATURATION LEVEL ON ADMISSION AND PRN FOR RN TO ASSESS/LUBE WORKER TO OBSERVE PATIENT, WITH NOTIFICATION TO THE PHYSICIAN IF SATURATION IS 90% IN THE ABSENCE OF MORE SPECIFIC PARAMETERS FROM THE PHYSICIAN. AGENCY MAY PERFORM A RESUMPTION OF CARE VISIT FOLLOWING ANY HOSPITAL ADMISSION. REGISTERED NURSE/LICENSED PRACTICAL NURSE TO MONITOR CO-MORBID CONDITIONS LISTED ON THE PLAN OF CARE AND ANY NEW CONDITIONS THAT PRESENT THEMSELVES DURING THIS EPISODE TO IDENTIFY CHANGES AND INTERVENE TO MINIMIZE COMPLICATIONS. [code = RN TO OBSERVE, ASSESS, EVALUATE, AND DEVELOP AN INDIVIDUALIZED PLAN OF CARE. AGENCY MAY ACCEPT ORDERS FROM CONSULTING PHYSICIANS. REGISTERED NURSETO OBSERVE AND ASSESS/LICENSED PRACTICAL NURSE TO OBSERVE FOR RISK FOR FALLS AND INSTRUCT IN FALL PREVENTION, HOME SAFETY, MEDICATION MANAGEMENT, INFECTION PREVENTION, AND NUTRITION MANAGEMENT. REGISTERED NURSE/LICENSED PRACTICAL NURSE MAY PERFORM O2 SATURATION LEVEL ON ADMISSION AND PRN FOR RN TO ASSESS/LUBE WORKER TO OBSERVE PATIENT, WITH NOTIFICATION TO THE PHYSICIAN IF SATURATION IS 90% IN THE ABSENCE OF MORE SPECIFIC PARAMETERS FROM THE PHYSICIAN. AGENCY MAY PERFORM A RESUMPTION OF CARE VISIT FOLLOWING ANY HOSPITAL ADMISSION. REGISTERED NURSE/LICENSED PRACTICAL NURSE TO MONITOR CO-MORBID CONDITIONS LISTED ON THE PLAN OF CARE AND ANY NEW CONDITIONS THAT PRESENT THEMSELVES DURING THIS EPISODE TO IDENTIFY CHANGES AND INTERVENE TO MINIMIZE COMPLICATIONS.] Future Scheduled Test MEDICATION MANAGEMENT; REGISTERED NURSE/LICENSED PRACTICAL NURSE TO REVIEW MEDICATIONS FOR INTERACTIONS, EFFECTIVENESS OF DRUG THERAPY, AND SIGNS/SYMPTOMS OF ADVERSE REACTIONS. MAY INSTRUCT AND REINFORCE MEDICATION TEACHING RELATED TO THE USE OF MEDICATIONS, DOSAGE, FREQUENCY, PURPOSE, SIDE EFFECTS, AND TO REPORT COMPLICATIONS. [code = MEDICATION MANAGEMENT; REGISTERED NURSE/LICENSED PRACTICAL NURSE TO REVIEW MEDICATIONS FOR INTERACTIONS, EFFECTIVENESS OF DRUG THERAPY, AND SIGNS/SYMPTOMS OF ADVERSE REACTIONS. MAY INSTRUCT AND REINFORCE MEDICATION TEACHING RELATED TO THE USE OF MEDICATIONS, DOSAGE, FREQUENCY, PURPOSE, SIDE EFFECTS, AND TO REPORT COMPLICATIONS.] Future Scheduled Test RISK FOR H OSPITALIZATION; REGISTERED NURSE TO ASSESS /TEACH, LICENSED PRACTICAL NURSE TO OBSERVE/TEACH PATIENT/CAREGIVER ON RISK FOR HOSPITALIZATION/EMERGENCY ROOM VISITS, TEACH SIGNS AND SYMPTOMS THAT PUT PATIENT AT RISK, WHEN TO NOTIFY NURSE/PHYSICIAN OF COMPLICATIONS/DECLINE, AND WHEN TO CALL 911. [code = RISK FOR HOSPITALIZATION; REGISTERED NURSE TO ASSESS /TEACH, LICENSED PRACTICAL NURSE TO OBSERVE/TEACH PATIENT/CAREGIVER ON RISK FOR HOSPITALIZATION/EMERGENCY ROOM VISITS, TEACH SIGNS AND SYMPTOMS THAT PUT PATIENT AT RISK, WHEN TO NOTIFY NURSE/PHYSICIAN OF COMPLICATIONS/DECLINE, AND WHEN TO CALL 911.] Future Scheduled Test PAIN MANAG EMENT; REGISTERED NURSE TO ASSESS AND TEACH/LICENSED PRACTICAL NURSE TO OBSERVE AND TEACH AND PROVIDE EDUCATION ON PAIN MANAGEMENT TECHNIQUES. [code = PAIN MANAGEMENT; REGISTERED NURSE TO ASSESS AND TEACH/LICENSED PRACTICAL NURSE TO OBSERVE AND TEACH AND PROVIDE EDUCATION ON PAIN MANAGEMENT TECHNIQUES.] Future Scheduled Test FALL REDUC TION MANAGEMENT; REGISTERED NURSE TO ASSESS AND TEACH/LICENSED PRACTICAL NURSE TO OBSERVE AND TEACH ON EDUCATION AND INTERVENTION TO IDENTIFY FALL RISK FACTORS SUCH MEDICATIONS THAT MAY CAUSE DIZZINESS, CHRONIC DISEASES, PSYCHOLOGICAL FACTORS, AND EMPOWER/EDUCATE PATIENT/CAREGIVER TO MINIMIZE FALL RISK. [code = FALL REDUCTION MANAGEMENT; REGISTERED NURSE TO ASSESS AND TEACH/LICENSED PRACTICAL NURSE TO OBSERVE AND TEACH ON EDUCATION AND INTERVENTION TO IDENTIFY FALL RISK FACTORS SUCH MEDICATIONS THAT MAY CAUSE DIZZINESS, CHRONIC DISEASES, PSYCHOLOGICAL FACTORS, AND EMPOWER/EDUCATE PATIENT/CAREGIVER TO MINIMIZE FALL RISK.] Future Scheduled Test AGENCY MAY PERFORM A RESUMPTION OF CARE VISIT FOLLOWING ANY HOSPITAL ADMISSION. OCCUPATIONAL THERAPY TO EVALUATE, ASSESS, AND MONITOR, PROVIDE SKILLED THERAPEUTIC INTERVENTION, ACTIVITY, EDUCATION, AND TRAINING TO ADDRESS; BATHING/SHOWERING (OT) DRESSING (OT) MODIFIED CARINE INDEX (OT) OXYGEN SATURATION (OT); NOTIFY MD IF O2 SATS BELOW 90% AFTER 10 MIN OF REST PAIN MANAGEMENT (OT) FALL REDUCTION (OT) [code = AGENCY MAY PERFORM A RESUMPTION OF CARE VISIT FOLLOWING ANY HOSPITAL ADMISSION. OCCUPATIONAL THERAPY TO EVALUATE, ASSESS, AND MONITOR, PROVIDE SKILLED THERAPEUTIC INTERVENTION, ACTIVITY, EDUCATION, AND TRAINING TO ADDRESS; BATHING/SHOWERING (OT) DRESSING (OT) MODIFIED CARINE INDEX (OT) OXYGEN SATURATION (OT); NOTIFY MD IF O2 SATS BELOW 90% AFTER 10 MIN OF REST PAIN MANAGEMENT (OT) FALL REDUCTION (OT)] Future Scheduled Test AGENCY MAY PERFORM A RESUMPTION OF CARE VISIT FOLLOWING ANY HOSPITAL ADMISSION. PHYSICAL THERAPY TO EVALUATE, ASSESS AND MONITOR, PROVIDE SKILLED THERAPEUTIC INTERVENTION, ACTIVITY, EDUCATION, AND TRAINING TO ADDRESS: TRANSFER TRAINING (PT) GAIT TRAINING (PT) NEUROMUSCULAR RE-EDUCATION / BALANCE RETRAINING (PT) THERAPEUTIC EXERCISES (PT) OXYGEN SATURATION (PT). NOTIFY MD IF 02SATS BELOW 90% AFTER 10 MIN OF REST. PAIN MANAGEMENT (PT) ORTHOPEDIC SURGICAL AFTERCARE (PT) MAY TEACH PATIENT APPLICATION OF CRYOTHERAPY FOR PAIN AND/OR SWELLING UP TO 20 MIN AT A TIME OVER INCISION/JOINT LUMBAR LAMINECTOMY/FUSION SELF-MANAGEMENT (PT) HYPERTENSION SELF-MANAGEMENT (PT) IDENTIFY FALL RISK FACTORS AND ESTABLISH HOME EXERCISE PROGRAM TO MINIMIZE FALL RISK. MAY TEACH THE PATIENT FLOOR RECOVERY WHEN CLINICALLY APPROPRIATE (PT) [code = AGENCY MAY PERFORM A RESUMPTION OF CARE VISIT FOLLOWING ANY HOSPITAL ADMISSION. PHYSICAL THERAPY TO EVALUATE, ASSESS AND MONITOR, PROVIDE SKILLED THERAPEUTIC INTERVENTION, ACTIVITY, EDUCATION, AND TRAINING TO ADDRESS: TRANSFER TRAINING (PT) GAIT TRAINING (PT) NEUROMUSCULAR RE-EDUCATION / BALANCE RETRAINING (PT) THERAPEUTIC EXERCISES (PT) OXYGEN SATURATION (PT). NOTIFY MD IF 02SATS BELOW 90% AFTER 10 MIN OF REST. PAIN MANAGEMENT (PT) ORTHOPEDIC SURGICAL AFTERCARE (PT) MAY TEACH PATIENT APPLICATION OF CRYOTHERAPY FOR PAIN AND/OR SWELLING UP TO 20 MIN AT A TIME OVER INCISION/JOINT LUMBAR LAMINECTOMY/FUSION SELF-MANAGEMENT (PT) HYPERTENSION SELF-MANAGEMENT (PT) IDENTIFY FALL RISK FACTORS AND ESTABLISH HOME EXERCISE PROGRAM TO MINIMIZE FALL RISK. MAY TEACH THE PATIENT FLOOR RECOVERY WHEN CLINICALLY APPROPRIATE (PT)] Goal 2023-11-04 Patient Goal - TO BE PAIN FR EE Goal 2024-01-02 Patient Goal - TO BE PAIN FR EE Goal Provider Goal - A PLAN OF CARE WILL BE ESTABLISHED THAT MEETS THE PATIENTS NEEDS. PATIENT WILL DEMONSTRATE OXYGEN SATURATION WITHIN NORMAL LIMITS OR PATIENTS OPTIMAL LEVEL ESTABLISHED BY THE PHYSICIAN THROUGHOUT CARE. CHANGES TO CO-MORBID CONDITIONS AND ANY NEW CONDITIONS WILL BE IDENTIFIED AND REPORTED TO THE PHYSICIAN. Goal Provider Goal - PATIENT/CAREGIVER TO VERBALIZE, AND CONSISTENTLY DEMONSTRATE EFFECTIVE, SAFE MANAGEMENT OF MEDICATION INCLUDING KNOWLEDGE OF EFFECTIVENESS, POTENTIAL SIDE EFFECTS AND DRUG REACTIONS AND WHEN TO CONTACT THE APPROPRIATE CARE PROVIDER. PATIENT/CAREGIVER WILL BE ABLE TO VERBALIZE UNDERSTANDING OF MEDICATION REGIMEN AND ACCURATELY TAKE MEDICATIONS PRESCRIBED WITHOUT ADVERSE EFFECTS BY 01/04/24. Goal Provider Goal - PATIENT/CAREGIVER WILL VERBALIZE UNDERSTANDING OF SIGNS AND SYMPTOMS THAT PUT THE PATIENT AT RISK FOR HOSPITALIZATION /EMERGENCY ROOM VISITS, WHEN TO NOTIFY NURSE/PHYSICIAN OF COMPLICATIONS/DECLINE AND WHEN TO CALL 911. Goal Provider Goal - PATIENT / CAREGIVER WILL VERBALIZE / DEMONSTRATE UNDERSTANDING OF PAIN CONTROL MEASURES BY 01/04/24. Goal Provider Goal - PATIENT/CAREGIVER ABLE TO IDENTIFY FALL RISK FACTORS AND IMPLEMENT STRATEGIES TO MINIMIZE FALL RISK. PATIENT/CAREGIVER WILL VERBALIZE/DEMONSTRATE AN ABILITY TO ADHERE TO FALL REDUCTION SELF MANAGEMENT AND LIFE-STYLE CHANGES AT DISCHARGE. PERSONAL GOAL(S) STATED BY PATIENT/CAREGIVER WILL BE MET BY 01/04/24. Goal Provider Goal - OT STG: PATIENT WILL IMPROVE SHOWER TASKS TO CGA WITHIN 4 WEEKS OT LTG: PATIENT WILL DEMONSTRATE IMPROVED ABILITY TO PERFORM BATHING/SHOWERING FROM MIN A TO SUPERVISION WITHIN 8 WEEKS OT STG: PATIENT WILL IMPROVE TUB TRANSFER TO CGA WITHIN 4 WEEKA OT LTG: PATIENT WILL DEMONSTRATE IMPROVED ABILITY TO PERFORM BATH/SHOWER TRANSFER FROM MIN A TO SUPERVISION WITHIN 8 WEEKS OT STG: PATIENT WILL IMPROVE LB DRESSING TO CGA WITHIN 4 WEEKS OT LTG: PATIENT WILL DEMONSTRATE IMPROVED ABILITY TO PERFORM LOWER BODY DRESSING INCLUDING ITEM RETRIEVAL FROM MIN A TO INDEPENDENT WITHIN 8 WEEKS OT LTG: PATIENT WILL DEMONSTRATE IMPROVED INDEPENDENCE WITH ACTIVITIES OF DAILY LIVING (ADL) SKILLS EVIDENCED BY AN IMPROVEMENT IN MODIFIED CARINE INDEX SCORE FROM 86 TO 94 INDICATING DECREASED DEPENDENCY ON CAREGIVER ASSISTANCE WITHIN 8 WEEKS PATIENT WILL MAINTAIN OXYGEN SATURATION WITHIN PHYSICIAN ORDERED PARAMETERS THROUGHOUT THE EPISODE OF CARE. PATIENT WILL VERBALIZE UNDERSTANDING OF PAIN MANAGEMENT TECHNIQUES BY END OF EPISODE. PATIENT/CAREGIVER WILL BE ABLE TO IMPLEMENT OCCUPATIONAL THERAPY EDUCATION RECOMMENDATIONS SPECIFIC TO FALL REDUCTION FOR IMPROVED ADL/IADL COMPLETION AND HOME SAFETY BY END OF EPISODE. Goal Provider Goal - PT LTG: PATIENT WILL DEMONSTRATE IMPROVED TRANSFERS FROM SBA TO INDEPENDENT WITH RW WITHIN 9 WEEKS PT LTG: PATIENT WILL DEMONSTRATE IMPROVED AMBULATION FROM CGA TO INDEPENDENT WITH RW WITHIN 9 WEEKS PT LTG: PATIENT WILL DEMONSTRATE REDUCED FALL RISK EVIDENCED BY TUG TEST (CUT SCORE >11 SECONDS INDICATES INCREASED FALL RISK) IMPROVING FROM 42 SECONDS TO 15 SECONDS WITHIN 9 WEEKS PT STG: PATIENT WILL DEMONSTRATE INDEPENDENCE WITH BLE HEP WITHIN 9 WEEKS PT LTG: PATIENT WILL DEMONSTRATE INCREASED STRENGTH OF BLE FROM 3/5 TO 4/5 WITHIN 9 WEEKS IN ORDER TO IMPROVE GAIT AND TRANSFERS PATIENT WILL MAINTAIN OXYGEN SATURATION WITHIN PHYSICIAN ORDERED PARAMETERS THROUGHOUT EPISODE OF CARE PT GOAL: PATIENT/CAREGIVER WILL VERBALIZE UNDERSTANDING OF PAIN MANAGEMENT BY END OF EPISODE. PATIENT WILL DEMONSTRATE NORMAL HEALING FOLLOWING SURGERY WITH NO COMPLICATIONS BY END OF EPISODE. PT GOAL: PATIENT WILL DEMONSTRATE OPTIMAL OUTCOMES INCLUDING DECREASED PAIN AND INCREASED STRENGTH WITH NO COMPLICATIONS FOLLOWING LUMBAR LAMINECTOMY/FUSION BY END OF EPISODE. PT GOAL: PATIENT/CAREGIVER WILL BE ABLE TO IDENTIFY SIGNS OF EXACERBATION OF HYPERTENSION AND WILL VERBALIZE/DEMONSTRATE AN ABILITY TO ADHERE TO HYPERTENSION SELF-MANAGEMENT AND LIFE-STYLE CHANGES AT DISCHARGE. PATIENT/CAREGIVER WILL DEMONSTRATE ADHERENCE TO FALL REDUCTION SELF MANAGEMENT TO MINIMIZE FALL BY END OF EPISODE. Reason for Visit INDEPENDENT WITH USE OF ASSISTIVE DEVICE Encounters Start Date/Time End Date/Time Encounter Type Admission Type Attending [facility] Care Facility Care Department Encounter ID Discharge Date Discharge Status Discharge Condition Discharge Reason Percent Goals Met 2023-09-07 00:00:00 2024-01-02 00:00:00 Outpatient [facility] [id number] 2024-01-02 00:00:00 DISCHARGE TO HOME OR SELF CARE INDEPENDEN T WITH USE OF ASSISTIVE DEVICE HH OR PAL- GOALS MET 73.33
[2024-09-18] MEDS: gadobutroL 7.5 ML VIAL IVPUSH (14:53)
== END 2024-09-18 13:52 | disposition home or self-care (01) ==
LOC: HO.MRI 13:51
PROVIDERS: PCP Family Medicine; Visit Provider Student in an Organized Health Care Education/Training Program
DX: K76.89 Other specified diseases of liver (principal)
CPT/HCPCS: 74183; A9585

== ENCOUNTER 2025-01-05 13:10 | Outpatient (REF) | payer MEDICARE, SELFPAY ==
--- NOTE | ~2025-01-05 | MM_ITS ---
EXAMINATION: DXA BONE DENSITY AXIAL HISTORY: M81.0 - Age-related osteoporosis without current pathological fracture TECHNIQUE: [employer] Dual energy absorptiometry (DEXA) of the lumbar spine, total left hip, and femoral neck was performed. COMPARISON: There are no prior studies for comparison. FINDINGS: The bone mineral density of the lumbar spine is 1.230 with a T-score of 0.4, and a Z-score of 2.6. This is indicative of normal bone mineral density. The bone mineral density of the left total hip is 0.826 with a T-score of -1.4, and a Z-score of 1.1. This is indicative of osteopenia. The bone mineral density of the left femoral neck is 0.652 with a T-score of -2.8, and a Z-score of -0.2. This is indicative of osteoporosis. MM/XR DEXA axial skeleton IMPRESSION: Based on bone mineral density, and according to World Health Organization (WHO) criteria, the diagnosis is consistent with osteoporosis. All bone density values are in grams per centimeter squared (g/cm2). Statistically, 68% of repeat scans fall within 1 SD (+/- 0.010 g/cm2 for AP spine L1-L4) and 1 SD (+/- 0.012 g/cm2 for femur total) FRAX is a trademark of the [employer]'s [employer] Met[employer] Disease, a World Health Organization (WHO) Collaborating Center. Electronically signed by: Carlos Neal MD 01/06/2025 10:29 AM EDT
--- OUTSIDE RECORDS SUMMARY | 2025-01-05 15:14 | XMS_ITS | Clinical Summary ---
[facility] Organization [facility] Address [address] [place] [address] Care Team Providers Care Service Mechanic Name Role Phone Jackeline Tapia MD Primary Care Provider [phone] Surgical History Surgery Date Site/Laterality Comments COLONOSCOPY N/A PROCEDURE: HISTORICAL COLONOSCOPY CATARACT EXTRACTION PROCEDURE: HISTORICAL CATARACT REMOVAL OTHER SURGICAL HISTORY PROCEDURE: MS TOT ABD HYST W/PARAORTIC & PELVIC LYMPH NODE ROSEANNA HERNIA REPAIR N/A PROCEDURE: HISTORICAL HERNIA REPAIR/ING CARPAL TUNNEL RELEASE 10/26/2021 Left PROCEDURE: MS NEUROPLASTY &/TRANSPOS MEDIAN NRV CARPAL TUNNE; COMMENT: Dr. White Medical History Medical History Date Comments Essential (primary) hypertension DX:Essential (primary) hypertension Colon polyps DX:Colon polyps Constipation DX:Constipation Hyperlipidemia DX:Hyperlipidemi a Osteopenia DX:Osteopenia Allergic rhinitis due to pollen DX:Allergic rhinitis due to pollen Social History Tobacco Use Types Packs/Day Years Used Date Smoking Tobacco: Never Smokeless Tobacco: Never Alcohol Use Standard Drinks/Week Comments Never 0 (1 standard drink = 0.6 oz pur e alcohol) Comments Unknown Sex and Gender Information Value Date Recorded Sex Assigned at Not on file Legal Sex Female 10:42 AM EST Gender Identity Not on file Sexual Orientation Not on file Obstetrics History Last Filed Vital Signs Vital Sign Reading Time Taken Comments Blood Pressure 130/79 12/26/2022 11:27 AM EDT Pulse 75 12/26/2022 11:27 AM EDT Temperature - - Respiratory Rate - - Oxygen Saturation - - Inhaled Oxygen Concentration - - Weight 53.1 kg (117 lb) 01/18/2023 12:06 PM EDT Height 152.4 cm (5') 01/18/2023 12:06 PM EDT Body Mass Index 22.85 01/18/2023 12:06 PM EDT Plan of Treatment Health Maintenance Due Date Last Done Comments RSV Immunization Adult Patients (1 - 1-dose 75+ series) 2013 COVID-19 Vaccine (3 - Moderna risk series) 12/31/2020 12/03/2020, 11/05/2020 DTaP,Tdap,and Td Vaccines (2 - Td or Tdap) 03/05/2021 03/05/2011 Depression Screening 08/13/2022 Falls Risk Assessment 08/13/2022 Osteoporosis Screening (Bone Density Screening) 08/13/2022 Social Influencers of Health Screening 08/13/2022 Influenza Vaccine (Season Ended) 2025 06/16/2020, 06/29/2019, 05/27/2018, Additional history exists Pneumococcal Vaccine: 50+ Years Completed 01/09/2017, 10/26/2015, 09/09/2002 Zoster Vaccines Completed 09/11/2020, 08/09, 07/10/2020, Additional history exists HIB Vaccines Aged Out No longer eligi ble based on patient's age to complete this topic HPV Vaccines Aged Out No longer eligi ble based on patient's age to complete this topic Hepatitis A Vaccines Aged Out No long er eligible based on patient's age to complete this topic Hepatitis B Vaccines Aged Out No long er eligible based on patient's age to complete this topic IPV Vaccines Aged Out No longer eligi ble based on patient's age to complete this topic MMR Vaccines Aged Out No longer eligi ble based on patient's age to complete this topic Meningococcal ACWY Vaccine Aged Out N o longer eligible based on patient's age to complete this topic Meningococcal B Vaccine Aged Out No l onger eligible based on patient's age to complete this topic RSV Immunization Patients Under 20 months Aged Out No longer eligible based on patient's age to complete this topic Varicella Vaccines Aged Out No longer eligible based on patient's age to complete this topic Advance Directives Documents on File Type Date Recorded Patient Mixer Slagman Expl anation Health Care Decision (hx) 08/26/2023 [facility] Care Teams Service Mechanic Relationship Specialty Start Date End Date Jackeline Tapia MD [address] [place] [address] PCP - General Family Medicine 03/30/21
== END 2025-01-05 13:11 | disposition home or self-care (01) ==
LOC: HO.MAMMO 13:10
PROVIDERS: PCP Nurse Practitioner Family; Visit Provider Student in an Organized Health Care Education/Training Program
DX: M81.0 Age-related osteoporosis without current pathological fracture (principal)
CPT/HCPCS: 77080

== ENCOUNTER → 2025-01-05 13:30 | Outpatient (BNV) | payer MEDICARE, SELFPAY | PROVIDERS: PCP Nurse Practitioner Family; Visit Provider Radiology Diagnostic Radiology | DX: E28.39 Other primary ovarian failure (principal) | CPT/HCPCS: 77080 ==

== ENCOUNTER 2025-01-27 13:47 | Outpatient (AMB) | payer MEDICARE, SELFPAY ==
--- NOTE | 2025-01-27 13:48 | A.OFFVIS_ITS ---
Vital Signs 01/27/25 13:58 Height 5 ft Weight 140 lb 3.424 oz BMI 27.4 BP 140/74 H Blood Pressure Location Rt brachial Position Sitting Pulse 82 Pulse Source Pulse Oximeter Comment unable to read Intake Visit Reasons: [facility] Intake Note: Patient presents for [facility] follow up. Allergies itraconazole [From Sporanox] Allergy (Intermediate, Verified 01/27/25 13:53) hives sulfamethoxazole [From Bactrim] Allergy (Intermediate, Verified 01/27/25 13:53) Thrush trimethoprim [From Bactrim] Allergy (Intermediate, Verified 01/27/25 13:53) thrush Medication List - Last Reconciled 01/27/25 by Denisa Farr MD acetaminophen ER (Tylenol Arthritis Pain) 650 mg PO Q12H PRN amlodipine 5 mg PO DAILY fluticasone propionate 50 mcg/actuation (Allergy Relief (fluticasone)) 1 spray intranasal BID gabapentin 300 mg PO BID hydrochlorothiazide 12.5 mg PO DAILY hydroxychloroquine 300 mg (1.5 x 200 mg) PO DAILY ketoconazole 2% appl topical lisinopril 40 mg PO DAILY mirabegron ER (Myrbetriq) 25 mg PO DAILY omeprazole 40 mg PO DAILY prednisone 2 mg (2 x 1 mg) PO QAM HPI Comments Details: Patient is an 84-year-old female with hypertension, allergies, overactive bladder, GERD, polyarticular osteoarthritis status post spinal fusion, 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 Downey. At that time she was following up for her limited cutaneous sclerosis. She was doing reasonably well on hydroxychloroquine 300 mg daily, prednisone 2 mg daily and gabapentin 300 mg daily. She also was taking omeprazole 20 mg daily for her GERD. Due to her overall well appearance prednisone was decreased to 1 mg daily. Aspirin 81 mg was added for 1 month to improve blood flow and speed up healing to a cut on her right 3rd digital tip. There was no evidence of pulmonary hypertension or ILD Today, Patient doing well overall Was able to decrease her prednisone to 1mg without issue. Raynaud's is stable Also has calcinosis that drains periodically No SOB No falls or fractures Complaining of restless legs in the night Rheumatologic History: mild sclerodactyly; ++ DIAMANTE centromere++RF , CCP negative. 01/2023-Raynaud's, telangiectasias, esophageal dysmotility, Cutaneous calcifications removed from the fingertips of the left hand. History of synovitis in hands - methotrexate 7 tabs weekly, 1mg folic acid daily, 3mg prednisone daily and plaquenil 400mg po daily. Previously on leflunomide discontinued around 06/2022 due to weight loss. Ibandronate stopped Current Rheumatology Medication(s): Hydroxychloroquine 300mg daily Prednisone 1mg daily [facility] Medical History (Updated 01/27/25 @ 14:35 by Denisa Farr MD) Osteoporosis Constipation Cataract Vitamin D deficiency Anxiety Varicose veins of bilateral lower extremities with other complications Carpal tunnel syndrome Glaucoma [facility] systemic steroid user DJD (degenerative joint disease) Atrophic vulva Allergic rhinitis Essential hypertension Hypercholesteremia Colonic polyp Surgical History H/O breast surgery H/O hernia repair H/O total hysterectomy History of colonoscopy History of carpal tunnel surgery Family History Mother Hypertension Diabetes Malignant lymphoma Father Myocardial infarct Hypertension Brother Hypertension Social History Household Members: None Housing: House Are you a primary laboratory animal caretaker to a significant other at home: No Do you presently have visiting nurse or other home services: No Alcohol intake: never Patient Tobacco Use Status: Never used Tobacco Review of Systems Const Details: Review of Systems Constitutional: Denies fever, chills, weight loss ENT: Denies vision changes, eye pain or eye redness, dental caries, dry mouth GI: Denies nausea, vomiting, diarrhea, abdominal pain, change in BM Pulm: Denies SOB, [place], hemoptysis, wheezing Cards: Denies chest pain, palpitations Skin: Denies Raynaud's, rash, nail changes, photosensitivity, ADMITTED ATTORNEYS: Denies headaches, weakness, paresthesias, recurrent falls MSK: as per HPI All other systems reviewed and are unremarkable except noted above Physical Exam Vital Signs: Last Vital Signs Pulse 82 01/27/25 13:58 BP 140/74 H 01/27/25 13:58 BMI result Body Mass Index 27.4 Vital signs reviewed Physical Examination CONSTITUITIONAL Patient alert and cooperative. Well appearing and in no apparent painful distress HEENT Conjunctiva and sclera clear. ?Pupils equal round and reactive to light. ?No lymphadenopathy. ? CHEST/RESPIRATORY SYSTEM Normal respiratory effort and able to speak in complete sentences. ?Clear to auscultation bilaterally. ?No crackles, rales, rhonchi, wheezes heard. CARDIAC SYSTEM Regular rate and rhythm. ?3/6 systolic murmur ?Radial pulses intact bilaterally MSK Hands: ?Able to make a fist. No synovitis noted to the MCPs, PIPs or DIPs. ?No tenderness to palpation of these joints. Herbedens nodes Wrists: ?Full range of motion at the wrists without pain. ?No tenderness to palpation or synovitis noted to the wrists. Elbows: Full range of motion without pain. No tenderness, weakness, swelling, increased warmth or erythema. Shoulders: Full range of active range of motion without pain. No tenderness, weakness, swelling, increased warmth or erythema. Knees: ?Full range of motion. ?No tenderness, swelling, increased warmth or erythema. Crepitations Ankles: Full range of motion. ?No tenderness, swelling, increased warmth or erythema.? Feet: ?Negative squeeze test. ?No tenderness to palpation or swelling of the MTPs. Tender points:?No tenderness to palpation of the bilateral trapezius, supraspinatus, greater trochanters, anterior costochondral junctions, bilateral gluteal areas, bilateral suboccipital muscle insertions SKIN Skin intact without rashes. Abnl nailfold capilloroscopy Results Reviewed Results Reviewed: [facility] report reviewed from 08/2024 ECHO 01/2023 Conclusions: - Normal left ventricular size and systolic function. The visually estimated ejection fraction is between 65-70%. - Normal right ventricular cavity size and systolic function. - The left atrium is likely dilated. The right atrium is normal in size. - Aortic sclerosis without stenosis. - Tricuspid regurgitation envelope is inadequate for calculation of right ventricular systolic pressure. Normal right atrial pressure. CT Chest 06/2024 IMPRESSION: Prior granulomatous disease process. Histoplasmosis cannot be excluded. No acute airspace disease. Coronary artery disease and atherosclerosis disease. Delayed emptying suggesting esophageal dysmotility versus gastroesophageal reflux. Multilevel spondylosis resulting in multilevel grade 1 anterolisthesis. Status post posterior fusion T11-T12 with grade 1 anterolisthesis. 5 cm septated cystic lesion, right hepatic lobe. DEXA 12/2024 FINDINGS: The bone mineral density of the lumbar spine is 1.230 with a T-score of 0.4, and a Z-score of 2.6. This is indicative of normal bone mineral density. The bone mineral density of the left total hip is 0.826 with a T-score of -1.4, and a Z-score of 1.1. This is indicative of osteopenia. The bone mineral density of the left femoral neck is 0.652 with a T-score of -2.8, and a Z-score of -0.2. This is indicative of osteoporosis. Assessment & Plan Assessment & Plan (1) CREST (calcinosis, Raynaud's phenomenon, esophageal dysfunction, sclerodactyly, telangiectasia): Comment: mild sclerodactyly; ++ DIAMANTE centromere++RF , CCP negative. 01/2023-Raynaud's, telangiectasias, esophageal dysmotility, Cutaneous calcifications removed from the fingertips of the left hand. History of synovitis in hands - methotrexate 7 tabs weekly, 1mg folic acid daily, 3mg prednisone daily and plaquenil 400mg po daily. Previously on leflunomide discontinued around 06/2022 due to weight loss. 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 Currently in remission with no evidence of progression of her scleroderma. Raynaud's is under control with calcium channel lisy amlodipine. No ulcers noted. Had echo and CT done within the last 2 years without any evidence of pulmonary hypertension or ILD. Patient currently asymptomatic. We will recheck her echo and CT in 2025 Plan - Hydroxychloroquine 300mg daily - Patient to get ophtho appt - Conservative measures for management of Raynaud's and calcinosis - Follow up GI for hepatic cyst found incidentally on CT chest - RTC 5 months - Labs before visit: CBC, CMP, ESR, CRP, Vitamin D (2) Osteoporosis: Comment: DEXA 12/2024: AP spine 0.4, Left femur total -1.4, Left femur neck -2.8 DEXA AP spine 0.1, Left femur total -0.1, Left femur neck -2.2 Ibandronate. discontinued 09/2024 for drug holiday. Code(s): M81.0 - Age-related osteoporosis without current pathological fracture Category: Medical Qualifiers: Osteoporosis type: age-related Presence of current pathological fracture: without current pathological fracture Qualified Code(s): M81.0 - Age-related osteoporosis without current pathological fracture Plan: #Osteoporosis Patient on [facility] bisphosphonates and was given a drug holiday 09/2024 but bone density in the femur is worse when compared to 2022. I discussed switching to prolia vs weekly alendronate. Patient would prefer the alendronate. Alendronate has better efficacy for the hip than ibandronate Plan - Alendronate 70mg weekly - Vitamin D supplementation (3) Polyarticular osteoarthritis: Code(s): M15.9 - Polyosteoarthritis, unspecified Plan: #Polyarticular OA Patient with polyarticular osteoarthritis overall stable. Complaining of restless legs syndrome type symptoms we will change her gabapentin pregabalin because this gabapentin has not been effective Plan - Pregabalin 25mg bid - Stop gabapentin - Multivitamin with magnesium (4) Encounter for monitoring of hydroxychloroquine therapy: Code(s): Z51.81 - Encounter for therapeutic drug level monitoring; Z79.899 - Other [facility] (current) drug therapy Plan: #Long-term Use of Hydroxychloroquine Discussed with patient the risks and benefits of hydroxychloroquine in managing the rheumatic condition Benefits include: - Reduced pain, reduce mortality, maintenance of remission and reduction of flares Risks include: - GI upset, skin hyperpigmentation, retinal toxicity (especially after more than 5 years of use), myopathy Advised yearly ophthalmology visits. Last visit 2023. (5) Encounter for ongoing osteoporosis therapy, bisphosphonates: Code(s): M81.0 - Age-related osteoporosis without current pathological fracture; Z79.83 - [facility] (current) use of bisphosphonates Plan: #Long-term Use of Bisphosphonates Risks and benefits of bisphosphonates in the management of osteoporosis Benefits include improved bone density, decreased fracture risk Risks include atypical femoral fractures, GI upset, esophageal strictures Contraindicated in patients with a creatinine clearance < 30 to 35 ml/min Keep vitamin-D at least 35 ng/mL Plan I spent 32 minutes reviewing the record and labs, taking a history, examining the patient, discussing the treatment plan, ordering diagnostic work up and documenting in the medical record Orders: Orders Vitamin D 25-OH (D2 and D3) 5 Months E55.9 - Vitamin D deficiency, unspecified Complete Blood Count Auto Diff 5 Months M34.1 - CR(E)ST syndrome Comprehensive Met. Panel 5 Months M34.1 - CR(E)ST syndrome C Reactive Protein 5 Months M34.1 - CR(E)ST syndrome Erythrocyte Sedimentation Rate 5 Months M34.1 - CR(E)ST syndrome Medications: New alendronate 70 mg PO QWEEK 90 days 13 ea 1RF M81.0 - Age-related osteoporosis without current pathological fracture alendronate Take tablet once a week on empty stomach before any other medication. Wait 30 mins before taking your omeprazole. 70 mg PO QWEEK 90 days 13 ea 1RF M81.0 - Age-related osteoporosis without current pathological fracture pregabalin 25 mg PO BID 90 days 180 caps 1RF G25.81 - Restless legs syndrome Changed From hydroxychloroquine 300 mg (1.5 x 200 mg) PO DAILY 135 tabs 1RF M34.1 - CR(E)ST syndrome To hydroxychloroquine 300 mg (1.5 x 200 mg) PO DAILY 90 days 135 tabs 1RF M34.1 - CR(E)ST syndrome Discontinued prednisone Discontinued Reason: Doctor's Order 2 mg (2 x 1 mg) PO QAM 60 tabs 2RF M34.1 - CR(E)ST syndrome Coding Level of Care Code Est Pt Level 4 (26089) Complex EM visit Add On G2211 Diagnoses CREST (calcinosis, Raynaud's phenomenon, esophageal dysfunction, sclerodactyly, telangiectasia) M34.1 Age-related osteoporosis without current pathological fracture M81.0 Osteoporosis type: age-related Presence of current pathological fracture: without current pathological fracture Polyarticular osteoarthritis M15.9 Encounter for monitoring of hydroxychloroquine therapy Z51.81; Z79.899 Encounter for ongoing osteoporosis therapy, bisphosphonates M81.0; Z79.83
[2025-01-27 13:58] VITALS: BP 140/74; PULSE 82; BMI 27.4
--- OUTSIDE RECORDS SUMMARY | 2025-01-27 14:19 | XMS_ITS | Clinical Summary ---
[facility] Organization [facility] Address [address] [place] [address] Care Team Providers Care Chair Name Role Phone Jackeline Tapia MD Primary Care Provider [phone] Surgical History Surgery Date Site/Laterality Comments COLONOSCOPY N/A PROCEDURE: HISTORICAL COLONOSCOPY CATARACT EXTRACTION PROCEDURE: HISTORICAL CATARACT REMOVAL OTHER SURGICAL HISTORY PROCEDURE: CT TOT ABD HYST W/PARAORTIC & PELVIC LYMPH NODE ROSEANNA HERNIA REPAIR N/A PROCEDURE: HISTORICAL HERNIA REPAIR/ING CARPAL TUNNEL RELEASE 10/26/2021 Left PROCEDURE: CT NEUROPLASTY &/TRANSPOS MEDIAN NRV CARPAL TUNNE; COMMENT: [...] Documents on File Type Date Recorded 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
== END 2025-01-27 14:59 | disposition home or self-care (01) ==
PROVIDERS: PCP Nurse Practitioner Family; Visit Provider Student in an Organized Health Care Education/Training Program
DX: M34.1 CR(E)ST syndrome (principal); M81.0 Age-related osteoporosis without current pathological fracture; M15.9 Polyosteoarthritis, unspecified; Z51.81 Encounter for therapeutic drug level monitoring; Z79.899 Other long term (current) drug therapy; Z79.83 Long term (current) use of bisphosphonates
CPT/HCPCS: 99214; G2211

== ENCOUNTER → 2025-01-27 13:47 | Outpatient (BNVA) | payer MEDICARE, SELFPAY | PROVIDERS: PCP Nurse Practitioner Family; Visit Provider Student in an Organized Health Care Education/Training Program | DX: M15.9 Polyosteoarthritis, unspecified (principal); M81.0 Age-related osteoporosis without current pathological fracture; M34.1 CR(E)ST syndrome; E55.9 Vitamin D deficiency, unspecified; G25.81 Restless legs syndrome; Z51.81 Encounter for therapeutic drug level monitoring; Z79.83 Long term (current) use of bisphosphonates; Z79.899 Other long term (current) drug therapy | CPT/HCPCS: 99212 ==

== ENCOUNTER 2025-03-08 12:38 | Outpatient (AMB) | payer MEDICARE, SELFPAY ==
[2025-03-08 12:45] VITALS: BP 191/77; PULSE 65; BMI 27.1
--- NOTE | 2025-03-08 12:45 | A.OFFVIS_ITS ---
Vital Signs 03/08/25 12:45 Height 5 ft Weight 139 lb BMI 27.1 BP 191/77 H Blood Pressure Location Lt brachial Position Sitting Pulse 65 Intake Visit Reasons: hepatic cyst Intake Note: Basilia presents in the office as a new patient for a hepatic cyst. CC: She states that constipation is what she always deals with - she is having reflux and she takes medication to help with that but it does not seem to help all the time. 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 here for assessment Her main complaint is gerd she has breakthru sx usu at night maybe few times a week, takes rolaid and helps she takes omeprazole in the morning denies dysphagia she denies abdominal pain no n/v she can have occ constipation , ROS: Constitutional : No Weight loss, No Fever, No Chills ENT/Mouth : No sore throat, No Rhinorrhea Eyes: No Swelling, No Redness Cardiovascular : No Chest Pain, No SOB, No Edema Respiratory : No Cough, No Sputum, No Wheezing Gastrointestinal : see HPI Genitourinary : NO Dysuria, No Urinary Frequency, No Hematuria, No Urgency Musculoskeletal : + joint pain, No Myalgias, No Joint Swelling Skin : No Skin Lesions, No rash Neuro : No Weakness, No Numbness, No Dizziness, No Headache Psych : No Anxiety/Panic, No Depression Heme/Lymph: No Bruising, No Lymphadenopathy Endocrine : No Polyuria, No Polydipsia All other systems reviewed and are negative. Medical History Osteoporosis Constipation Cataract Vitamin D deficiency Anxiety Varicose veins of bilateral lower extremities with other complications Carpal tunnel syndrome Glaucoma long-term systemic steroid user DJD (degenerative joint disease) Atrophic vulva Allergic rhinitis Essential hypertension Hypercholesteremia Colonic polyp Surgical History H/O breast surgery H/O hernia repair H/O total hysterectomy History of colonoscopy History of carpal tunnel surgery Family History Mother Hypertension Diabetes Malignant lymphoma Father Myocardial infarct Hypertension Brother Hypertension Social History non smoker, no alcohol or drugs EXAM: GENERAL: The patient is well developed and nontoxic. VITAL SIGNS:see workflow HEENT: Nonicteric sclerae, PERRLA, EOMI. Oropharynx clear. Moist mucous membranes. Conjunctivae appear well perfused. No thyroid mass. CHEST: Chest wall is nontender. HEART: Regular rate and rhythm without murmurs. LUNGS: Clear to auscultation bilaterally. ABDOMEN: Soft, positive bowel sounds, nontender, no organomegaly.no flank tenderness SKIN: No rash, no excessive bruising, petechiae, or purpura. NEUROLOGIC: Cranial nerves II-XII intact without motor/sensory deficit. Psych: normal affect A/P: 1/ Liver cyst, septated, no sx or red flags 2/ asymptomatic gallstones 3/ Breakthru GERD PLAN: 1/ change timing PPI to evening, other options, BID dosing or change preperation--hold on EGD but if worsening sx then EGD 2/ repea tMRI to eval liver cyst PFSH Medical History Osteoporosis Constipation Cataract Vitamin D deficiency Anxiety Varicose veins of bilateral lower extremities with other complications Carpal tunnel syndrome Glaucoma long-term systemic steroid user DJD (degenerative joint disease) Atrophic vulva Allergic rhinitis Essential hypertension Hypercholesteremia Colonic polyp Surgical History H/O breast surgery H/O hernia repair H/O total hysterectomy History of colonoscopy History of carpal tunnel surgery Family History Mother Hypertension Diabetes Malignant lymphoma Father Myocardial infarct Hypertension Brother Hypertension Social History Household Members: None Housing: House Are you a primary reproductive healthcare assistant to a significant other at home: No Do you presently have visiting nurse or other home services: No Alcohol intake: never Patient Tobacco Use Status: Never used Tobacco Physical Exam Vital Signs: Last Vital Signs Pulse 65 03/08/25 12:45 BP 191/77 H 03/08/25 12:45 BMI result Body Mass Index 27.1 Assessment & Plan Assessment & Plan (1) Hepatic cyst: Code(s): K76.89 - Other specified diseases of liver Category: Medical Plan: as above Orders: Orders MR abdomen wo/w con Today K76.89 - Other specified diseases of liver Coding Level of Care Code New Pt Level 4 (30683) Diagnoses Hepatic cyst K76.89
--- OUTSIDE RECORDS SUMMARY | 2025-03-08 13:05 | XMS_ITS | Clinical Summary ---
Author Organization [facility] Address [address] [place] [address] Care Team Providers Care Weigher And Grader Name Role Phone Jackeline Tapia MD Primary Care Provider Surgical History Surgery Date Site/Laterality Comments COLONOSCOPY N/A PROCEDURE: HISTORICAL COLONOSCOPY CATARACT EXTRACTION PROCEDURE: HISTORICAL CATARACT REMOVAL OTHER SURGICAL HISTORY PROCEDURE: [place] TOT ABD HYST W/PARAORTIC & PELVIC LYMPH NODE ROSEANNA HERNIA REPAIR N/A PROCEDURE: HISTORICAL HERNIA REPAIR/ING CARPAL TUNNEL RELEASE 10/26/2021 Left PROCEDURE: [place] NEUROPLASTY &/TRANSPOS MEDIAN NRV CARPAL TUNNE; COMMENT: [...] Documents on File Type Date Recorded Patient General Foreman Expl anation Health Care Decision (hx) 08/26/2023 HE ALTH CARE PROXY Care Teams Weigher And Grader Relationship Specialty Start Date End Date Jackeline Tapia MD [address] [place] [address] PCP - General Family Medicine 03/30/21
== END 2025-03-08 13:32 | disposition home or self-care (01) ==
LOC: HO.HGI 12:39
PROVIDERS: PCP Family Medicine; Visit Provider Internal Medicine Gastroenterology
DX: K76.89 Other specified diseases of liver (principal)
CPT/HCPCS: 99204

== ENCOUNTER → 2025-03-08 12:38 | Outpatient (BNVA) | payer MEDICARE, SELFPAY | PROVIDERS: PCP Family Medicine; Visit Provider Internal Medicine Gastroenterology | DX: K76.89 Other specified diseases of liver (principal) | CPT/HCPCS: 99202 ==

== ENCOUNTER 2025-07-20 13:19 | Outpatient (AMB) | payer MEDICARE, SELFPAY ==
--- NOTE | 2025-07-20 13:42 | A.OFFVIS_ITS ---
Vital Signs 07/20/25 13:52 Height 5 ft Weight 135 lb BMI 26.4 BP 134/72 Blood Pressure Location Rt brachial Position Sitting Pulse 65 Pulse Source Pulse Oximeter Intake Visit Reasons: [facility] Intake Note: Patient presents for [facility] follow up. Allergies itraconazole (From Sporanox) Allergy (Intermediate, Verified 07/20/25 13:45) hives sulfamethoxazole (From Bactrim) Allergy (Intermediate, Verified 07/20/25 13:45) Thrush trimethoprim (From Bactrim) Allergy (Intermediate, Verified 07/20/25 13:45) thrush Medication List - Last Reconciled 07/20/25 by Denisa Farr MD acetaminophen ER (Tylenol Arthritis Pain) 650 mg PO Q12H PRN alendronate 70 mg PO QWEEK 90 days amlodipine 2.5 mg PO DAILY fluticasone propionate 50 mcg/actuation (Allergy Relief (fluticasone)) 1 spray intranasal BID hydrochlorothiazide 12.5 mg PO DAILY hydroxychloroquine 300 mg (1.5 x 200 mg) PO DAILY 90 days ketoconazole 2% appl topical lisinopril 40 mg PO DAILY mirabegron ER (Myrbetriq) 25 mg PO DAILY omeprazole 40 mg PO DAILY oxybutynin chloride 5 mg PO DAILY prednisone 1 mg PO DAILY pregabalin 75 mg PO BID 90 days HPI Comments Details: Patient is an 84-year-old female with hypertension, allergies, overactive bladder, GERD, polyarticular osteoarthritis status post spinal fusion, limited cutaneous sclerosis here today for follow up Interval History: Patient last seen 01/27/2025 with me. - On Hydroxychloroquine 300mg od, prednisone 1mg daily, ibandronate - Patient doing well overall - Was able to decrease her prednisone to 1mg without issue. - Raynaud's is stable - Also has calcinosis that drains periodically - No SOB - No falls or fractures - Complaining of restless legs in the night - Started on pregabalin 25mg bid - Ibandronate changed to alendronate due to worsening hip osteoporosis Today - On Hydroxychloroquine 300mg od, prednisone 3mg daily, alendronate 70mg weekly - No side effects from pregabalin, still has the leg pain and neuropathic sx asking if the dose can be increased - Saw ophthal but did not have the hcq color testing - Tolerating alendronate Rheumatologic History: Mild sclerodactyly; ++ DIAMANTE centromere++RF , CCP negative. 01/2023-Raynaud's, telangiectasias, esophageal dysmotility, Cutaneous calcifications removed from the fingertips of the left hand. History of synovitis in hands - methotrexate 7 tabs weekly, 1mg folic acid daily, 3mg prednisone daily and plaquenil 400mg po daily. Previously on leflunomide discontinued around 06/2022 due to weight loss. 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 DJD (degenerative joint disease) Atrophic vulva Allergic rhinitis Essential hypertension Hypercholesteremia Colonic polyp Surgical History H/O breast surgery H/O hernia repair H/O total hysterectomy History of colonoscopy History of carpal tunnel surgery Family History Mother Hypertension Diabetes Malignant lymphoma Father Myocardial infarct Hypertension Brother Hypertension Social History Household Members: None Housing: House Are you a primary health and social care teacher to a significant other at home: No Do you presently have visiting nurse or other home services: No Alcohol intake: never Patient Tobacco Use Status: Never used Tobacco Review of Systems Narrative Review of Systems Constitutional: Denies fever, chills, weight loss ENT: Denies vision changes, eye pain or eye redness, dental caries, dry mouth GI: Denies nausea, vomiting, diarrhea, abdominal pain, change in BM Pulm: Denies SOB, [place], hemoptysis, wheezing Cards: Denies chest pain, palpitations Skin: Denies Raynaud's, rash, nail changes, photosensitivity, TECHNICAL EDUCATION TEACHER: Denies headaches, weakness, paresthesias, recurrent falls MSK: as per HPI All other systems reviewed and are unremarkable except noted above Physical Exam Exam Exam: Vital signs reviewed Physical Examination CONSTITUITIONAL Patient alert and cooperative. Well appearing and in no apparent painful distress MSK Hands * Right Hand: Able to make a fist. No swelling or tenderness to palpation of the MCPs, PIPs or DIPs. * Left Hand: Able to make a fist. No swelling or tenderness to palpation of the MCPs, PIPs or DIPs. * Herbedens nodes noted bilaterally Wrists * Right Wrist: Full ROM to flexion and extension. No swelling or TTP * Left Wrist: Full ROM to flexion and extension. No swelling or TTP Elbows * Right Elbow: Full ROM. No swelling or TTP. No TTP of the medial epicondyle. No TTP of the lateral epicondyle * Left Elbow: Full ROM. No swelling or TTP. No TTP of the medial epicondyle. No TTP of the lateral epicondyle Shoulders * Right shoulder: No swelling noted. No TTP of the AC joint. No TTP of the subacromial bursa. No TTP of the posterior shoulder * Left shoulder: No swelling noted. No TTP of the AC joint. No TTP of the subacromial bursa. No TTP of the posterior shoulder * Decreased ROM bilaterally Knees * Right knee: No swelling noted. No TTP of the knee joint line. No TTP of pes anserine bursa * Left knee: Mild swelling. No TTP of the knee joint line. No TTP of pes anserine bursa. * Crepitations felt bilaterally Ankles * Right ankle: Good ankle dorsiflexion and plantar flexion. No swelling. No TTP of the ankle joint * Left ankle: Good ankle dorsiflexion and plantar flexion. No swelling. No TTP of the ankle joint Feet * Right foot: Negative squeeze test * Left foot: Negative squeeze test Tender points? * No tenderness to palpation of the bilateral trapezius, supraspinatus, anterior costochondral junctions, bilateral suboccipital muscle insertions SKIN No rashes Right Left Face 0 Anterior chest 0 Abdomen 0 Upper Abdomen 0 Forearm 0 0 Hand 2 2 Fingers 2 2 Thigh 0 0 Leg 0 0 Total/51 8 Results Reviewed Results Reviewed: 07/16/2025 [facility] WBC 5.0 Hb 11.8 Plt 264 BUN 13 Cr 0.52 eGFR 90 AST 23 ALT 16 Vitamin D 54.1 ESR 19 CRP 8 ECHO 01/2023 Conclusions: - Normal left ventricular size and systolic function. The visually estimated ejection fraction is between 65-70%. - Normal right ventricular cavity size and systolic function. - The left atrium is likely dilated. The right atrium is normal in size. - Aortic sclerosis without stenosis. - Tricuspid regurgitation envelope is inadequate for calculation of right ventricular systolic pressure. Normal right atrial pressure. CT Chest 06/2024 IMPRESSION: Prior granulomatous disease process. Histoplasmosis cannot be excluded. No acute airspace disease. Coronary artery disease and atherosclerosis disease. Delayed emptying suggesting esophageal dysmotility versus gastroesophageal reflux. Multilevel spondylosis resulting in multilevel grade 1 anterolisthesis. Status post posterior fusion T11-T12 with grade 1 anterolisthesis. 5 cm septated cystic lesion, right hepatic lobe. DEXA 12/2024 FINDINGS: The bone mineral density of the lumbar spine is 1.230 with a T-score of 0.4, and a Z-score of 2.6. This is indicative of normal bone mineral density. The bone mineral density of the left total hip is 0.826 with a T-score of -1.4, and a Z-score of 1.1. This is indicative of osteopenia. The bone mineral density of the left femoral neck is 0.652 with a T-score of -2.8, and a Z-score of -0.2. This is indicative of osteoporosis. Assessment & Plan Assessment & Plan (1) CREST (calcinosis, Raynaud's phenomenon, esophageal dysfunction, sclerodactyly, telangiectasia): Comment: mild sclerodactyly; ++ DIAMANTE centromere++RF , CCP negative. 01/2023-Raynaud's, telangiectasias, esophageal dysmotility, Cutaneous calcifications removed from the fingertips of the left hand. History of synovitis in hands - methotrexate 7 tabs weekly, 1mg folic acid daily, 3mg prednisone daily and plaquenil 400mg po daily. Previously on leflunomide discontinued around 06/2022 due to weight loss. 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 Currently in remission with no evidence of progression of her scleroderma. Raynaud's is under control with calcium channel lisy amlodipine. No ulcers noted. Had echo and CT done within the last 2 years without any evidence of pulmonary hypertension or ILD. Patient currently asymptomatic. We will recheck her echo and CT in 2025 Plan - Hydroxychloroquine 300mg daily - Patient to follow up with ophthal - Conservative measures for management of Raynaud's and calcinosis - Follow up GI for hepatic cyst found incidentally on CT chest - RTC 6 months - Labs before visit: CBC, CMP, ESR, CRP, Vitamin D (2) Osteoporosis: Comment: DEXA 12/2024: AP spine 0.4, Left femur total -1.4, Left femur neck -2.8 DEXA AP spine 0.1, Left femur total -0.1, Left femur neck -2.2 Ibandronate. discontinued 09/2024 for drug holiday. 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 I discussed switching to prolia vs weekly alendronate. Patient would prefer the alendronate. Alendronate has better efficacy for the hip than ibandronate Tolerating alendronate Plan - Alendronate 70mg weekly - Vitamin D supplementation (3) Polyarticular osteoarthritis: Code(s): M15.9 - Polyosteoarthritis, unspecified Plan: #Polyarticular OA Patient with polyarticular osteoarthritis overall stable. Titrating pregabalin to 75mg bid Plan - Pregabalin 75mg bid - Multivitamin with magnesium (4) Encounter for monitoring of hydroxychloroquine therapy: Code(s): Z51.81 - Encounter for therapeutic drug level monitoring; Z79.899 - Other fdc (current) drug therapy Plan: #Long-term Use of Hydroxychloroquine Discussed with patient the risks and benefits of hydroxychloroquine in managing the rheumatic condition Benefits include: - Reduced pain, reduce mortality, maintenance of remission and reduction of flares Risks include: - GI upset, skin hyperpigmentation, retinal toxicity (especially after more than 5 years of use), myopathy Advised yearly ophthalmology visits. Last visit 2023. (5) Encounter for ongoing osteoporosis therapy, bisphosphonates: Code(s): M81.0 - Age-related osteoporosis without current pathological fracture; Z79.83 - jail (current) use of bisphosphonates Plan: #Long-term Use of Bisphosphonates Risks and benefits of bisphosphonates in the management of osteoporosis Benefits include improved bone density, decreased fracture risk Risks include atypical femoral fractures, GI upset, esophageal strictures Contraindicated in patients with a creatinine clearance < 30 to 35 ml/min Keep vitamin-D at least 35 ng/mL Plan I spent 30 minutes reviewing the record and labs, taking a history, examining t he patient, discussing the treatment plan, ordering diagnostic work up and documenting in the medical record Orders: Orders Complete Blood Count Auto Diff 6 Months Z79.899 - Other fdc (current) drug therapy Comprehensive Met. Panel 6 Months Z. - Other fdc (current) drug therapy C Reactive Protein 6 Months Z79.899 - Other terminal operations supervisor (current) drug therapy Vitamin D 25-OH Total 6 Months E55.9 - Vitamin D deficiency, unspecified Erythrocyte Sedimentation Rate 6 Months Z79.899 - Other fdc (current) drug therapy Medications: Changed From pregabalin 50 mg PO BID 30 days 60 caps 1RF G25.81 - Restless legs syndrome To pregabalin 75 mg PO BID 180 caps 1RF 90 days G25.81 - Restless legs syndrome Coding Level of Care Code Est Pt Level 4 (59515) Complex EM visit Add On G2211 Diagnoses CREST (calcinosis, Raynaud's phenomenon, esophageal dysfunction, sclerodactyly, telangiectasia) M34.1 Age-related osteoporosis without current pathological fracture M81.0 Osteoporosis type: age-related Presence of current pathological fracture: without current pathological fracture Polyarticular osteoarthritis M15.9 Encounter for monitoring of hydroxychloroquine therapy Z51.81; Z79.899 Encounter for ongoing osteoporosis therapy, bisphosphonates M81.0; Z79.83
[2025-07-20 13:52] VITALS: BP 134/72; PULSE 65; BMI 26.4
--- OUTSIDE RECORDS SUMMARY | 2025-07-20 15:00 | XMS_ITS | Clinical Summary ---
Author Organization [facility] Address [address] [place] [address] Care Team Providers Care Supervisor Sunglasses Name Role Phone Jackeline Tapia MD Primary Care Provider Surgical History Surgery Date Site/Laterality Comments COLONOSCOPY N/A PROCEDURE: HISTORICAL COLONOSCOPY CATARACT EXTRACTION PROCEDURE: HISTORICAL CATARACT REMOVAL OTHER SURGICAL HISTORY PROCEDURE: [place] TOT ABD HYST W/PARAORTIC & PELVIC LYMPH NODE ROSEANNA HERNIA REPAIR N/A PROCEDURE: HISTORICAL HERNIA REPAIR/ING CARPAL TUNNEL RELEASE 10/26/2021 Left PROCEDURE: [place] NEUROPLASTY &/TRANSPOS MEDIAN NRV CARPAL TUNNE; COMMENT: [...] Patients (1 - 1-dose 75+ series) 2013 DTaP,Tdap,and Td Vaccines (2 - Td or Tdap) 03/05/2021 03/05/2011 Falls Risk Assessment 08/13/2022 Osteoporosis Screening (Bone Density Screening) 08/13/2022 Social Influencers of Health Screening 08/13/2022 Depression Screening 09/09/2024 COVID-19 Vaccine ( season) 2025 12/03/2020, 11/05/2020 Influenza Vaccine (#1) 2025 0, 06/29/2019, 05/27/2018, Additional history exists Pneumococcal Vaccine: [...] Documents on File Type Date Recorded Patient Jailer Chief Expl anation Health Care Decision (hx) 08/26/2023 HE ALTH CARE PROXY Care Teams Supervisor Sunglasses Relationship Specialty Start Date End Date Jackeline Tapia MD [address] [place] [address] PCP - General Family Medicine 03/30/21
--- OUTSIDE RECORDS SUMMARY | 2025-07-20 15:00 | XMS_ITS | Encounter Summary ---
Author Organization [facility] Address [address] [place] [address] Phone Care Team Providers Care Product Accountant Name Role Phone Jackeline Tapia MD Primary Care Provider +- [phone] Encounter Details Date Type Department Care Team (Late st Contact Info) Description 04/24/2021 Ancillary Orders [facility],Outside Imaging [address] [place] [address] System, Provider Not In, [facility] [address] [address] Social History Tobacco Use Types Packs/Day Years Used Date Smoking Tobacco: Never Smokeless Tobacco: Never Alcohol Use Standard Drinks/Week Comments Yes 0 (1 standard drink = 0.6 oz pur e alcohol) social Comments No Sex and Gender Information Value Date Recorded Sex Assigned at Not on file Legal Sex Female 9:29 AM EDT Gender Identity Not on file Sexual Orientation Not on file documented as of this encounter Plan of Treatment Not on file documented as of this encounter Results * MRI Lower Extremity Outside (No Interpretation) (04/24/2021 10:08 AM EDT) Narrative SYSTEMGENERATED, DOCUMENTATION - 04/24/2021 10:08 AM EDT This study is for PACS storage only and not for interpretation. us Provider Not In System [facility] OUTSIDE IMAGING W /OUT INTERPRETATION Final Result documented in this encounter Visit Diagnoses Not on filedocumented in this encounter Care Teams Product Accountant Relationship Specialty Start Date End Date Jackeline Tapia MD [address] [place] [id number] [email or web address] PCP - General Family Medicine 04/09/19 documented as of this encounter Additional Source Comments The information contained in this document represents components of the legal health record. It is not the complete legal health record.[facility]
--- OUTSIDE RECORDS SUMMARY | 2025-07-20 15:00 | XMS_ITS | Encounter Summary ---
Author Organization [facility] Address [address] [place] [address] Phone Care Team Providers Care Heater Engineer Helper Name Role Phone Jackeline Tapia MD Primary Care Provider +- [phone] Encounter Details Date Type Department Care Team (Late st Contact Info) Description 05/04/2019 Procedure Pass OR Admitting Dept - Virtual Department [address] [place] [address] Social History Tobacco Use Types Packs/Day Years [...] on file documented as of this encounter Visit Diagnoses Not on filedocumented in this encounter Care Teams Heater Engineer Helper Relationship Specialty Start Date End Date Jackeline Tapia MD [address] [place] [phone] [email or web address] PCP - General Family Medicine 04/09/19 documented as of this encounter Additional Source Comments The information contained in this document represents components of the legal health record. It is not the complete legal health record.[facility]
--- OUTSIDE RECORDS SUMMARY | 2025-07-20 15:00 | XMS_ITS | Clinical Summary ---
Author Organization [facility] Address [address] [place] [phone] Phone Care Team Providers Care Reference Data Expert Name Role Phone Jackeline Tapia MD Primary Care Provider [phone] Allergies Active Allergy Reactions Criticality Noted Date Comments Sulfamethoxazole-Trimethopri m Other (See Comments) Medium 04/30/2019 thrush Itraconazole Hives High 04/30/2019 Trazodone Mental Status Change,Dizziness Low 04/30/2019 Medications amLODIPine (NORVASC) 10 MG tablet Take 10 mg by mouth nightly at bedtime. Active atorvastatin (LIPITOR) 40 MG tablet Take 40 mg by mouth daily. Active calcium carbonate-vitam in D3 (CALTRATE 600 PLUS D) 600 mg (1,500 mg)-800 unit Chew Take 1 tablet by mouth daily. Active fluticasone propionate (FLONASE ALLERGY RELIEF) 50 mcg/actuation nasal spray 1 spray by Nasal route 2 (two) times a day. Active hydroCHLOROthia zide (HYDRODIURIL) 25 MG tablet Take 25 mg by mouth daily. Active ibandronate (BONIVA) 150 mg tablet Take 150 mg by mouth every 30 (thirty) days. Take in AM with glass of water prior to food, don't lie down for 30 minutes. Active ketoconazole 2 % cream Apply topically daily. Active latanoprost (XALATAN) 0.005 % ophthalmic solution Place 1 drop into each eye nightly at bedtime. Active lisinopril (PRINIVIL,ZESTR IL) 40 MG tablet Take 40 mg by mouth daily. Active metoprolol succinate (TOPROL-XL) 25 MG 24 hr tablet Take 25 mg by mouth daily. Active nystatin-emolli ent combo no.88 100,000 unit/gram cpgp by Topical (Top) route 2 (two) times a day. Active omeprazole (PRILOSEC) 20 MG capsule Take 20 mg by mouth daily. Active predniSONE (DELTASONE) 5 MG tablet Take 5 mg by mouth daily with breakfast. Active triamcinolone acetonide 0.1 % cream Apply topically 2 (two) times a day. Active acetaminophen (TYLENOL) 650 MG CR tablet Take 1,300 mg by mouth 2 (two) times a day. Active gabapentin (NEURONTIN) 100 MG capsule 1 Active leflunomide (ARAVA) 10 MG tablet 1 Active methotrexate 2.5 MG Oral tablet 1 Active predniSONE (DELTASONE) 1 MG tablet 1 Active hydrOXYchloroQU INE (PLAQUENIL) 200 mg tablet Take by mouth daily. 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 Not on phillip e 01/04/2023 Are you concerned about learning? Not on file 01/04/2023 No 01/04/2023 No 01/04/2023 Digital Access Answer Date Recorded No 02/02/2023 No 02/02/2023 No 02/02/2023 Reliable internet access at home? Not on file 02/02/2023 Device with a working camera? Not on file Comments No Sex and Gender Information Value Date Recorded Sex Assigned at Not on file Legal Sex Female 9:29 AM EDT Gender Identity Not on file Sexual Orientation Not on file Last Filed Vital Signs Vital Sign Reading Time Taken Comments Blood Pressure 151/75 05/04/2019 8:50 AM EDT Pulse 68 05/04/2019 8:50 AM EDT Temperature 36.2 C (97.2 F) 05/04/2019 8:50 AM EDT Respiratory Rate 16 05/04/2019 9:00 AM EDT Oxygen Saturation 98% 05/04/2019 8:50 AM EDT Inhaled Oxygen Concentration - - Weight 66.7 kg (147 lb) 04/24/2021 11:41 AM EDT Height 157.5 cm (5' 2 ) 04/24/2021 11:41 AM EDT Body Mass Index 26.89 04/24/2021 11:41 AM EDT Plan of Treatment Health Maintenance Due Date Last Done Comments CREATININE LEVEL 1938 POTASSIUM LEVEL 1938 DEPRESSION SCREENING 1950 PNEUMOCOCCAL VACCINES (50+ years) (2 of 2 - PPSV23) 11/04/2002 09/09/2002 OSTEOPOROSIS SCREENING INITIAL (ONE-TIME) 12/25/2003 RSV VACCINE (1 - 1-dose 75+ series) 2013 COVID-19 VACCINE (3 - Moderna risk series) 12/31/2020 12/03/2020, 11/05/2020 Adult Td,Tdap Booster 03/05/2021 03/05/2011 INFLUENZA VACCINE (#1) 2025 0, 06/29/2019, 05/23/2012, Additional history exists ZOSTER VACCINES Completed 09/11/2020, 08/09, 07/10/2020, Additional history exists HEPATITIS A VACCINES Aged Out No long er eligible based on patient's age to complete this topic HIB VACCINES Aged Out No longer eligi ble based on patient's age to complete this topic MENINGOCOCCAL VACCINES (ACWY) Aged Out No longer eligible based on patient's age to complete this topic MENINGOCOCCAL VACCINES (B) Aged Out N o longer eligible based on patient's age to complete this topic Medical Devices Not on file Insurance MEDICARE PART A & B [employer] SUPPLEMENT MEDICARE PART A & B [employer] MEDEX SUPPLEMENT MEDICARE PART A & B [employer] MEDEX SUPPLEMENT MEDICARE PART A & B BLUE CROSS MEDEX SUPPLEMENT Member Subscriber Plan / Payer (Ef fective 2003-Present) Name:Basilia Miramontes Member ID:[id number] Relation to Subscriber:Self Name:Basilia Miramontes Subscriber ID:[id number] Payer ID:[id number] Group ID:Not on file Type:Medicare Address: [employer] [address] [facility] MEDEX SUPPLEMENT MEDICARE PART A & B [employer] MEDEX SUPPLEMENT MEDICARE PART A & B [employer] MEDEX SUPPLEMENT MEDICARE PART A & B [employer] MEDEX SUPPLEMENT MEDICARE PART A & B [employer] MEDEX SUPPLEMENT Care Teams Reference Data Expert Relationship Specialty Start Date End Date Jackeline Tapia MD [address] [place] [phone] [email or web address] PCP - General Family Medicine 04/09/19 Additional Source Comments The information contained in this document represents components of the legal health record. It is not the complete legal health record.[facility]
--- OUTSIDE RECORDS SUMMARY | 2025-07-20 15:00 | XMS_ITS | Encounter Summary ---
Author Organization [facility] Address [address] [place] [phone] Phone Care Team Providers Care Jewelry Internship Name Role Phone Jackeline Tapia MD Primary Care Provider +- [phone] Encounter Details Date Type Department Care Team (Late st Contact Info) Description 04/24/2021 Ancillary Orders [facility],Outside Imaging [address] [place] [address] System, Provider Not In, [facility] [address] [address] Social History Tobacco Use Types Packs/Day Years [...] on filedocumented in this encounter Care Teams Jewelry Internship Relationship Specialty Start Date End Date Jackeline Tapia MD [address] [place] [phone] [email or web address] PCP - General Family Medicine 04/09/19 documented as of this encounter Additional Source Comments The information contained in this document represents components of the legal health record. It is not the complete legal health record.[facility]
== END 2025-07-20 14:37 | disposition home or self-care (01) ==
LOC: HO.RHES 13:19
PROVIDERS: PCP Family Medicine; Visit Provider Student in an Organized Health Care Education/Training Program
DX: M34.1 CR(E)ST syndrome (principal); M81.0 Age-related osteoporosis without current pathological fracture; M15.9 Polyosteoarthritis, unspecified; Z51.81 Encounter for therapeutic drug level monitoring; Z79.899 Other long term (current) drug therapy; Z79.83 Long term (current) use of bisphosphonates
CPT/HCPCS: 99214; G2211

== ENCOUNTER → 2025-07-20 13:19 | Outpatient (BNVA) | payer MEDICARE, SELFPAY | PROVIDERS: PCP Family Medicine; Visit Provider Student in an Organized Health Care Education/Training Program | DX: M34.1 CR(E)ST syndrome (principal); M81.0 Age-related osteoporosis without current pathological fracture; M15.9 Polyosteoarthritis, unspecified; Z51.81 Encounter for therapeutic drug level monitoring; Z79.899 Other long term (current) drug therapy | CPT/HCPCS: 99212 ==